=== PATIENT | male | born 1935 | race Caucasian/White ===

== ENCOUNTER → 2017-06-16 | Outpatient (REF) | payer MEDICARE, BC, OTHER | LOC: M LAB REF 13:49 | DX: R19.7 Diarrhea, unspecified (principal) | CPT/HCPCS: 87507 ==

== ENCOUNTER 2017-07-08 13:47 | Emergency (ER) | payer MEDICARE, BC, OTHER | END 2017-07-08 15:24 | disposition home or self-care (01) | LOC: M ED 13:47 | DX: M17.0 Bilateral primary osteoarthritis of knee (principal); I10 Essential (primary) hypertension; Z79.899 Other long term (current) drug therapy; Z87.891 Personal history of nicotine dependence | CPT/HCPCS: 99282 ==

== ENCOUNTER 2017-09-06 06:32 | Day surgery (SDC) | payer MEDICARE, BC, OTHER ==
[2017-09-06] MEDS: LR 1,000 ML IV (06:45)
[2017-09-06] MEDS ORDERED: PROPOFOL 200 MG/20 ML VIAL As Ordered (07:43)
[2017-09-06] MEDS ORDERED: LIDOCAINE 2% INJ 100 MG/5 ML SDV (FOR ANES.) As Ordered (07:43)
[2017-09-06 07:45] LABS: BEDSIDE GLUCOSE 112 MG/DL (83-110)
[2017-09-06] MEDS ORDERED: ePHEDrine SULFATE 25 MG/5 ML(5MG/ML) SYRINGE As Ordered (08:28)
== END 2017-09-06 09:29 | disposition home or self-care (01) ==
LOC: M OPP 06:32
DX: R19.7 Diarrhea, unspecified (principal); R19.4 Change in bowel habit; Z85.038 Personal history of other malignant neoplasm of large intestine; Z98.0 Intestinal bypass and anastomosis status; K57.30 Diverticulosis of large intestine without perforation or abscess without bleeding; I10 Essential (primary) hypertension; E78.5 Hyperlipidemia, unspecified; E11.9 Type 2 diabetes mellitus without complications; K44.9 Diaphragmatic hernia without obstruction or gangrene; K21.9 Gastro-esophageal reflux disease without esophagitis; R23.3 Spontaneous ecchymoses; M19.90 Unspecified osteoarthritis, unspecified site; G62.9 Polyneuropathy, unspecified; N40.1 Benign prostatic hyperplasia with lower urinary tract symptoms; Z92.21 Personal history of antineoplastic chemotherapy; Z87.891 Personal history of nicotine dependence; Z79.82 Long term (current) use of aspirin; Z79.84 Long term (current) use of oral hypoglycemic drugs; Z79.899 Other long term (current) drug therapy
CPT/HCPCS: 45380

== ENCOUNTER → 2018-11-13 | Outpatient (REF) | payer MEDICARE, OTHER ==
[~2018-11-13] MED LIST: ACET65TA OR; ASPI81TA26 PO; CAPS0.1C2 EX; CENTRUM SILVER OR; CO Q10 OR; GLIP5TAB2 OR; GLUC500T OR; GLUCTAB2 OR; MYLATAB OR; OMEGA FISH OIL OR; PRAV20TA2 OR; PROPYLTHIOURACIL OR; SUPETAB25 PO; VALS1TAB66; VALS40TA OR; VICO5TAB OR; VITA100067 PO; VITACAP31 OR
[2018-11-13 21:16] LABS: FOLATE > 24.0 NG/ML; VITAMIN B12 LEVEL 918 PG/ML
== END ==
LOC: M LAB REF 17:15
PROVIDERS: ATTEND Nurse Practitioner Family
DX: R41.3 Other amnesia (principal)

== ENCOUNTER → 2019-02-27 | Outpatient (REF) | payer MEDICARE, OTHER | LOC: M LAB REF 12:47 | PROVIDERS: ATTEND Nurse Practitioner Family | DX: R19.7 Diarrhea, unspecified (principal) ==

== ENCOUNTER 2019-03-29 13:12 | Emergency (ER) | payer MEDICARE, BC, OTHER ==
[~2019-03-29] VITALS: Ht 177.8 cm; Wt 88.7 kg
[~2019-03-29 13:12] MED LIST changes: -GLIP5TAB2 OR; +GLIP5TAB2 PO; -PRAV20TA2 OR; +PRAV20TA2 PO
[2019-03-29] MEDS ORDERED: NS 1,000 ML IV SCH (13:32)
[2019-03-29] MEDS ORDERED: METH25TAB PO (13:33)
[2019-03-29] MEDS ORDERED: GLIP10TA PO (13:33)
[2019-03-29] MEDS ORDERED: PRESCAP PO (13:36)
[2019-03-29] MEDS ORDERED: METF500T13 PO (13:36)
[2019-03-29] MEDS ORDERED: METF-839 PO (13:36)
[2019-03-29] MEDS ORDERED: LOSA50TA88 PO (13:36)
[2019-03-29] MEDS ORDERED: DONE10TA90 PO (13:36)
--- NOTE | 2019-03-29 14:03 | ECGEPIP ---
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
[2019-03-29 14:08] LABS: BASO % 0.3 % (0.0-1.0); EOS # 0.1 10^3/uL (0.0-0.5); HEMOGLOBIN 16.5 g/dl (13.5-17.5); LYMPH # 2.9 10^3/uL (1.5-5.0); LYMPH % 24.5 % (24.0-44.0); MEAN CORPUSCULAR HEMOGLOBIN 28.3 pg (27.0-33.0); MEAN CORPUSCULAR VOLUME 85.8 fl (80.0-96.0); MONO # 0.8 10^3/uL (0.0-0.8); MONO % 6.8 % (0.0-5.0); NEUTROPHILS # 7.9 10^3/uL (1.5-8.5); NEUTROPHILS % 67.1 % (36.0-66.0); PLATELET COUNT, AUTOMATED 332 10^3/uL (150-450); RED BLOOD COUNT 5.83 10^6/uL (4.30-6.10); WHITE BLOOD COUNT 11.8 10^3/uL (4.0-10.0)
[2019-03-29 14:37] LABS: ALBUMIN 3.5 GM/DL (3.2-5.2); BILIRUBIN,DIRECT 0.4 MG/DL (0.0-0.2); BILIRUBIN,TOTAL 2.7 MG/DL (0.2-1.0); TOTAL PROTEIN 6.7 GM/DL (6.4-8.2)
[2019-03-29] MEDS ORDERED: NS 500 ML IV ONE (14:45)
--- NOTE | 2019-03-29 14:48 | REP ---
Clinical: Abdominal pain. Technique: Axial noncontrast images from the lung bases to the pubic symphysis with coronal and sagittal re-formations. Comparison: None. Findings: Lung bases are clear. Atherosclerotic changes to the eighth thoracic aorta and coronary arteries noted without cardiomegaly. Liver, spleen, pancreas, bilateral adrenal glands are normal for noncontrast evaluation. Symmetric age-related changes to the kidneys noted without hydronephrosis. The enteric system is without obstruction or acute inflammatory process. Colonic and sigmoid diverticulosis noted without acute diverticulitis. Pelvis demonstrates normal bladder and moderately prominent prostate gland. No ascites. No free air. No adenopathy. Atherosclerotic changes of the aorta and vasculature noted without aneurysm. Musculoskeletal structures demonstrate degenerative changes without focal abnormality. Impression: 1. No acute abdominopelvic pathology appreciated. No ascites. No adenopathy. No focal inflammatory stranding. 2. Diverticulosis without acute diverticulitis. 3. Further chronic nonacute findings as above. Electronically Signed by Monroe Mcpherson MD 03/29/2019 02:39 P
[2019-03-29] MEDS ORDERED: ELIQ5TAB PO (15:35)
[2019-03-29] MEDS ORDERED: APIXABAN 2.5 MG TAB (ELIQUIS) PO ONE (15:45)
[2019-03-29 15:47] VITALS: BP 153/64
== END 2019-03-29 15:56 | disposition home or self-care (01) ==
LOC: M ED 13:12
DX: I48.91 Unspecified atrial fibrillation (principal); N18.9 Chronic kidney disease, unspecified; E11.9 Type 2 diabetes mellitus without complications; I12.9 Hypertensive chronic kidney disease with stage 1 through stage 4 chronic kidney disease, or unspecified chronic kidney disease; E07.9 Disorder of thyroid, unspecified; E78.5 Hyperlipidemia, unspecified; G62.9 Polyneuropathy, unspecified; Z85.038 Personal history of other malignant neoplasm of large intestine

== ENCOUNTER → 2019-04-20 | Outpatient (REF) | payer MEDICARE, OTHER ==
[~2019-04-20] MED LIST changes: +DONE10TA90 PO; +ELIQ5TAB PO; +GLIP10TA PO; +LOSA50TA88 PO; +METF-839 PO; +METF500T13 PO; +METH25TAB PO; +PRESCAP PO
== END ==
LOC: M LAB REF 17:06
PROVIDERS: ATTEND Nurse Practitioner Family
DX: E04.9 Nontoxic goiter, unspecified (principal)

== ENCOUNTER 2019-05-05 10:08 | Emergency (ER) | payer MEDICARE, OTHER, BC ==
[~2019-05-05] VITALS: Ht 175.3 cm; Wt 88.2 kg
[2019-05-05] MEDS ORDERED: ALBUTEROL SULFATE 2.5 MG/0.5 ML INH NEB SOLN INH ONE (10:45)
--- NOTE | 2019-05-05 11:14 | REP ---
Chest x-ray: Two views. Comparison study : January 21, 2010. History: Wheezing. Findings: The lungs are symmetrically aerated and free of infiltrate. Pleural angles are sharp. There are degenerative changes in the thoracic spine. The heart is not enlarged. There are clips in right upper quadrant of the abdomen. Pulmonary vasculature is not increased. There is some shift of the trachea to the right at the thoracic inlet consistent with enlargement of the left thyroid. This is unchanged from the 2010 study. Impression: No acute disease. Electronically Signed by Choco River MD 05/05/2019 11:04 A
[2019-05-05 11:21] LABS: BASO # 0.1 10^3/uL (0.0-0.2); BASO % 0.6 % (0.0-1.0); EOS # 0.8 10^3/uL (0.0-0.5); EOS % 7.5 % (0.0-3.0); HEMATOCRIT 46.8 % (42.0-52.0); HEMOGLOBIN 14.7 g/dl (13.5-17.5); LYMPH # 3.2 10^3/uL (1.5-5.0); LYMPH % 29.6 % (24.0-44.0); MEAN CORPUSCULAR HEMOGLOBIN 27.9 pg (27.0-33.0); MEAN CORPUSCULAR HGB CONC 31.4 g/dl (32.0-36.5); MONO # 0.9 10^3/uL (0.0-0.8); MONO % 8.2 % (0.0-5.0); NEUTROPHILS # 5.8 10^3/uL (1.5-8.5); PLATELET COUNT, AUTOMATED 292 10^3/uL (150-450); RED BLOOD COUNT 5.26 10^6/uL (4.30-6.10); WHITE BLOOD COUNT 10.9 10^3/uL (4.0-10.0)
[2019-05-05 11:45] LABS: CK-MB VALUE MASS 1.7 NG/ML (<3.6); CPK CREATINE PHOSPHOKINASE 36 U/L (39-308); MB/CK RELATIVE INDEX 4.72 (< OR =4); TROPONIN I < 0.02 NG/ML (< 0.10)
[2019-05-05 11:52] LABS: CALCIUM LEVEL 8.9 MG/DL (8.8-10.2); CREATININE FOR GFR 1.66 MG/DL (0.70-1.30); GLOMERULAR FILTRATION RATE 42.4 (>35); POTASSIUM SERUM 4.2 MEQ/L (3.5-5.1); THYROID STIMULATING HORMONE 1.33 uIU/ML (0.358-3.740); THYROXINE (T4) 7.8 UG/DL (4.5-12.0)
[2019-05-05] MEDS ORDERED: PRED10TA2 PO (12:51)
[2019-05-05] MEDS ORDERED: predniSONE 20 MG TAB PO STA (12:54)
[2019-05-05 13:07] VITALS: BP 167/76
--- NOTE | 2019-05-06 05:51 | ECGEPIP ---
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
== END 2019-05-05 13:27 | disposition home or self-care (01) ==
LOC: M ED 10:08
DX: J45.909 Unspecified asthma, uncomplicated (principal); I48.91 Unspecified atrial fibrillation; R00.1 Bradycardia, unspecified; I44.0 Atrioventricular block, first degree; I45.89 Other specified conduction disorders; R06.2 Wheezing; E11.9 Type 2 diabetes mellitus without complications; I10 Essential (primary) hypertension; E07.9 Disorder of thyroid, unspecified; Z85.038 Personal history of other malignant neoplasm of large intestine; Z90.49 Acquired absence of other specified parts of digestive tract; Z79.01 Long term (current) use of anticoagulants; Z79.84 Long term (current) use of oral hypoglycemic drugs; Z79.899 Other long term (current) drug therapy

== ENCOUNTER → 2019-05-24 | Outpatient (REF) | payer MEDICARE, OTHER ==
[~2019-05-24] MED LIST changes: +PRED10TA2 PO
[2019-05-24 18:00] LABS: TOTAL PROTEIN 5.9 GM/DL (6.4-8.2)
[2019-05-24 18:06] LABS: FOLATE > 24.0 NG/ML; VITAMIN B12 LEVEL 718 PG/ML
== END ==
LOC: M LAB REF 16:16
PROVIDERS: ATTEND Internal Medicine
DX: E11.40 Type 2 diabetes mellitus with diabetic neuropathy, unspecified (principal); E07.9 Disorder of thyroid, unspecified

== ENCOUNTER → 2019-05-30 | Outpatient (CLI) | payer MEDICARE, OTHER ==
[2019-05-30 12:25] LABS: BASO % 0.6 % (0.0-1.0); EOS # 0.4 10^3/uL (0.0-0.5); EOS % 5.6 % (0.0-3.0); HEMATOCRIT 43.1 % (42.0-52.0); HEMOGLOBIN 13.4 g/dl (13.5-17.5); LYMPH # 2.1 10^3/uL (1.5-5.0); LYMPH % 33.9 % (24.0-44.0); MEAN CORPUSCULAR HEMOGLOBIN 27.9 pg (27.0-33.0); MEAN CORPUSCULAR HGB CONC 31.1 g/dl (32.0-36.5); MEAN CORPUSCULAR VOLUME 89.8 fl (80.0-96.0); MONO # 0.5 10^3/uL (0.0-0.8); MONO % 7.4 % (0.0-5.0); NEUTROPHILS # 3.3 10^3/uL (1.5-8.5); NEUTROPHILS % 52.2 % (36.0-66.0); PLATELET COUNT, AUTOMATED 248 10^3/uL (150-450); WHITE BLOOD COUNT 6.2 10^3/uL (4.0-10.0)
[2019-05-30 13:04] LABS: ALBUMIN 3.4 GM/DL (3.2-5.2); BILIRUBIN,TOTAL 1.3 MG/DL (0.2-1.0); CALCIUM LEVEL 8.8 MG/DL (8.8-10.2); CREATININE FOR GFR 1.5 MG/DL (0.70-1.30); FREE T4 0.93 NG/DL (0.76-1.46); GLOMERULAR FILTRATION RATE 47.7 (>35); POTASSIUM SERUM 4.2 MEQ/L (3.5-5.1); THYROID STIMULATING HORMONE 1.7 uIU/ML (0.358-3.740)
== END ==
LOC: M LAB 10:31
PROVIDERS: ATTEND Internal Medicine Gastroenterology
DX: R19.7 Diarrhea, unspecified (principal)

== ENCOUNTER → 2019-06-01 | Outpatient (REF) | payer MEDICARE, OTHER | LOC: M LAB REF 15:08 | PROVIDERS: ATTEND Internal Medicine Gastroenterology | DX: R19.7 Diarrhea, unspecified (principal) ==

== ENCOUNTER → 2020-03-19 | Outpatient (CLI) | payer MEDICARE, BC, OTHER ==
[2020-03-19 13:18] LABS: CREATININE FOR GFR 1.94 MG/DL (0.70-1.30); GLOMERULAR FILTRATION RATE 35.4 (>35)
== END ==
LOC: M LAB 12:03
PROVIDERS: ATTEND Otolaryngology
DX: E04.9 Nontoxic goiter, unspecified (principal)

== ENCOUNTER → 2020-03-24 | Outpatient (CLI) | payer MEDICARE, BC, OTHER ==
[~2020-03-24] MED LIST changes: +ISOVUE-370 76% 100ML VIAL As Ordered ONE
--- NOTE | 2020-03-24 10:23 | REPVR ---
PROCEDURE INFORMATION: Exam: CT Neck With Contrast Exam date and time: 03/24/2020 9:45 AM Age: 84 years old Clinical indication: Condition or disease; Other: Large goiter TECHNIQUE: Imaging protocol: Computed tomography images of the neck with intravenous contrast. Radiation optimization: All CT scans at this facility use at least one of these dose optimization techniques: automated exposure control; mA and/or kV adjustment per patient size (includes targeted exams where dose is matched to clinical indication); or iterative reconstruction. Contrast material: ISOVUE 370; Contrast volume: 50 ml; Contrast route: INTRAVENOUS (IV); COMPARISON: No relevant prior studies available. FINDINGS: Nasopharynx: Unremarkable. Oropharynx: Unremarkable. No significant tonsillar enlargement. Hypopharynx: Unremarkable. Larynx: Unremarkable. Normal epiglottis. Retropharyngeal space: Unremarkable. Submandibular/Parotid glands: Normal. Glands are normal in size. Thyroid: There is diffuse, masslike enlargement of the thyroid gland, with superior submandibular and inferior substernal extension. It appears heterogeneous, with ill-defined hypodensities and scattered calcifications. This measures up to 11.4 x 6.2 x 11 cm. There is mass effect upon the trachea and esophagus, both of which are displaced to the right. Lymph nodes: Unremarkable. No lymphadenopathy. Trachea: Visualized trachea is unremarkable. Lungs: Unremarkable as visualized. Bones/joints: Unremarkable. No acute fracture. Soft tissues: IMPRESSION: Markedly enlarged thyroid gland, compatible with goiter, with submandibular and substernal extension. Electronically signed by: Jasmin Ace On 03/24/2020 10:23:56 AM
== END ==
LOC: M RAD 08:59
PROVIDERS: ATTEND Otolaryngology
DX: E05.00 Thyrotoxicosis with diffuse goiter without thyrotoxic crisis or storm (principal)
CPT/HCPCS: 70491; Q9967

== ENCOUNTER → 2020-05-15 | Outpatient (REF) | payer MEDICARE, OTHER ==
[~2020-05-15] MED LIST changes: -ISOVUE-370 76% 100ML VIAL As Ordered ONE
== END ==
LOC: M LAB REF 09:06
PROVIDERS: ATTEND Dermatology
DX: L90.5 Scar conditions and fibrosis of skin (principal)

== ENCOUNTER → 2021-02-10 | Outpatient (REF) | payer MEDICARE, OTHER | LOC: M LAB REF 16:23 | PROVIDERS: ATTEND Internal Medicine | DX: C18.9 Malignant neoplasm of colon, unspecified (principal) ==

== ENCOUNTER 2021-02-14 16:49 | Emergency (ER) | payer MEDICARE, OTHER ==
[~2021-02-14] VITALS: Ht 182.9 cm; Wt 102.3 kg
[2021-02-14] MEDS ORDERED: DERMABOND TOPICAL SKIN ADHESIVE TOP ONE (17:40)
--- OUTSIDE RECORDS SUMMARY | 2021-02-14 17:41 | CCD | Continuity of Care Document ---
Author Author [facility] Organization Unknown Address [address] [place] [address] Phone [phone] Care Team Providers Care Junior Loan Processor Name Role Phone Tanika Zamora M.D. AUTM [phone] Problems Active Problems Provider Date Numbness Umberto Ross M.D. Onset: 05/24/2019 Memory impairment Umberto Ross M.D. Onset: 05/24/2019 Social History Type Date Description Comments Sex Unknown Tobacco Use Start: Unknown Patient has never smoked Allergies, Adverse Reactions, Alerts Description No Known Drug Allergies Medications Active Medications SIG Qnty Indications Ordering Provide r Date Memantine HCL 10mg Tablets take 1/2 tab twice a day for 2 weeks then take1 by mouth twice a day 60tabs Umberto Ross M.D. 05/24/2019 Donepezil HCL 10mg Tablets take one tablet by mouth every day at bedtime 30tabs Yara Bower Eliquis 2.5mg Tablets pt takes twice a day Umberto Ross M.D. Immunizations Description No Information Available Vital Signs Date Vital Result Comment 12/01/2020 12:13pm Respiratory Rate 12 /min Height 70.5 inches 5'10.50" Weight 204.00 lb BMI (Body Mass Index) 28.9 kg/m2 [place] Body Weight 166 lb 03/13/2020 10:47am Respiratory Rate 12 /min Height 70.5 inches 5'10.50" Weight 204.00 lb BMI (Body Mass Index) 28.9 kg/m2 [place] Body Weight 166 lb Results Description No Information Available Procedures Date Code Description Status 01/09/2021 30582 Sympathetic Skin Responses Compl eted 01/09/2021 77335 Test Autonomic Nervous System, C ardiovagal Innervation Completed 01/09/2021 63710 Artery Study Extremity Mult Leve ls Bilateral Completed 01/08/2021 30529 EEG Recording Awake & Asleep Com pleted 12/01/2020 05640 Office/Outpatient Established Mo d MDM 30-39 Min Completed 12/01/2020 3288F Fall Risk Assessment Documented Completed Medical Devices Description No Information Available Encounters Type Date Location Provider Dx Diagnosis Office Visit 12/01/2020 11:45a [facility] Umberto chen M.D. 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 01/09/2021 E11.40 Type 2 diabetes brandi itus with diabetic neuropathy, unspecified Ans/VS 01/09/2021 E11.59 Type 2 diabetes mellitus with ot her circulatory complications Ans/VS 01/08/2021 R41.82 Altered mental status, unspecifi ed EEG 12/01/2020 F01.50 Vascular dementia without behavi oral disturbance Umberto Ross M.D. Plan of Treatment Future Appointment(s):* 2021 11:00 am - Umberto Ross M.D. at [facility] Functional Status Description No Information Available Mental Status Description No Information Available Referrals Description No Information Available
--- OUTSIDE RECORDS SUMMARY | 2021-02-14 17:41 | CCD | Continuity of Care Document ---
Author Author Jones Loving M.D. Organization Unknown Address [address] [place] [address] [address] [place] [address] Phone [phone] Care Team Providers Care Inclusion Internship Name Role Phone Tanika Loving MD AUTM [phone] Scott Deluca MD AUTM [phone] Adriana Ferrara [employer] AUTM [phone] Tavo Tesfaye MD AUTM [phone] [facility] - Ortho AUTM Harika Burns MD AUTM [phone] Jay Kirkpatrick DO AUTM [phone] Problems Active Problems Provider Date Toxic diffuse goiter with no crisis Criss Weber,CECIL Onse t: 11/13/2019 Cough Tanika Loving M.D. Onset: 0 Indigestion Tanika Loving M.D. Onset: 0 Type 2 diabetes mellitus with diabetic neuropathy, uns pecified Tanika Loving M.D. Onset: 11/13/2019 Pure hypercholesterolemia Tanika Loving M.D. Onset: Hypertensive chronic kidney disease with stage 1 through stage 4 chronic kidney disease, or unspecified chronic kidney disease Tanika Loving M.D. Onset: 11/13/2019 Chronic kidney disease stage 3 Tanika Loving M.D. Onset : 11/13/2019 Paroxysmal atrial fibrillation Tanika Loving M.D. Onset : 11/13/2019 Long-term current use of anticoagulant David Villalobos Onset: 11/13/2019 Allergic rhinitis Tanika Loving M.D. Onset: 0 Diarrhea Tanika Loving M.D. Onset: 0 Social History Type Date Description Comments Sex Unknown ETOH Use Currently consumes alcohol 3 per week Tobacco Use Start: Unknown End: Unknown Patient is a former smoker X20YRS 1 PACK A WEEK. QUIT AT AGE 36. Allergies and adverse reactions Description No Known Drug Allergies Medications Active Medications SIG Qnty Indications Ordering Provide r Date Hydralazine HCL 10mg Tablets 1 by mouth bid Tanika Loving M.D. 10/09/19 21 Hydrochlorothiazide 25mg Tablets 1 by mouth every day Tanika Loving M.D. 10/09/19 21 Glipizide 5mg Tablets Take 1 Tablets By Mouth Twice A Day 180tabs Tanika Loving M.D. 2020 Vitamin B Complex-C Capsules 1 by mouth every day Tanika Loving M.D. 05/27/19 21 Centrum Silver 50+Men 50+Men Table ts 1 by mouth every day Tanika Loving M.D. 05/27/19 21 Preservision Areds 2 Areds 2 Capsu les 1 by mouth twice a day Tanika Loving M.D. 2020 Total Memory & Focus Formula Tablets qd Tanika Loving M.D. 05/27/2020 Gabapentin 100mg Capsules 1 by mouth bid Neuro Tanika Loving M.D. 03/06/2020 Microspacer Misc as precribed dx copd/sob/cough 2units Tanika Loving M.D. 03/06/20 20 Duloxetine HCL 20[address] C[address] Part Take One Capsule By Mouth Every Day 90caps David Villalobos 02/05/2020 Memantine HCL 10mg Tablets Take One Tablet By Mouth Twice A Day 180tabs Tanika Loving M.D. Losartan Potassium 100mg Tablets Take One Tablet By Mouth qhs Tanika Loving M.D. 10/30 Tradjenta 5mg Tablets 1 by mouth every morning 90tabs Tanika Loving M.D. 09/18/19 [address] Take One Capsule By Mouth Every Day 90caps David Villalobos 05/30/2019 Benzonatate 200mg Capsules Take One Capsule By Mouth Three Times A Day as Needed For Cough 60caps Tanika Loving M.D. 05/14/2019 Proair HFA 108(90Base) mcg/Act Aer osol 2 puffs up to four times daily as needed for cough or shortness of breath 8.500gm R06.2 Tanika Loving M.D. 04/11/2019 Fluticasone Propionate Nasal Preston Aller gy Relief 24- Hour 50mcg/Act Suspension 2 sprays each nostril daily x 2 weeks then as needed 15.800ml Criss Weber FNP 01/29/2019 Donepezil HCL 10mg Tablets Take One Tablet By Mouth Every Day 30tabs Tanika Loving M.D. 01/29 Timolol Maleate 0.5% Solution Instill One Drop Into Each Eye Two Times A Day 15units Tanika meyer M.D. 11/13/2018 Ge100 Blood Glucose Test Strips S trips Test Once Daily E11.9 100units Criss Weber FNP 10/02 Methimazole 5mg Tablets take one tablet ,w,, tuesday 60tabs Tanika Loving M.D. 018 Accu-Chek Compact Plus Care Kit K it Use bid E11.9 1brandon Loving M.D. 06/23/19 17 Accu Chek Compact Plus Kit test bid or as directed e11.9 1unCriss Ordoñez FNP 05/19/2016 Pravastatin Sodium 40mg Tablets Take One Tablet By Mouth Every Day 90tabs Nemesio Villalobos Eliquis 2.5mg Tablets 1 by mouth twice a day Unknown Colesevelam HCL 625mg Tablets Take One To Two Tablets By Mouth Three Times A Day 180tabs Tanika Loving M.D. Calcitriol 0.25mcg Capsules 1 by mouth every day Unknown Medications Administered in Office Medication SIG Qnty Indications Ordering Provider Date Covid-19 vaccine, Unspecified Inj ection Unknown 05/19/2020 Immunizations CPT Code Status Date Vaccine Lot # U-Flu Given 01/17/2020 Influenza,Unspecified U-Flu Given 02/20/2019 Influenza,Unspecified [id number] Given 05/16/2018 Pneumovax 23 [id number] U-Flu Given 02/28/2018 Influenza,Unspecified U-PneuC Given 02/24/2016 Prevnar 13 [id number] Refused 05/16/2018 Shingrix Zoster Vaccine (HZV), Recombinant, Subunit, Adjuvanted 36410 Refused 05/16/2018 Zoster Vaccine [id number] Refused 05/16/2018 Tetanus/Diptheria(Td)Toxoids Preservative Free Vital Signs Date Vital Result Comment 02/10/2021 9:30am BP Systolic 140 mmHg BP Diastolic 80 mmHg BP Systolic Recheck 144 mmHg BP Diastolic Recheck 80 mmHg Heart Rate 56 /min Height 70.5 inches 5'10.50" Weight 212.00 lb BMI (Body Mass Index) 30.0 kg/m2 10/08/2020 1:32pm BP Systolic 150 mmHg BP Diastolic 80 mmHg BP Systolic Recheck 144 mmHg BP Diastolic Recheck 80 mmHg Heart Rate 54 /min Height 70.5 inches 5'10.50" Weight 210.00 lb BMI (Body Mass Index) 29.7 kg/m2 Results Test Acquired Date Facility Test Result H/L Range Note Laboratory test finding 02/10/2021 [facility] [address] [place] [address] [phone] Carcinoembryonic Antigen 2.5 NG/ML Normal <2.5 1 Complete Blood Count 02/10/2021 [facility] Machine Operator: [place] [address] [phone] WBC 8.1 x10*3/UL 4.1 - 10.9 RBC 5.04 x10*6/UL 4.20 - 6.30 Hemoglobin 14.3 g/dL 12.0 - 18.0 Hematocrit 43.1 % 37.0 - 51.0 MCV 85.5 fL 80.0 - 97.0 MCH 28.4 pg 26.0 - 32.0 MCHC 33.3 g/dL 31.0 - 38.0 RDW 12.9 % 11.6 - 13.7 PLT 215 x10*3/UL 140 - 440 MPV 8.6 FL 7.8 - 11.0 Lymph % 28.3 % 10.0 - 58.5 Mid % 6.7 % 1.7 - 9.3 Neut % 65.0 % 37.0 - 92.0 Lymph # 2.3 x10*3/UL 0.6 - 4.1 Mid # 0.5 x10*3/UL 0.1 - 0.6 Neut # 5.3 x10*3/UL 2.0 - 7.8 A1c 02/10/2021 [facility] Machine Operator: Dr Almas Macias [place], [place] [id number] [phone] Hba1c 6.5 % High <5.7 2 Est Avg Glucose 140 mg/dL High 60 - 110 Laboratory test finding 02/10/2021 [facility] [employer] [facility] zoe brice Monogram Machine Operator: Dr Almas Macias [place], [place] [id number] [phone] Magnesium 1.7 mg/dL Low 1.8 - 2.4 Basic Metabolic Panel 02/10/2021 [facility] Machine Operator: Dr Almas Macias [place], [place] [id number] [phone] Glucose 143 mg/dL High 74 - 99 3 BUN 31 mg/dL High 7 - 18 Creatinine 1.9 mg/dL High 0.6 - 1.3 Sodium 141 mEq/L 136 - 145 Potassium 4.4 mEq/L 3.5 - 5.1 Chloride 103 mEq/L 98 - 107 Carbon Dioxide 32 mEq/L 21 - 32 Calcium 9.5 mg/dL 8.5 - 10.1 GFR 34 mL/min Low >60 GFR 41 mL/min Low >60 4 Laboratory test finding 02/10/2021 [facility] [employer] [facility] zoe brice Monogram Machine Operator: Dr Coburn [place] [id number] [phone] Thyroid Stimulating Hormone 0.37 uIU/mL 0.3 6 - 3.74 Complete Blood Count 08/28/2020 [facility] Machine Operator: Dr Almas Macias [place], [place] [id number] [phone] WBC 8.4 x10*3/UL 4.1 - 10.9 RBC 5.01 x10*6/UL 4.20 - 6.30 Hemoglobin 14.2 g/dL 12.0 - 18.0 Hematocrit 42.3 % 37.0 - 51.0 MCV 84.4 fL 80.0 - 97.0 MCH 28.4 pg 26.0 - 32.0 MCHC 33.6 g/dL 31.0 - 38.0 RDW 13.0 % 11.6 - 13.7 PLT 242 x10*3/UL 140 - 440 MPV 8.3 FL 7.8 - 11.0 Lymph % 25.6 % 10.0 - 58.5 Mid % 5.9 % 1.7 - 9.3 Neut % 68.5 % 37.0 - 92.0 Lymph # 2.1 x10*3/UL 0.6 - 4.1 Mid # 0.6 x10*3/UL 0.1 - 0.6 Neut # 5.7 x10*3/UL 2.0 - 7.8 A1c 08/28/2020 [facility] Machine Operator: Dr Almas Macias [place] [id number] [phone] Hba1c 6.6 % High <5.7 5 Est Avg Glucose 143 mg/dL High 60 - 110 Laboratory test finding 08/28/2020 [facility] Monogram Machine Operator: [place] [address] [phone] Magnesium 1.6 mg/dL Low 1.8 - 2.4 Comprehensive Chem Profile 08/28/2020 [facility] Machine Operator: [place] [address] [phone] Glucose 148 mg/dL High 74 - 99 6 BUN 35 mg/dL High 7 - 18 Creatinine 2.0 mg/dL High 0.6 - 1.3 Sodium 142 mEq/L 136 - 145 Potassium 4.2 mEq/L 3.5 - 5.1 Chloride 103 mEq/L 98 - 107 Carbon Dioxide 32 mEq/L 21 - 32 Calcium 9.2 mg/dL 8.5 - 10.1 Alk. Phosphatase 87 mg/dL 46 - 116 Total Bilirubin 1.4 mg/dL High 0.2 - 1.0 Ast (Sgot) 12 U/L Low 15 - 37 Alt (SGPT) 22 U/L 12 - 78 Albumin 3.8 g/dL 3.4 - 5.0 Total Protein 6.8 g/dL 6.4 - 8.2 A/G Ratio 1.27 CALC 1.00 - 1.90 GFR 32 mL/min Low >60 GFR 39 mL/min Low >60 7 Lipid Profile 08/28/[address] [facility] [address] [facility] Machine Operator: [place] [address] [phone] Cholesterol 192 mg/dL 131 - 200 Triglycerides 206 mg/dL High 30 - 150 HDL Cholesterol 54 mg/dL 35 - 60 LDL (Calculated) 97 CALC 50 - 159 Laboratory test finding 08/28/2020 [facility] [employer] [facility] david Monogram Machine Operator: [place] [address] [phone] Thyroid Stimulating Hormone 0.10 uIU/mL Low 0.3 6 - 3.74 Laboratory test finding 08/28/2020 [facility]: [place] [address] [phone] T4 Free 1.34 ng/dL 0.76 - 1.46 1 THE CEA ASSAY IS PERFORMED O N THE [employer] BY CHEMILUMINESCENCE AND SHOULD NOT BE COMPARED INTERCHANGEABLY WITH OTHER METHODS. IT SHOULD NOT BE USED ALONE A SCREENING TEST OR DIAGNOSIS FOR THE PRESENCE OR ABSENCE OF MALIGNANT DISEASE. PREDICTIONS OF DISEASE RECURRENCE SHOULD NOT BE BASED SOLELY ON VALUES OBTAINED FROM SERIAL PATIENT SERUM VALUES. 2 Lab Result Notes: Pre-Diabetes 5.7 - 6.4 % Diabetes = or > 6.5% 3 100-125 mg/dL PRE-DIABET ES/FASTING >126 mg/dL DIABETES/FASTING 4 CHRONIC KIDNEY DISEASE STAGI NG PER NKF STAGE I & II GFR >= 60 NORMAL TO MILDLY DECREASED STAGE III GFR 30-59 MODERATELY DECREASED STAGE IV GFR 15-29 SEVERELY DECREASED STAGE V GFR <15 VERY LITTLE GFR LEFT ESRD GFR <15 ON PHARMACEUTICAL LABORATORY TECHNICIAN 5 Lab Result Notes: Pre-Diabetes 5.7 - 6.4 % Diabetes = or > 6.5% 6 100-125 mg/dL PRE-DIABET ES/FASTING >126 mg/dL DIABETES/FASTING 7 CHRONIC KIDNEY DISEASE STAGI NG PER NKF STAGE I & II GFR >= 60 NORMAL TO MILDLY DECREASED STAGE III GFR 30-59 MODERATELY DECREASED STAGE IV GFR 15-29 SEVERELY DECREASED STAGE V GFR <15 VERY LITTLE GFR LEFT ESRD GFR <15 ON PHARMACEUTICAL LABORATORY TECHNICIAN Procedures Date Code Description Status 01/22/2021 666671197 Diabetic Retinal Eye Exam Comple mitch 10/08/2020 84758 Office/Outpatient Established Mo d MDM 30-39 Min Completed 08/28/2020 28191 Office/Outpatient Established Mo d MDM 30-39 Min Completed 09/16/2017 [id number] Diabetic Retinal Eye Exam Comple mitch 09/06/2017 10283770 Colonoscopy Completed 11/22/2016 [id number] Diabetic Retinal Eye Exam Comple mitch 01/14/2015 [id number] Colonoscopy Completed Medical Devices Description No Information Available Encounters Type Date Location Provider Dx Diagnosis Office Visit 10/08/2020 1:30p Mark Morales P.CN[facility]olas Loving M.D. 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 in oth diseases cla ssd elswhr w/o behavrl disturb I12.9 Hypertensive chronic kidney disease w stg 1-4/unsp chr kdny N18.30 Chronic kidney disease, stag e 3 unspecified E11.22 Type 2 diabetes mellitus w d iabetic chronic kidney disease G62.9 Polyneuropathy, unspecified R19.7 Diarrhea, unspecified C18.9 Malignant neoplasm of colon, unspecified E04.2 Nontoxic multinodular goiter J45.909 Unspecified asthma, uncompli cated K44.9 Diaphragmatic hernia without obstruction or gangrene M15.9 Polyosteoarthritis, unspecif ied I48.0 Paroxysmal atrial fibrillati on 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 Adam Loving M.D. 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 02/10/2021 I12.9 Hypertensive chronic kidney disease with stage 1 through stage 4 chronic kidney disease, or unspecified chronic kidney disease Tanika Loving M.D. 02/10/2021 N18.30 Chronic kidney disease, stage 3 unspecified Tanika Loving M.D. 02/10/2021 E11.22 Type 2 diabetes mellitus with di abetic chronic kidney disease Tanika Loving M.D. 02/10/2021 G62.9 Polyneuropathy, unspecified Celi Loving M.D. 02/10/2021 R19.7 Diarrhea, unspecified Tanika peña M.D. 02/10/2021 C18.9 Malignant neoplasm of colon, uns pecified Tanika Loving M.D. 02/10/2021 E04.2 Nontoxic multinodular goiter Adam Loving M.D. 02/10/2021 J45.909 Unspecified asthma, uncomplicate d Tanika Loving M.D. 02/10/2021 F02.80 Dementia in other di seases classified elsewhere without behavioral disturbance Tanika Loving M.D. 02/10/2021 K44.9 Diaphragmatic hernia without obs truction or gangrene Tanika Loving M.D. 02/10/2021 M19.90 Unspecified osteoarthritis, unsp ecified site Tanika Loving M.D. 02/10/2021 I48.0 Paroxysmal atrial fibrillation Tre Loving M.D. 02/10/2021 Z79.01 automotive accessory installer (current) use of antic oagulants Tanika Loving M.D. 10/08/2020 E05.00 Thyrotoxicosis with diffuse goiter without thyrotoxic crisis or storm Tanika Loving M.D. 10/08/2020 F02.80 Dementia in other di seases classified elsewhere without behavioral disturbance Tanika Loving M.D. 10/08/2020 I12.9 Hypertensive chronic kidney disease with stage 1 through stage 4 chronic kidney disease, or unspecified chronic kidney disease Tanika Loving M.D. 10/08/2020 N18.30 Chronic kidney disease, stage 3 unspecified Tanika Loving M.D. 10/08/2020 E11.22 Type 2 diabetes mellitus with di abetic chronic kidney disease Tanika Loving M.D. 10/08/2020 G62.9 Polyneuropathy, unspecified Celi Loving M.D. 10/08/2020 R19.7 Diarrhea, unspecified Tanika peña M.D. 10/08/2020 C18.9 Malignant neoplasm of colon, uns pecdottie Loving M.D. 10/08/2020 E04.2 Nontoxic multinodular goiter Adam Loving M.D. 10/08/2020 J45.909 Unspecified asthma, uncomplicate d Tanika Loving M.D. 10/08/2020 K44.9 Diaphragmatic hernia without obs truction or gangrene Tanika Loving M.D. 10/08/2020 M15.9 Polyosteoarthritis, unspecified Tanika Loving M.D. 10/08/2020 I48.0 Paroxysmal atrial fibrillation Tre Loving M.D. 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 08/28/2020 I48.0 Paroxysmal atrial fibrillation Tre Loving M.D. 08/28/2020 Z79.01 FPC (current) use of antic oagulants Tanika Loving M.D. 08/28/2020 I12.9 Hypertensive chronic kidney disease with stage 1 through stage 4 chronic kidney disease, or unspecified chronic kidney disease Tanika Loving M.D. 08/28/2020 N18.30 Chronic kidney disease, stage 3 unspecified Tanika Loving M.D. 08/28/2020 E11.22 Type 2 diabetes mellitus with di abetic chronic kidney disease Tanika Loving M.D. 08/28/2020 G62.9 Polyneuropathy, unspecified Celi Loving M.D. 08/28/2020 E78.00 Pure hypercholesterolemia, unspe cified Tanika Loving M.D. 08/28/2020 R19.7 Diarrhea, unspecified Tanika peña M.D. 08/28/2020 E04.2 Nontoxic multinodular goiter Adam Loving M.D. Plan of Treatment Future Appointment(s):* 05/14/2021 9:30 am - [facility] 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 * I12.9 Hypertensive chronic kidney disease with stage 1 through stage 4 chronic kidney disease, or unspecified chronic kidney disease * N18.30 Chronic kidney disease, stage 3 unspecified * E11.22 Type 2 diabetes mellitus with diabetic chronic kidney disease * G62.9 Polyneuropathy, unspecified * R19.7 Diarrhea, unspecified * C18.9 Malignant neoplasm of colon, unspecified * E04.2 Nontoxic multinodular goiter * J45.909 Unspecified asthma, uncomplicated * F02.80 Dementia in other diseases classified elsewhere without behavioral disturbance * K44.9 Diaphragmatic hernia without obstruction or gangrene * M19.90 Unspecified osteoarthritis, unspecified site * I48.0 Paroxysmal atrial fibrillation * 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 They have had the flu shot and the COVID vaccine, waiting for booster to be approved. Functional Status Description No Information Available Mental Status Description No Information Available Referrals Description No Information Available
--- OUTSIDE RECORDS SUMMARY | 2021-02-14 17:41 | CCD | Continuity of Care Document ---
Author Author Reema/Jones SYED Organization Unknown Address [address] [place] [address] Phone [phone] Care Team Providers Care Rubber Down Name Role Phone Tanika Zamora M.D. AUTM [phone] Problems Active Problems Provider Date Numbness Umberto [...] lb BMI (Body Mass Index) 28.9 kg/m2 Vowinckel Body Weight 166 lb 03/13/2020 10:47am Respiratory Rate 12 /min Height 70.5 inches 5'10.50" Weight 204.00 lb BMI (Body Mass Index) 28.9 kg/m2 Vowinckel Body Weight 166 lb Results Description No Information Available Procedures Date Code Description Status 01/08/2021 76647 EEG Recording Awake & Asleep Com pleted 12/01/2020 00480 Office/Outpatient Established Mo d MDM 30-39 Min Completed 12/01/2020 3288F Fall Risk Assessment Documented Completed Medical Devices Description No Information Available Encounters Type Date Location Provider Dx Diagnosis Office Visit 12/01/2020 11:45a [facility] office - [place] Umberto chen M.D. F01.50 Vascular dementia without behavioral dis turbance Assessments Date Code Description Provider 01/08/2021 R41.82 Altered mental status, unspecifi ed EEG 12/01/2020 F01.50 Vascular dementia without behavi oral disturbance Umberto Ross M.D. Plan of Treatment Future Appointment(s):* 2021 11:00 am - Umberto Ross M.D. at [facility] Functional Status Description No Information Available Mental Status Description No Information Available Referrals Description No Information Available
--- OUTSIDE RECORDS SUMMARY | 2021-02-14 17:41 | CCD | Continuity of Care Document ---
Author Jones Cardoso M.D. Organization Unknown Address [address] [place] [address] Phone [phone] Care Team Providers Care Power System Electrical Engineer Name Role Phone Tanika Zamora M.D. AUTM [phone] Problems Active Problems Provider Date Numbness Umberto [...] lb BMI (Body Mass Index) 28.9 kg/m2 Stephan Body Weight 166 lb 03/13/2020 10:47am Respiratory Rate 12 /min Height 70.5 inches 5'10.50" Weight 204.00 lb BMI (Body Mass Index) 28.9 kg/m2 Stephan Body Weight 166 lb Results Description No Information Available Procedures Date Code Description Status 12/01/2020 36750 Office/Outpatient Established Mo d MDM 30-39 Min Completed 12/01/2020 3288F Fall Risk Assessment Documented Completed Medical Devices Description No Information Available Encounters Type Date Location Provider Dx Diagnosis Office Visit 12/01/2020 11:45a [facility] Umberto chen M.D. 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 Plan of Treatment Future Appointment(s):* 01/08/2021 8:15 am - EEG at [facility] * 01/09/2021 11:00 am - Ans/VS at [facility] * 2021 11:00 am - Umberto Ross M.D. at [facility] Functional Status Description No Information Available Mental Status Description No Information Available Referrals Description No Information Available
--- OUTSIDE RECORDS SUMMARY | 2021-02-14 17:41 | CCD | Continuity of Care Document ---
Author Author Jones COATES DPM Organization Unknown Address [address] [place] [address], [facility] [address] [place] [address] Phone [phone] Care Team Providers Care [place] Marshal Name Role Phone Criss MathurM [phone] Problems Active Problems Provider Date Onychomycosis Jj Coates DPM Onset: 02/14/2019 Type 1 diabetes mellitus with diabetic polyneuropathy Jj Coates DPM Onset: 02/14/2019 Social History Type Date Description Comments Sex Unknown ETOH Use Negative For Occasionally consum es beer Tobacco Use Start: Unknown End: Unknown Patient is a former smoker hx smoking 20 years 1ppd, quit 1966 Allergies, Adverse Reactions, Alerts Description No Known Drug Allergies Medications Active Medications SIG Qnty Indications Ordering Provide r Date Metanx 3-90.314-2-35mg Capsules take 1 capsule twice daily 180caps Jj Coates DPM 016 Fluorouracil 2.5GM/50ML Solution Unknown Alpha Lipoic Acid 250 Unknown Nerve Support Formula Fo R.Neuropathy Unknown Neomycin Sulfate 500mg Tablets Stephan Martinez M.D. Prochlorperazine Maleate 10mg Tablets Unknown Loperamide HCL 2mg Capsules Unknown Celebrex 200mg Capsules Alok Martinez,Tee Metronidazole 0.75% Gel Alok Martinez,Tee Fluorouracil 5GM/100ML Solution Unknown Cephalexin 500mg Capsules Luna Gibbs RPA Propylthiouracil 50mg Tablets Unknown Glipizide 5mg Tablets Alok Martinez,Roann Metformin HCL ER 500mg Tablets ER 24HR Alok Martinez,Roann Pravastatin Sodium 40mg Tablets Alok Martinez,Tee Diovan 80mg Tablets Alok Martinez,Roann Timolol Maleate Ophthalmic Gel Forming 0.5% GFS Unknown Vitamin D 13889Srkv Capsules Alok Martinez,Roann Immunizations Description No Information Available Vital Signs Date Vital Result Comment 09/14/2016 2:46pm Height 71 inches 5'11" Weight 210.00 lb BP Systolic 128 mmHg BP Diastolic 62 mmHg Heart Rate 68 /min BMI (Body Mass Index) 29.3 kg/m2 08/16/2014 9:27am Pain Level 0 Results Description No Information Available Procedures Date Code Description Status 12/19/2020 46151 Debridement 6-10 Nails Electric Completed 10/03/2020 56879 Debridement 6-10 Nails Electric Completed 07/25/2020 16571 Debridement 6-10 Nails Electric Completed Medical Devices Description No Information Available Encounters Description No Information Available Assessments Date Code Description Provider 12/19/2020 B35.1 Tinea unguium Jj Coates, SAMMY 12/19/2020 E10.42 Type 1 diabetes mellitus with di abetic polyneuropathy Jj Coates, SAMMY 10/03/2020 B35.1 Tinea unguium Jj Coates, YECENIAM 10/03/2020 E10.42 Type 1 diabetes mellitus with di abetic polyneuropathy Jj Coates DPM 07/25/2020 B35.1 Tinea unguium Jj Coates, DPM 07/25/2020 E10.42 Type 1 diabetes mellitus with di abetic polyneuropathy Jj Coates DPM Plan of Treatment Future Appointment(s):* 02/18/2021 2:45 pm - Jj Coates DPM at [place] [facility] Functional Status Description No Information Available Mental Status Description No Information Available Referrals Description No Information Available
--- OUTSIDE RECORDS SUMMARY | 2021-02-14 17:41 | CCD | Continuity of Care Document ---
Author Jones Cardoso M.D. Organization Unknown Address [address] [place] [address] Phone [phone] Care Team Providers Care Hand Expansion Envelope Maker Name Role Phone Tanika Zamora M.D. AUTM [phone] Problems Active Problems Provider Date Numbness Umberto [...] lb BMI (Body Mass Index) 28.9 kg/m2 [place] Body Weight 166 lb 03/13/2020 10:47am Respiratory Rate 12 /min Height 70.5 inches 5'10.50" Weight 204.00 lb BMI (Body Mass Index) 28.9 kg/m2 [place] Body Weight 166 lb Results Description No Information Available Procedures Description No Information Available Medical Devices Description No Information Available Encounters Description No Information Available Assessments Date Code Description Provider 12/01/2020 F01.50 Vascular dementia without behavi oral disturbance Umberto Ross M.D. Plan of Treatment No Information Available Functional Status Description No Information Available Mental Status Description No Information Available Referrals Description No Information Available
--- OUTSIDE RECORDS SUMMARY | 2021-02-14 17:41 | CCD | Continuity of Care Document ---
Author Author Jones Loving M.D. Organization Unknown Address [address] [place] [address] [address] [place] [address] Phone [phone] Care Team Providers Care Rn Gastroenterology Name Role Phone Tanika Loving MD AUTM [phone] Scott Deulca MD AUTM [phone] Adriana Ferrara SENIOR SERVICE AIDE AUTM [phone] Tavo Tesfaye MD AUTM [phone] [facility] Orthoped[facility] - Ortho AUTM Harika Burns MD AUTM [phone] Jay Kirkpatrick DO AUTM [phone] Problems Active Problems Provider Date Toxic diffuse [...] Tanika Loving M.D. 04/11/2019 Fluticasone Propionate Nasal [place] Aller gy Relief 24- Hour 50mcg/Act Suspension [...] Given 01/17/2020 Influenza,Unspecified U-Flu Given 02/20/2019 Influenza,Unspecified 85576 Given 05/16/2018 Pneumovax 23 [id number] U-Flu Given 02/28/2018 Influenza,Unspecified U-PneuC Given 02/24/2016 Prevnar 13 22660 Refused 05/16/2018 Shingrix Zoster Vaccine (HZV), Recombinant, Subunit, Adjuvanted 15164 Refused 05/16/2018 Zoster Vaccine 94644 Refused 05/16/2018 Tetanus/Diptheria(Td)Toxoids Preservative Free Vital Signs [...] H/L Range Note Laboratory test finding 02/10/2021 [facility] [address] [place] [address] [phone] Carcinoembryonic Antigen <pending> Complete Blood Count 02/10/2021 [facility] Safety Management Consultant zoe berrios [place] Tier: [place] [address] [phone] WBC 8.1 x10*3/UL 4.1 - 10.9 RBC [...] 5.3 x10*3/UL 2.0 - 7.8 A1c 02/10/2021 [facility] [place] [facility]: Dr Almas Macias [place] [id number] [phone] Hba1c 6.5 % High <5.7 1 Est Avg Glucose 140 mg/dL High 60 - 110 Laboratory test finding 02/10/2021 [facility] Plant Production Manager babs, zoe [place] Tier: [place] [address] [phone] Magnesium 1.7 mg/dL Low 1.8 - 2.4 Basic Metabolic Panel 02/10/2021 [facility] [place]: [place] [address] [phone] Glucose 143 mg/dL High 74 - 99 2 BUN 31 mg/dL High 7 - 18 Creatinine 1.9 mg/dL High 0.6 - 1.3 Sodium 141 mEq/L 136 - 145 Potassium 4.4 mEq/L 3.5 - 5.1 Chloride 103 mEq/L 98 - 107 Carbon Dioxide 32 mEq/L 21 - 32 Calcium 9.5 mg/dL 8.5 - 10.1 GFR 34 mL/min Low >60 GFR 41 mL/min Low >60 3 Laboratory test finding 02/10/2021 [facility] [employer] [facility] [place] Tier: [place] [address] [phone] Thyroid Stimulating Hormone 0.37 uIU/mL 0.3 6 - 3.74 Complete Blood Count 08/28/2020 [facility] [place] Tier: [place] [address] [phone] WBC 8.4 x10*3/UL 4.1 - 10.9 RBC [...] 5.7 x10*3/UL 2.0 - 7.8 A1c 08/28/2020 [facility] [place]: [place] [address] [phone] Hba1c 6.6 % High <5.7 4 Est Avg Glucose 143 mg/dL High 60 - 110 Laboratory test finding 08/28/2020 [facility] Production [facility] ists, pc [place] Tier: [place] [address] [phone] Magnesium 1.6 mg/dL Low 1.8 - 2.4 Comprehensive Chem Profile 08/28/2020 [facility] [place] Tier: [place] [address] [phone] Glucose 148 mg/dL High 74 - 99 5 BUN 35 mg/dL High 7 - 18 [...] Low >60 GFR 39 mL/min Low >60 6 Lipid Profile 08/28/2020 [facility] [place] Tier: Dr Almas Macias [place], [place] [id number] [phone] Cholesterol 192 mg/dL 131 - 200 Triglycerides 206 mg/dL High 30 - 150 HDL Cholesterol 54 mg/dL 35 - 60 LDL (Calculated) 97 CALC 50 - 159 Laboratory test finding 08/28/2020 [facility] Production Manager babs [place] Tier: [place] [address] [phone] Thyroid Stimulating Hormone 0.10 uIU/mL Low 0.3 6 - 3.74 Laboratory test finding 08/28/2020 [facility] Plant Production Manager babs [place] Tier: Dr Almas Macias [place], [place] [id number] [phone] T4 Free 1.34 ng/dL 0.76 - 1.46 1 Lab Result Notes: Pre-Diabetes 5.7 - 6.4 % Diabetes = or > 6.5% 2 100-125 mg/dL PRE-DIABET ES/FASTING >126 mg/dL DIABETES/FASTING 3 CHRONIC KIDNEY DISEASE STAGI NG PER NKF STAGE I & II GFR >= 60 NORMAL TO MILDLY DECREASED STAGE III GFR 30-59 MODERATELY DECREASED STAGE IV GFR 15-29 SEVERELY DECREASED STAGE V GFR <15 VERY LITTLE GFR LEFT ESRD GFR <15 ON CORPORATE GENERAL MANAGER 4 Lab Result Notes: Pre-Diabetes 5.7 - 6.4 % Diabetes = or > 6.5% 5 100-125 mg/dL PRE-DIABET ES/FASTING >126 mg/dL DIABETES/FASTING 6 CHRONIC KIDNEY DISEASE STAGI NG PER NKF STAGE I & II GFR >= 60 NORMAL TO MILDLY DECREASED STAGE III GFR 30-59 MODERATELY DECREASED STAGE IV GFR 15-29 SEVERELY DECREASED STAGE V GFR <15 VERY LITTLE GFR LEFT ESRD GFR <15 ON CORPORATE GENERAL MANAGER Procedures Date Code Description Status 01/22/2021 880366189 Diabetic Retinal Eye Exam Comple mitch 10/08/2020 48520 Office/Outpatient Established Mo d MDM 30-39 Min Completed 08/28/2020 26698 Office/Outpatient Established Mo d MDM 30-39 Min Completed 09/16/2017 [id number] Diabetic Retinal Eye Exam Comple mitch 09/06/2017 [id number] Colonoscopy Completed 11/22/2016 [id number] Diabetic Retinal Eye Exam Comple mitch 01/14/2015 90155885 Colonoscopy Completed Medical Devices Description No Information Available Encounters Type Date Location Provider Dx Diagnosis Office Visit 10/08/2020 1:30p [facility] InternGarland brice M.D. E05.00 Thyro[address]osis w diffuse goi ter [...] ied I48.0 Paroxysmal atrial fibrillati on Z79.01 [facility] (current) use of a nticoagulants Office Visit 08/28/2020 10:45a [facility] Intern[facility]land brice M.D. I48.0 Paroxysmal atrial fibrillati on Z79.01 [facility] (current) use of a nticoagulants I12.9 Hypertensive [...] atrial fibrillation Tre Loving M.D. 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 10/08/2020 E04.2 Nontoxic multinodular goiter Adam Loving M.D. 10/08/2020 J45.909 Unspecified asthma, uncomplicate d Tanika Loving M.D. 10/08/2020 K44.9 Diaphragmatic hernia without obs truction or gangrene Tanika Loving M.D. 10/08/2020 M15.9 Polyosteoarthritis, unspecified Tanika Loving M.D. 10/08/2020 I48.0 Paroxysmal atrial fibrillation Tre Loving M.D. 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 08/28/2020 I48.0 Paroxysmal atrial fibrillation Tre Loving M.D. 08/28/2020 Z79.01 [facility] (current) use of antic oagulants Tanika Loving [...] 9:30 am - [facility] 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 They have had the flu shot and the COVID vaccine, waiting for booster to be approved. Functional Status Description No Information Available Mental Status Description No Information Available Referrals Description No Information Available
--- OUTSIDE RECORDS SUMMARY | 2021-02-14 17:41 | CCD | Continuity of Care Document ---
Author Author Jones PERAZA Organization Unknown Address [address] [place] [address] Phone [phone] Care Team Providers Care Biomedical Specialist Name Role Phone Tanika Zamora M.D. AUTM [phone] Problems Active Problems Provider Date Numbness Umberto [...] lb BMI (Body Mass Index) 28.9 kg/m2 [place] Body Weight 166 lb 03/13/2020 10:47am Respiratory Rate 12 /min Height 70.5 inches 5'10.50" Weight 204.00 lb BMI (Body Mass Index) 28.9 kg/m2 [place] Body Weight 166 lb Results Description No Information Available Procedures Date Code Description Status 01/09/2021 65274 Sympathetic Skin Responses Compl eted 01/09/2021 64879 Test Autonomic Nervous System, C ardiovagal Innervation Completed 01/09/2021 09125 Artery Study Extremity Mult Leve ls Bilateral Completed 01/08/2021 71294 EEG Recording Awake & Asleep Com pleted 01/08/2021 39977 EEG Recording Awake & Asleep Com pleted 12/01/2020 60550 Office/Outpatient Established Mo d MDM 30-39 Min Completed 12/01/2020 3288F Fall Risk Assessment Documented Completed Medical Devices Description No Information Available Encounters Type Date Location Provider Dx Diagnosis Office Visit 12/01/2020 11:45a [facility] Umberto chen M.D. 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 01/08/2021 R41.82 Altered mental status, unspecifi ed EEG 12/01/2020 F01.50 Vascular dementia without behavi oral disturbance Umberto Ross M.D. Plan of Treatment Future Appointment(s):* 2021 11:00 am - Umberto Ross M.D. at [facility] Functional Status Description No Information Available Mental Status Description No Information Available Referrals Description No Information Available
--- OUTSIDE RECORDS SUMMARY | 2021-02-14 17:41 | CCD | Continuity of Care Document ---
Author Author Jones PERAZA Organization Unknown Address [address] [place] [address] Phone [phone] Care Team Providers Care Cashier Ticket Selling Name Role Phone Tanika Zamora M.D. AUTM [phone] Problems Active Problems Provider Date Numbness Umberto [...] lb BMI (Body Mass Index) 28.9 kg/m2 [place] Body Weight 166 lb 03/13/2020 10:47am Respiratory Rate 12 /min Height 70.5 inches 5'10.50" Weight 204.00 lb BMI (Body Mass Index) 28.9 kg/m2 [place] Body Weight 166 lb Results Description No Information Available Procedures Date Code Description Status 12/01/2020 70095 Office/Outpatient Established Mo d MDM 30-39 Min Completed 12/01/2020 3288F Fall Risk Assessment Documented Completed Medical Devices Description No Information Available Encounters Type Date Location Provider Dx Diagnosis Office Visit 12/01/2020 11:45a [facility] Umberto chen M.D. 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 Plan of Treatment Future Appointment(s):* 01/09/2021 11:00 am - Ans/VS at [facility] * 2021 11:00 am - Umberto Ross M.D. at [facility] Functional Status Description No Information Available Mental Status Description No Information Available Referrals Description No Information Available
--- OUTSIDE RECORDS SUMMARY | 2021-02-14 17:41 | CCD | Continuity of Care Document ---
Author Author Jones Loving M.D. Organization Unknown Address [address] [place] [address] [address] [place] [address] Phone [phone] Care Team Providers Care Welfare Case Worker Name Role Phone Tanika Loving MD AUTM [phone] Scott Deluca MD AUTM [phone] Adriana Ferrara FAIRING WORKER AUTM [phone] Tavo Tesfaye MD AUTM [phone] [facility] Orthopedi - Ortho AUTM Harika Burns MD AUTM [phone] Jay Kirkpatrick DO AUTM [phone] Problems Active Problems Provider Date Toxic diffuse [...] Tanika Loving M.D. 04/11/2019 Fluticasone Propionate Nasal [place] Aller gy Relief 24- Hour 50mcg/Act Suspension [...] Given 01/17/2020 Influenza,Unspecified U-Flu Given 02/20/2019 Influenza,Unspecified 04299 Given 05/16/2018 Pneumovax 23 [id number] U-Flu Given 02/28/2018 Influenza,Unspecified U-PneuC Given 02/24/2016 Prevnar 13 97550 Refused 05/16/2018 Shingrix Zoster Vaccine (HZV), Recombinant, Subunit, Adjuvanted 27636 Refused 05/16/2018 Zoster Vaccine 26140 Refused 05/16/2018 Tetanus/Diptheria(Td)Toxoids Preservative Free Vital Signs [...] H/L Range Note Laboratory test finding 02/10/2021 [facility] [address] [place] [address] [phone] Carcinoembryonic Antigen <pending> Laboratory test finding 02/10/2021 [facility] [employer] Kitchen Supervisor zoe brice Drive In Teller: [place] [address] [phone] A1c <pending> Magnesium, Serum <pending> Laboratory test finding 02/10/2021 [facility] [employer] Kitchen Supervisor zoe brice Drive In Teller: [place] [address] [phone] TSH <pending> Complete Blood Count 08/28/2020 [facility], pc Drive In Teller: [place] Almas [place] [address] [phone] WBC 8.4 x10*3/UL 4.1 - 10.9 RBC [...] 5.7 x10*3/UL 2.0 - 7.8 A1c 08/28/2020 [facility] Drive In Teller: [place] [address] [phone] Hba1c 6.6 % High <5.7 1 Est Avg Glucose 143 mg/dL High 60 - 110 Laboratory test finding 08/28/2020 [facility] [employer] Kitchen Supervisor [facility], pc Drive In Teller: Dr Almas [place] [address] [phone] Magnesium 1.6 mg/dL Low 1.8 - 2.4 Comprehensive Chem Profile 08/28/2020 [facility], Drive In Teller: [place] [address] [phone] Glucose 148 mg/dL High 74 - 99 2 BUN 35 mg/dL High 7 - 18 [...] Low >60 GFR 39 mL/min Low >60 3 Lipid Profile 08/28/2020 [facility] , Drive In Teller: Dr Almas Macias [place], [place] [id number] [phone] Cholesterol 192 mg/dL 131 - 200 Triglycerides 206 mg/dL High 30 - 150 HDL Cholesterol 54 mg/dL 35 - 60 LDL (Calculated) 97 CALC 50 - 159 Laboratory test finding 08/28/2020 [place] [employer] Kitchen Supervisor babs Drive In Teller: Dr Almas [place] [address] [phone] Thyroid Stimulating Hormone 0.10 uIU/mL Low 0.3 6 - 3.74 Laboratory test finding 08/28/2020 [place] Ban[employer] Kitchen Supervisor babs Drive In Teller: Dr [place]mas [place] [address] [phone] T4 Free 1.34 ng/dL 0.76 - 1.46 [...] LITTLE GFR LEFT ESRD GFR <15 ON SCIENTIST ENGINEER Procedures Date Code Description Status 01/22/2021 [id number] Diabetic Retinal Eye Exam Comple mitch 10/08/2020 58968 Office/Outpatient Established Mo d MDM 30-39 Min Completed 08/28/2020 02630 Office/Outpatient Established Mo d MDM 30-39 Min Completed 09/16/2017 [id number] Diabetic Retinal Eye Exam Comple mitch 09/06/2017 38819083 Colonoscopy Completed 11/22/2016 348711893 Diabetic Retinal Eye Exam Comple mitch 01/14/2015 56232116 Colonoscopy Completed Medical Devices Description No Information Available Encounters Type Date Location Provider Dx Diagnosis Office Visit 10/08/2020 1:30p [facility] Intern[facility] brice M.D. 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 I48.0 Paroxysmal atrial fibrillati on Z79.01 longterm (current) use of a nticoagulants I12.9 Hypertensive [...] hernia without obs truction or gangrene Tanika Lovnig M.D. 02/10/2021 M19.90 Unspecified osteoarthritis, unsp ecified site Tanika Loving M.D. 02/10/2021 I48.0 Paroxysmal atrial fibrillation Tre Loving M.D. 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 10/08/2020 F02.80 Dementia in other di seases classified elsewhere without behavioral disturbance Tainka Loving M.D. 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 08/28/2020 I48.0 Paroxysmal atrial fibrillation Tre Loving M.D. 08/28/2020 Z79.01 longterm (current) use of antic oagulants Tanika Loving [...] goiter Adam Loving M.D. Plan of Treatment No Information Available Functional Status Description No Information Available Mental Status Description No Information Available Referrals Description No Information Available
--- OUTSIDE RECORDS SUMMARY | 2021-02-14 17:41 | CCD | Continuity of Care Document ---
Author Author Jones COATES DPM Organization Unknown Address [address] [place] [address], [facility] [address] [place] [address] Phone [phone] Care Team Providers Care Fisheries Technical Officer Name Role Phone Criss MathurM [phone] Problems Active Problems Provider Date Onychomycosis Jj [...] 50mg Tablets Unknown Glipizide 5mg Tablets Alok Martinez,[place] Metformin HCL ER 500mg Tablets ER 24HR Alok Martinez,[place] Pravastatin Sodium 40mg Tablets Alok [place] Diovan 80mg Tablets Alok Martinez,[place] Timolol Maleate Ophthalmic Gel Forming 0.5% GFS Unknown Vitamin D 73194Eqft Capsules Alok Martinez,[place] Immunizations Description No Information Available Vital Signs Date Vital Result Comment 09/14/2016 2:46pm Height 71 inches 5'11" Weight 210.00 lb BP Systolic 128 mmHg BP Diastolic 62 mmHg Heart Rate 68 /min BMI (Body Mass Index) 29.3 kg/m2 08/16/2014 9:27am Pain Level 0 Results Description No Information Available Procedures Date Code Description Status 10/03/2020 73825 Debridement 6-10 Nails Electric Completed 07/25/2020 42797 Debridement 6-10 Nails Electric Completed Medical Devices Description No Information Available Encounters Description No Information Available Assessments Date Code Description Provider 10/03/2020 B35.1 Tinea unguium Jj Coates DPM 10/03/2020 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
--- OUTSIDE RECORDS SUMMARY | 2021-02-14 17:41 | CCD | Continuity of Care Document ---
Author Author Jones Loving M.D. Organization Unknown Address [address] [place] [address] [address] [place] [address] Phone [phone] Care Team Providers Care Aeronautical Inspector Name Role Phone Tanika Loving MD AUTM [phone] Scott Deluca MD AUTM [phone] Adriana Ferrara TIRE WRAPPER AUTM [phone] Tavo Tesfaye MD AUTM [phone] [facility] - Ortho AUTM [phone] Harika Burns MD AUTM [phone] Jay Kirkpatrick DO AUTM [phone] Problems Active Problems Provider Date Toxic diffuse [...] Tanika Loving M.D. 04/11/2019 Fluticasone Propionate Nasal [place] [facility] 24- Hour 50mcg/Act Suspension [...] Given 01/17/2020 Influenza,Unspecified U-Flu Given 02/20/2019 Influenza,Unspecified [id number] Given 05/16/2018 Pneumovax 23 [id number] U-Flu Given 02/28/2018 Influenza,Unspecified U-PneuC Given 02/24/2016 Prevnar 13 [id number] Refused 05/16/2018 Shingrix Zoster Vaccine (HZV), Recombinant, Subunit, Adjuvanted [id number] Refused 05/16/2018 Zoster Vaccine [id number] Refused 05/16/2018 Tetanus/Diptheria(Td)Toxoids Preservative Free Vital Signs [...] H/L Range Note Laboratory test finding 02/10/2021 [facility] [address] [place] [address] [phone] Carcinoembryonic Antigen 2.5 NG/ML Normal <2.5 1 Complete Blood Count 02/10/2021 [facility] Transcribing Operators Supervisor: [place] [address] [phone] WBC 8.1 x10*3/UL 4.1 - 10.9 RBC [...] 5.3 x10*3/UL 2.0 - 7.8 A1c 02/10/2021 [facility] Trans[facility] Operators Supervisor: Dr Almas Macias [place], [place] [id number] [phone] Hba1c 6.5 % High <5.7 2 Est Avg Glucose 140 mg/dL High 60 - 110 Laboratory test finding 02/10/2021 [facility] Trans[facility] Operators Supervisor: Dr Almas Macias [place], [place] [id number] [phone] Magnesium 1.7 mg/dL Low 1.8 - 2.4 Basic Metabolic Panel 02/10/2021 [facility] Trans[facility] Operators Supervisor: Dr Almas Macias [place], [place] [id number] [phone] Glucose 143 mg/dL High 74 - 99 [...] Low >60 4 Laboratory test finding 02/10/2021 [facility] Trans[facility] Operators Supervisor: Dr Coburn [place] [id number] [phone] Thyroid Stimulating Hormone 0.37 uIU/mL 0.3 6 - 3.74 Complete Blood Count 08/28/2020 [facility] Trans[facility] Operators Supervisor: Dr Almas Macias [place], [place] [id number] [phone] WBC 8.4 x10*3/UL 4.1 - 10.9 RBC [...] 5.7 x10*3/UL 2.0 - 7.8 A1c 08/28/2020 [facility] Transcribing Operators Supervisor: Dr Almas Macias [place] [id number] [phone] Hba1c 6.6 % High <5.7 5 Est Avg Glucose 143 mg/dL High 60 - 110 Laboratory test finding 08/28/2020 [facility] Transcribing Operators Supervisor: [place] [address] [phone] Magnesium 1.6 mg/dL Low 1.8 - 2.4 Comprehensive Chem Profile 08/28/2020 [facility] Trans[facility] Operators Supervisor: [place] [address] [phone] Glucose 148 mg/dL High 74 - 99 [...] mL/min Low >60 7 Lipid Profile 08/28/2020 [facility] Trans[facility] Operators Supervisor: [place] [address] [phone] Cholesterol 192 mg/dL 131 - 200 Triglycerides 206 mg/dL High 30 - 150 HDL Cholesterol 54 mg/dL 35 - 60 LDL (Calculated) 97 CALC 50 - 159 Laboratory test finding 08/28/2020 [facility] Transcribing Operators Supervisor: [place] [address] [phone] Thyroid Stimulating Hormone 0.10 uIU/mL Low 0.3 6 - 3.74 Laboratory test finding 08/28/2020 [facility] Trans[facility] Operators Supervisor: [place] [address] [phone] T4 Free 1.34 ng/dL 0.76 - 1.46 1 THE CEA ASSAY IS PERFORMED O N THE [employer] GROUPAUR BY CHEMILUMINESCENCE AND SHOULD NOT BE COMPARED [...] LITTLE GFR LEFT ESRD GFR <15 ON CLINICAL APPEALS SPECIALIST 5 Lab Result Notes: Pre-Diabetes 5.7 - [...] LITTLE GFR LEFT ESRD GFR <15 ON CLINICAL APPEALS SPECIALIST Procedures Date Code Description Status 02/10/2021 53765 Office/Outpatient Established Mo d MDM 30-39 Min Completed 01/22/2021 [id number] Diabetic Retinal Eye Exam Comple [facility] 10/08/2020 44306 Office/Outpatient Established Mo d MDM 30-39 Min Completed 08/28/2020 23144 Office/Outpatient Established Mo d MDM 30-39 Min Completed 09/16/2017 [id number] Diabetic Retinal Eye Exam Comple [facility] 09/06/2017 [id number] Colonoscopy Completed 11/22/2016 [id number] Diabetic Retinal Eye Exam Comple [facility] 01/14/2015 [id number] Colonoscopy Completed Medical Devices Description No Information Available Encounters Type Date Location Provider Dx Diagnosis Office Visit 02/10/2021 9:30a [facility] Adam Loving M.D. 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 E05.00 Thyrotoxicosis w diffuse [...] ied I48.0 Paroxysmal atrial fibrillati on Z79.01 half-way (current) use of a nticoagulants Office Visit 08/28/2020 10:45a [facility] I48.0 Paroxysmal atrial fibrillati on Z79.01 adjunct faculty for medical terminology (current) use of a nticoagulants I12.9 Hypertensive [...] asthma, uncomplicate d Tanika Loving M.D. 02/10/2021 F03.90 Unspecified dementia without beh avioral disturbance Tanika Loving M.D. 02/10/2021 K44.9 Diaphragmatic hernia without obs truction or gangrene Tanika Loving M.D. 02/10/2021 M19.90 Unspecified osteoarthritis, unsp ecified site Tanika Loving M.D. 02/10/2021 I48.0 Paroxysmal atrial fibrillation J riaz Loving M.D. 02/10/2021 Z79.01 half-way (current) use of antic oagulants Tanika Loving [...] atrial fibrillation Tre Loving M.D. 10/08/2020 Z79.01 half-way (current) use of antic oagulants Tanika Loving M.D. 08/28/2020 I48.0 Paroxysmal atrial fibrillation Tre Loving M.D. 08/28/2020 Z79.01 half-way (current) use of antic oagulants Tanika Loving M.D. 08/28/2020 I12.9 Hypertensive chronic kidney disease with stage 1 through stage 4 chronic kidney disease, or unspecified chronic kidney disease Tanika Loving M.D. 08/28/2020 N18.30 Chronic kidney disease, stage 3 augustoified Tanika Loving M.D. 08/28/2020 E11.22 Type 2 diabetes mellitus with di abetic chronic kidney disease Tanika Loving M.D. 08/28/2020 G62.9 Polyneuropathy, unspecified Celi Loving M.D. 08/28/2020 E78.00 Pure hypercholesterolemia, unspe cified Tanika Loving M.D. 08/28/2020 R19.7 Diarrhea, unspecified Tanika peña M.D. 08/28/2020 E04.2 Nontoxic multinodular goiter Adam Loving M.D. Plan of Treatment Future Appointment(s):* 05/14/2021 9:30 am - [facility] 02/10/2021 - Tanika Loving M.D.* E05.00 Thyrotoxicosis [...] goiter * J45.909 Unspecified asthma, uncomplicated * F03.90 Unspecified dementia without behavioral disturbance * K44.9 Diaphragmatic hernia without obstruction or gangrene * M19.90 Unspecified osteoarthritis, unspecified site * I48.0 Paroxysmal atrial fibrillation * Z79.01 adjunct faculty for medical terminology (current) use of anticoagulants * All * Comments:* Health Maintenance. They have had the flu shot and the COVID vaccine, waiting for booster to be approved. Functional Status Description No Information Available Mental Status Description No Information Available Referrals Description No Information Available
--- OUTSIDE RECORDS SUMMARY | 2021-02-14 17:43 | CCD ---
Author Author [facility] Organization [facility] Address Unknown Phone Unavailable Care Team Providers Care Range Feeder Name Role Phone LePine, M Adriana WOODENWARE ASSEMBLER Unavailable Unavailable LePine, M Adriana WOODENWARE ASSEMBLER Unavailable Unavailable LePine, M Adriana WOODENWARE ASSEMBLER Unavailable Unavailable LePine, M Adriana WOODENWARE ASSEMBLER Unavailable Unavailable LePine, M Adriana WOODENWARE ASSEMBLER Unavailable Unavailable LePine, M Adriana WOODENWARE ASSEMBLER Unavailable Unavailable LePine, M Adriana WOODENWARE ASSEMBLER Unavailable Unavailable LePine, M Adriana WOODENWARE ASSEMBLER Unavailable Unavailable LePine, M Adriana WOODENWARE ASSEMBLER Unavailable Unavailable LePine, M Adriana WOODENWARE ASSEMBLER Unavailable Unavailable LePine, M Adriana WOODENWARE ASSEMBLER Unavailable Unavailable LePine, M Adriana WOODENWARE ASSEMBLER Unavailable Unavailable LePine, M Adriana WOODENWARE ASSEMBLER Unavailable Unavailable LePine, M Adriana WOODENWARE ASSEMBLER Unavailable Unavailable LePine, M Adriana WOODENWARE ASSEMBLER Unavailable Unavailable LePine, M Adriana WOODENWARE ASSEMBLER Unavailable Unavailable LePine, M Adriana WOODENWARE ASSEMBLER Unavailable Unavailable LePine, M Adriana WOODENWARE ASSEMBLER Unavailable Unavailable LePine, M Adriana WOODENWARE ASSEMBLER Unavailable Unavailable LePine, M Adriana WOODENWARE ASSEMBLER Unavailable Unavailable LePine, M Adriana WOODENWARE ASSEMBLER Unavailable Unavailable LePine, M Adriana WOODENWARE ASSEMBLER Unavailable Unavailable LePine, M Adriana WOODENWARE ASSEMBLER Unavailable Unavailable LePine, M Adriana WOODENWARE ASSEMBLER Unavailable Unavailable LePine, M Adriana WOODENWARE ASSEMBLER Unavailable Unavailable LePine, M Adriana WOODENWARE ASSEMBLER Unavailable Unavailable LePine, M Adriana WOODENWARE ASSEMBLER Unavailable Unavailable LePine, M Adriana WOODENWARE ASSEMBLER Unavailable Unavailable LePine, M Adriana WOODENWARE ASSEMBLER Unavailable Unavailable LePine, M Adriana WOODENWARE ASSEMBLER Unavailable Unavailable LePine, M Adriana WOODENWARE ASSEMBLER Unavailable Unavailable LePine, M Adriana WOODENWARE ASSEMBLER Unavailable Unavailable LePine, M Adriana WOODENWARE ASSEMBLER Unavailable Unavailable LePine, M Adriana WOODENWARE ASSEMBLER Unavailable Unavailable LePine, M Adriana WOODENWARE ASSEMBLER Unavailable Unavailable LePine, M Adriana WOODENWARE ASSEMBLER Unavailable Unavailable LePine, M Adriana WOODENWARE ASSEMBLER Unavailable Unavailable LePine, M Adriana WOODENWARE ASSEMBLER Unavailable Unavailable LePine, M Adriana WOODENWARE ASSEMBLER Unavailable Unavailable LePine, M Adriana WOODENWARE ASSEMBLER Unavailable Unavailable LePine, M Adriana WOODENWARE ASSEMBLER Unavailable Unavailable LePine, M Adriana WOODENWARE ASSEMBLER Unavailable Unavailable LePine, M Adriana WOODENWARE ASSEMBLER Unavailable Unavailable LePine, M Adriana WOODENWARE ASSEMBLER Unavailable Unavailable LePine, M Adriana WOODENWARE ASSEMBLER Unavailable Unavailable LePine, M Adriana WOODENWARE ASSEMBLER Unavailable Unavailable LePine, M Adriana WOODENWARE ASSEMBLER Unavailable Unavailable LePine, M Adriana WOODENWARE ASSEMBLER Unavailable Unavailable LePine, M Adriana WOODENWARE ASSEMBLER Unavailable Unavailable LePine, M Adriana WOODENWARE ASSEMBLER Unavailable Unavailable LePine, M Adriana WOODENWARE ASSEMBLER Unavailable Unavailable LePine, M Adriana WOODENWARE ASSEMBLER Unavailable Unavailable LePine, M Adriana WOODENWARE ASSEMBLER Unavailable Unavailable LePine, M Adriana WOODENWARE ASSEMBLER Unavailable Unavailable LePine, M Adriana WOODENWARE ASSEMBLER Unavailable Unavailable LePine, M Adriana WOODENWARE ASSEMBLER Unavailable Unavailable Charlebois, A Naya RPA C Unavailable Unavailable Charlebois, A Naya RPA C Unavailable Unavailable Charlebois, A Naya RPA C Unavailable Unavailable Charlebois, A Naya RPA C Unavailable Unavailable Charlebois, A Naya RPA C Unavailable Unavailable Charlebois, A Naya RPA C Unavailable Unavailable Charlebois, A Naya RPA C Unavailable Unavailable Charlebois, A Naya RPA C Unavailable Unavailable Charlebois, A Naya RPA C Unavailable Unavailable Charlebois, A Naya RPA C Unavailable Unavailable Charlebois, A Naya RPA C Unavailable Unavailable Charlebois, A Naya RPA C Unavailable Unavailable Charlebois, A Naya RPA C Unavailable Unavailable Charlebois, A Naya RPA C Unavailable Unavailable Charlebois, A Naya RPA C Unavailable Unavailable Charlebois, A Naya RPA C Unavailable Unavailable Charlebois, A Naya RPA C Unavailable Unavailable Charlebois, A Naya RPA C Unavailable Unavailable Charlebois, A Naya RPA C Unavailable Unavailable Charlebois, A Naya RPA C Unavailable Unavailable Charlebois, A Naya RPA C Unavailable Unavailable Charlebois, A Naya RPA C Unavailable Unavailable Charlebois, A Naya RPA C Unavailable Unavailable Charlebois, A Naya RPA C Unavailable Unavailable Charlebois, A Naya RPA C Unavailable Unavailable Charlebois, A Naya RPA C Unavailable Unavailable Charlebois, A Naya RPA C Unavailable Unavailable Charlebois, A Naya RPA C Unavailable Unavailable Charlebois, A Naya RPA C Unavailable Unavailable Charlebois, A Naya RPA C Unavailable Unavailable Charlebois, A Naya RPA C Unavailable Unavailable Charlebois, A Naya RPA C Unavailable Unavailable Charlebois, A Naya RPA C Unavailable Unavailable MCELHERAN, NORA PA Unavailable Unavailable MCELHERAN, NORA PA Unavailable Unavailable MCELHERAN, NORA PA Unavailable Unavailable MCELHERAN, NORA PA Unavailable Unavailable MCELHERAN, NORA PA Unavailable Unavailable MCELHERAN, NORA PA Unavailable Unavailable MCELHERAN, NORA PA Unavailable Unavailable MCELHERAN, NORA PA Unavailable Unavailable MCELHERAN, NORA PA Unavailable Unavailable MCELHERAN, NORA PA Unavailable Unavailable MCELHERAN, NORA PA Unavailable Unavailable MCELHERAN, NORA PA Unavailable Unavailable MCELHERAN, NORA PA Unavailable Unavailable MCELHERAN, NORA PA Unavailable Unavailable MCELHERAN, NORA PA Unavailable Unavailable MCELHERAN, NORA PA Unavailable Unavailable MCELHERAN, NORA PA Unavailable Unavailable MCELHERAN, NORA PA Unavailable Unavailable MCELHERAN, NORA PA Unavailable Unavailable MCELHERAN, NORA PA Unavailable Unavailable MCELHERAN, NORA PA Unavailable Unavailable MCELHERAN, NORA PA Unavailable Unavailable MCELHERAN, NORA PA Unavailable Unavailable MCELHERAN, NORA PA Unavailable Unavailable MCELHERAN, NORA PA Unavailable Unavailable MCELHERAN, NORA PA Unavailable Unavailable MCELHERAN, NORA PA Unavailable Unavailable MCELHERAN, NORA PA Unavailable Unavailable MCELHERAN, NORA PA Unavailable Unavailable Yara Loving MD Unavailable Unavailable Yara Loving MD Unavailable Unavailable Yara Loving MD Unavailable Unavailable Yara Loving MD Unavailable Unavailable Yara Loving MD Unavailable Unavailable Yara Loving MD Unavailable Unavailable Yara Loving MD Unavailable Unavailable Yara Loving MD Unavailable Unavailable Yara Loving MD Unavailable Unavailable Yara Loving MD Unavailable Unavailable Yara Loving MD Unavailable Unavailable Yara Loving MD Unavailable Unavailable Yara Loving MD Unavailable Unavailable Yara Loving MD Unavailable Unavailable Yara Loving MD Unavailable Unavailable Yara Loving MD Unavailable Unavailable Yara Loving MD Unavailable Unavailable Yara Loving MD Unavailable Unavailable FabienneYara galvan MD Unavailable Unavailable FabienneYara MD Unavailable Unavailable FabienneYara galvan MD Unavailable Unavailable FabienneYara MD Unavailable Unavailable FabienneYara MD Unavailable Unavailable FabienneYara MD Unavailable Unavailable FabienneYara MD Unavailable Unavailable Yara Loving MD Unavailable Unavailable FabienneYara MD Unavailable Unavailable FabienneYara MD Unavailable Unavailable FabienneYara MD Unavailable Unavailable FabienneYara MD Unavailable Unavailable FabienneYara MD Unavailable Unavailable FabienneYara MD Unavailable Unavailable FabienneYara MD Unavailable Unavailable FabienneYara MD Unavailable Unavailable FabienneYara MD Unavailable Unavailable FabienneYara menard MD Unavailable Unavailable FabienneYara galvan MD Unavailable Unavailable Yara Loving MD Unavailable Unavailable Yara Loving MD Unavailable Unavailable Yara Loving MD Unavailable Unavailable Yara Loving MD Unavailable Unavailable Yara Loving MD Unavailable Unavailable Yara Loving MD Unavailable Unavailable Yara Loving MD Unavailable Unavailable Yara Loving MD Unavailable Unavailable Yara Loving MD Unavailable Unavailable Yara Loving MD Unavailable Unavailable Yara Loving MD Unavailable Unavailable Yara Loving MD Unavailable Unavailable Yara Loving MD Unavailable Unavailable Yara Loving MD Unavailable Unavailable Yara Loving MD Unavailable Unavailable Yara Loving MD Unavailable Unavailable Yara Loving MD Unavailable Unavailable Yara Loving MD Unavailable Unavailable Yara Loving MD Unavailable Unavailable Yara Loving MD Unavailable Unavailable Yara Loving MD Unavailable Unavailable Yara Loving MD Unavailable Unavailable Yara Loving MD Unavailable Unavailable Yara Loving MD Unavailable Unavailable Yara Loving MD Unavailable Unavailable Yara Loving MD Unavailable Unavailable Yara Loving MD Unavailable Unavailable Yara Loving MD Unavailable Unavailable Yara Loving MD Unavailable Unavailable FabienneYara MD Unavailable Unavailable Yara Loving MD Unavailable Unavailable Fabienne, Yara Sagastume MD Unavailable Unavailable Fabienne, Yara Sagastume MD Unavailable Unavailable Fabienne, Yara Sagastume MD Unavailable Unavailable Fabienne, Yara Sagastume MD Unavailable Unavailable Fabienne, Yara Sagastume MD Unavailable Unavailable Fabienne, Yara Sagastume MD Unavailable Unavailable Fabienne, Yara Sagastume MD Unavailable Unavailable Fabienne, Yara Sagastume MD Unavailable Unavailable Fabienne, Yara Sagastume MD Unavailable Unavailable Fabienne, Yara Sagastume MD Unavailable Unavailable Fabienne, Yara Sagastume MD Unavailable Unavailable Fabienne, Yara Sagastume MD Unavailable Unavailable Fabienne, Yara Sagastume MD Unavailable Unavailable Fabienne, Yara Sagastume MD Unavailable Unavailable Fabienne, Yara Sagastume MD Unavailable Unavailable Fabienne, Yara Sagastume MD Unavailable Unavailable SEARS, A MERE DO Unavailable Unavailable SEARS, A MERE DO Unavailable Unavailable SEARS, A MERE DO Unavailable Unavailable SEARS, A MERE DO Unavailable Unavailable SEARS, A MERE DO Unavailable Unavailable SEARS, A MERE DO Unavailable Unavailable SEARS, A MERE DO Unavailable Unavailable SEARS, A MERE DO Unavailable Unavailable SEARS, A MERE DO Unavailable Unavailable SEARS, A MERE DO Unavailable Unavailable SEARS, A MERE DO Unavailable Unavailable SEARS, A MERE DO Unavailable Unavailable SEARS, A MERE DO Unavailable Unavailable SEARS, A MERE DO Unavailable Unavailable SEARS, A MERE DO Unavailable Unavailable SEARS, A MERE DO Unavailable Unavailable SEARS, A MERE DO Unavailable Unavailable SEARS, A MERE DO Unavailable Unavailable SEARS, A MERE DO Unavailable Unavailable SEARS, A MERE DO Unavailable Unavailable SEARS, A MERE DO Unavailable Unavailable SEARS, A MERE DO Unavailable Unavailable SEARS, A MERE DO Unavailable Unavailable SEARS, A MERE DO Unavailable Unavailable SEARS, A MERE DO Unavailable Unavailable SEARS, A MERE DO Unavailable Unavailable SEARS, A MERE DO Unavailable Unavailable SEARS, A MERE DO Unavailable Unavailable SEARS, A MERE DO Unavailable Unavailable SEARS, A MERE DO Unavailable Unavailable SEARS, A MERE DO Unavailable Unavailable SEARS, A MERE DO Unavailable Unavailable SEARS, A MERE DO Unavailable Unavailable SEARS, A MERE DO Unavailable Unavailable SEARS, A MERE DO Unavailable Unavailable SEARS, A MERE DO Unavailable Unavailable SEARS, A MERE DO Unavailable Unavailable SEARS, A MERE DO Unavailable Unavailable SEARS, A MERE DO Unavailable Unavailable SEARS, A MERE DO Unavailable Unavailable SEARS, A MERE DO Unavailable Unavailable SEARS, A MERE DO Unavailable Unavailable SEARS, A MERE DO Unavailable Unavailable SEARS, A MERE DO Unavailable Unavailable SEARS, A MERE DO Unavailable Unavailable SEARS, A MERE DO Unavailable Unavailable SEARS, A MERE DO Unavailable Unavailable SEARS, A MERE DO Unavailable Unavailable Drummond, Deepika MD ALLERGY IMMUNOLOGY Unavailable Unavailable Drummond, Deepika MD ALLERGY IMMUNOLOGY Unavailable Unavailable Drummond, Deepika MD ALLERGY IMMUNOLOGY Unavailable Unavailable Drummond, Deepika MD ALLERGY IMMUNOLOGY Unavailable Unavailable Drummond, Deepika MD ALLERGY IMMUNOLOGY Unavailable Unavailable Drummond, Deepika MD ALLERGY IMMUNOLOGY Unavailable Unavailable Drummond, Deepiak MD ALLERGY IMMUNOLOGY Unavailable Unavailable Drummond, Deepika MD ALLERGY IMMUNOLOGY Unavailable Unavailable Drummond, Deepika MD ALLERGY IMMUNOLOGY Unavailable Unavailable Drummond, Deepika MD ALLERGY IMMUNOLOGY Unavailable Unavailable Drummond, Deepika MD ALLERGY IMMUNOLOGY Unavailable Unavailable Drummond, Deepika MD ALLERGY IMMUNOLOGY Unavailable Unavailable Drummond, Deepika MD ALLERGY IMMUNOLOGY Unavailable Unavailable Drummond, Deepika MD ALLERGY IMMUNOLOGY Unavailable Unavailable Drummond, Deepika MD ALLERGY IMMUNOLOGY Unavailable Unavailable Drummond, Deepika MD ALLERGY IMMUNOLOGY Unavailable Unavailable Drummond, Deepika MD ALLERGY IMMUNOLOGY Unavailable Unavailable Drummond, Deepika MD ALLERGY IMMUNOLOGY Unavailable Unavailable Drummond, Deepika MD ALLERGY IMMUNOLOGY Unavailable Unavailable Drummond, Deepika MD ALLERGY IMMUNOLOGY Unavailable Unavailable Drummond, Deepika MD ALLERGY IMMUNOLOGY Unavailable Unavailable Drummond, Deepika MD ALLERGY IMMUNOLOGY Unavailable Unavailable Drummond, Deepika MD ALLERGY IMMUNOLOGY Unavailable Unavailable Drummond, Deepika MD ALLERGY IMMUNOLOGY Unavailable Unavailable Drummond, Deepika MD ALLERGY IMMUNOLOGY Unavailable Unavailable Drummond, Deepika MD ALLERGY IMMUNOLOGY Unavailable Unavailable Drummond, Deepika MD ALLERGY IMMUNOLOGY Unavailable Unavailable Drummond, Deepika MD ALLERGY IMMUNOLOGY Unavailable Unavailable Drummond, Deepika MD ALLERGY IMMUNOLOGY Unavailable Unavailable Drummond, Deepika MD ALLERGY IMMUNOLOGY Unavailable Unavailable Drummond, Deepika MD ALLERGY IMMUNOLOGY Unavailable Unavailable Drummond, Deepika MD ALLERGY IMMUNOLOGY Unavailable Unavailable Drummond, Deepika MD ALLERGY IMMUNOLOGY Unavailable Unavailable Drummond, Deepika MD ALLERGY IMMUNOLOGY Unavailable Unavailable Drummond, Deepika MD ALLERGY IMMUNOLOGY Unavailable Unavailable Drummond, Deepika MD ALLERGY IMMUNOLOGY Unavailable Unavailable Fish, Tessy Crump MD Unavailable Unavailable Fish, Tessy Crump MD Unavailable Unavailable Fish, Tessy Crump MD Unavailable Unavailable Fish, Tessy Crump MD Unavailable Unavailable Fish, Tessy Crump MD Unavailable Unavailable Fish, Tessy Crump MD Unavailable Unavailable Fish, Tessy Crump MD Unavailable Unavailable Fish, Tessy Crump MD Unavailable Unavailable Fish, Tessy Crump MD Unavailable Unavailable Fish, Tessy Crump MD Unavailable Unavailable Fish, Tessy Crump MD Unavailable Unavailable Fish, Tessy Crump MD Unavailable Unavailable Fish, Tessy Crump MD Unavailable Unavailable Fish, Tessy Crump MD Unavailable Unavailable Fish, Tessy Crump MD Unavailable Unavailable Fish, Tessy Crump MD Unavailable Unavailable Fish, Tessy Crump MD Unavailable Unavailable Fish, Tessy Crump MD Unavailable Unavailable Fish, Tessy Crump MD Unavailable Unavailable Fish, Tessy Crump MD Unavailable Unavailable Fish, Tessy Crump MD Unavailable Unavailable Fish, Tessy Crump MD Unavailable Unavailable Fish, Tessy Crump MD Unavailable Unavailable FishTessy MD Unavailable Unavailable FishTessy MD Unavailable Unavailable FishTessy MD Unavailable Unavailable FishTessy MD Unavailable Unavailable Fish, Tessy Crump MD Unavailable Unavailable Fish, Tessy Crump MD Unavailable Unavailable Fish, Tessy Crump MD Unavailable Unavailable Fish, Tessy Crump MD Unavailable Unavailable Fish, Tessy Crump MD Unavailable Unavailable Fish, Tessy Crump MD Unavailable Unavailable Fish, Tessy Crump MD Unavailable Unavailable Fish, Tessy Crump MD Unavailable Unavailable Fish, Tessy Crump MD Unavailable Unavailable Fish, Tessy Crump MD Unavailable Unavailable Fish, Tessy Crump MD Unavailable Unavailable Fish, Tessy Crump MD Unavailable Unavailable FishTessy MD Unavailable Unavailable FishTessy MD Unavailable Unavailable FishTessy MD Unavailable Unavailable FishTessy MD Unavailable Unavailable Fish, Tessy Crump MD Unavailable Unavailable Fish, Tessy Crump MD Unavailable Unavailable Fish, Tessy Crump MD Unavailable Unavailable Fish, Tessy Crump MD Unavailable Unavailable Fish, Tessy Crump MD Unavailable Unavailable Fish, Tessy Crump MD Unavailable Unavailable Fish, Tessy Crump MD Unavailable Unavailable Fish, Tessy Crump MD Unavailable Unavailable Fish, Tessy Crump MD Unavailable Unavailable Fish, Tessy Crump MD Unavailable Unavailable Fish, Tessy Crump MD Unavailable Unavailable Fish, Tessy Crump MD Unavailable Unavailable Tessy Frankel MD Unavailable Unavailable Tessy Frankel MD Unavailable Unavailable FishTessy MD Unavailable Unavailable Tessy Frankel MD Unavailable Unavailable Fish, Tessy Crump MD Unavailable Unavailable Fish, Tessy Crump MD Unavailable Unavailable Fish, Tessy Crump MD Unavailable Unavailable Fish, Tessy Crump MD Unavailable Unavailable FishTessy MD Unavailable Unavailable Fish, Tessy Crump MD Unavailable Unavailable Lacie Ross MD Unavailable Unavailable Lacie Ross MD Unavailable Unavailable Lacie Ross MD Unavailable Unavailable Lacie Ross MD Unavailable Unavailable Lacie Ross MD Unavailable Unavailable Lacie Ross MD Unavailable Unavailable Lacie Ross MD Unavailable Unavailable Lacie Ross MD Unavailable Unavailable Lacie Ross MD Unavailable Unavailable Lacie Ross MD Unavailable Unavailable Lacie Ross MD Unavailable Unavailable Lacie Ross MD Unavailable Unavailable Lacie Ross MD Unavailable Unavailable Lacie Ross MD Unavailable Unavailable Lacie Ross MD Unavailable Unavailable Lacie Ross MD Unavailable Unavailable Lacie Ross MD Unavailable Unavailable Lacie Ross MD Unavailable Unavailable Lacei Ross MD Unavailable Unavailable Lacie Ross MD Unavailable Unavailable Lacie Ross MD Unavailable Unavailable Lacie Ross MD Unavailable Unavailable Lacie Ross MD Unavailable Unavailable Lacie Ross MD Unavailable Unavailable Lacie Ross MD Unavailable Unavailable Lacie Ross MD Unavailable Unavailable Lacie Ross MD Unavailable Unavailable Lacie Ross MD Unavailable Unavailable Lacie Ross MD Unavailable Unavailable Lacie Ross MD Unavailable Unavailable Lacie Ross MD Unavailable Unavailable Lacie Ross MD Unavailable Unavailable Lacie Ross MD Unavailable Unavailable Lacie Ross MD Unavailable Unavailable Lacie Ross MD Unavailable Unavailable Lacie Ross MD Unavailable Unavailable Lacie Ross MD Unavailable Unavailable Lacie Ross MD Unavailable Unavailable Lacie Ross MD Unavailable Unavailable Lacie Ross MD Unavailable Unavailable Lacie Ross MD Unavailable Unavailable Lacie Ross MD Unavailable Unavailable Lacie Ross MD Unavailable Unavailable Lacie Ross MD Unavailable Unavailable Lacie Ross MD Unavailable Unavailable Lacie Ross MD Unavailable Unavailable Lacie Ross MD Unavailable Unavailable Lacie Ross MD Unavailable Unavailable Lacie Ross MD Unavailable Unavailable Lacie Ross MD Unavailable Unavailable Lacie Ross MD Unavailable Unavailable Lacie Ross MD Unavailable Unavailable Lacie Ross MD Unavailable Unavailable Lacie Ross MD Unavailable Unavailable Lacie Ross MD Unavailable Unavailable Lacie Ross MD Unavailable Unavailable Lacie Ross MD Unavailable Unavailable Lacie Ross MD Unavailable Unavailable Lacie Ross MD Unavailable Unavailable Lacie Ross MD Unavailable Unavailable Lacie Ross MD Unavailable Unavailable Lacie Ross MD Unavailable Unavailable Lacie Ross MD Unavailable Unavailable Lacie Ross MD Unavailable Unavailable Lacie Ross MD Unavailable Unavailable Lacie Ross MD Unavailable Unavailable Lacie Ross MD Unavailable Unavailable Lacie Ross MD Unavailable Unavailable Lacie Ross MD Unavailable Unavailable Lacie Ross MD Unavailable Unavailable Lacie Ross MD Unavailable Unavailable Lacie Ross MD Unavailable Unavailable Lacie Ross MD Unavailable Unavailable Lacie Ross MD Unavailable Unavailable Lacie Ross MD Unavailable Unavailable Lacie Ross MD Unavailable Unavailable Lacie Ross MD Unavailable Unavailable Lacie Ross MD Unavailable Unavailable Lacie Ross MD Unavailable Unavailable Fons, M Adriana MD ALLERGY IMMUNOLOGY Unavailable Unavailable Fons, M Adriana MD ALLERGY IMMUNOLOGY Unavailable Unavailable Fons, M Adriana MD ALLERGY IMMUNOLOGY Unavailable Unavailable Fons, M Adriana MD ALLERGY IMMUNOLOGY Unavailable Unavailable Fons, M Adriana MD ALLERGY IMMUNOLOGY Unavailable Unavailable Fons, M Adriana MD ALLERGY IMMUNOLOGY Unavailable Unavailable Fons, M Adriana MD ALLERGY IMMUNOLOGY Unavailable Unavailable Fons, M Adriana MD ALLERGY IMMUNOLOGY Unavailable Unavailable Fons, M Adriana MD ALLERGY IMMUNOLOGY Unavailable Unavailable Fons, M Adriana MD ALLERGY IMMUNOLOGY Unavailable Unavailable Fons, M Adriana MD ALLERGY IMMUNOLOGY Unavailable Unavailable Fons, M Adriana MD ALLERGY IMMUNOLOGY Unavailable Unavailable Fons, M Adriana MD ALLERGY IMMUNOLOGY Unavailable Unavailable Fons, M Adriana MD ALLERGY IMMUNOLOGY Unavailable Unavailable Fons, M Adriana MD ALLERGY IMMUNOLOGY Unavailable Unavailable Fons, M Adriana MD ALLERGY IMMUNOLOGY Unavailable Unavailable Fons, M Adriana MD ALLERGY IMMUNOLOGY Unavailable Unavailable Fons, M Adriana MD ALLERGY IMMUNOLOGY Unavailable Unavailable Fons, M Adriana MD ALLERGY IMMUNOLOGY Unavailable Unavailable Fons, M Adriana MD ALLERGY IMMUNOLOGY Unavailable Unavailable Fons, M Adriana MD ALLERGY IMMUNOLOGY Unavailable Unavailable Fons, M Adriana MD ALLERGY IMMUNOLOGY Unavailable Unavailable Fons, M Adriana MD ALLERGY IMMUNOLOGY Unavailable Unavailable Fons, M Adriana MD ALLERGY IMMUNOLOGY Unavailable Unavailable Fons, M Adriana MD ALLERGY IMMUNOLOGY Unavailable Unavailable Fons, M Adriana MD ALLERGY IMMUNOLOGY Unavailable Unavailable Fons, M Adriana MD ALLERGY IMMUNOLOGY Unavailable Unavailable Fons, M Adriana MD ALLERGY IMMUNOLOGY Unavailable Unavailable Fons, M Adriana MD ALLERGY IMMUNOLOGY Unavailable Unavailable Fons, M Adriana MD ALLERGY IMMUNOLOGY Unavailable Unavailable Fons, M Adriana MD ALLERGY IMMUNOLOGY Unavailable Unavailable Fons, M Adriana MD ALLERGY IMMUNOLOGY Unavailable Unavailable Fons, M Adriana MD ALLERGY IMMUNOLOGY Unavailable Unavailable Fons, M Adriana MD ALLERGY IMMUNOLOGY Unavailable Unavailable Fons, M Adriana MD ALLERGY IMMUNOLOGY Unavailable Unavailable Fons, M Adriana MD ALLERGY IMMUNOLOGY Unavailable Unavailable Fons, M Adriana MD ALLERGY IMMUNOLOGY Unavailable Unavailable Fons, M Adriana MD ALLERGY IMMUNOLOGY Unavailable Unavailable Fons, M Adriana MD ALLERGY IMMUNOLOGY Unavailable Unavailable Fons, M Adriana MD ALLERGY IMMUNOLOGY Unavailable Unavailable Fons, M Adriana MD ALLERGY IMMUNOLOGY Unavailable Unavailable Fons, M Adriana MD ALLERGY IMMUNOLOGY Unavailable Unavailable Fons, M Adriana MD ALLERGY IMMUNOLOGY Unavailable Unavailable Fons, M Adriana MD ALLERGY IMMUNOLOGY Unavailable Unavailable Fons, M Adriana MD ALLERGY IMMUNOLOGY Unavailable Unavailable Fons, M Adriana MD ALLERGY IMMUNOLOGY Unavailable Unavailable Fons, M Adriana MD ALLERGY IMMUNOLOGY Unavailable Unavailable Fons, M Adriana MD ALLERGY IMMUNOLOGY Unavailable Unavailable Fons, M Adriana MD ALLERGY IMMUNOLOGY Unavailable Unavailable Fons, M Adriana MD ALLERGY IMMUNOLOGY Unavailable Unavailable Fons, M Adriana MD ALLERGY IMMUNOLOGY Unavailable Unavailable Fons, M Adriana MD ALLERGY IMMUNOLOGY Unavailable Unavailable Fons, M Adriana MD ALLERGY IMMUNOLOGY Unavailable Unavailable [place] EAS[place] MD Unavailable Unavailable [place] MD Unavailable Unavailable [place] MD Unavailable Unavailable [place] MD Unavailable Unavailable [place] E[place] MD Unavailable Unavailable [place] E[place] MD Unavailable Unavailable [place] EASON MD Unavailable Unavailable EBONY, C BRANDY MD Unavailable Unavailable EBONY, C BRANDY MD Unavailable Unavailable EBONY, C BRANDY MD Unavailable Unavailable EBONY, C BRANDY MD Unavailable Unavailable EBONY, C BRANDY MD Unavailable Unavailable EBONY, C BRANDY MD Unavailable Unavailable EBONY, C BRANDY MD Unavailable Unavailable EBONY, C BRANDY MD Unavailable Unavailable EBONY, C BRANDY MD Unavailable Unavailable EBONY, C BRANDY MD Unavailable Unavailable EBONY, C BRANDY MD Unavailable Unavailable EBONY, C BRANDY MD Unavailable Unavailable EBONY, C BRANDY MD Unavailable Unavailable EBONY, C BRANDY MD Unavailable Unavailable EBONY, C BRANDY MD Unavailable Unavailable EBONY, C BRANDY MD Unavailable Unavailable EBONY, C BRANDY MD Unavailable Unavailable EBONY, C BRANDY MD Unavailable Unavailable EBONY, C BRANDY MD Unavailable Unavailable EBONY, C BRANDY MD Unavailable Unavailable EBONY, C BRANDY MD Unavailable Unavailable EBONY, C BRANDY MD Unavailable Unavailable EBONY, C BRANDY MD Unavailable Unavailable EBONY, C BRANDY MD Unavailable Unavailable EBONY, C BRANDY MD Unavailable Unavailable EBONY, C BRANDY MD Unavailable Unavailable EBONY, C BRANDY MD Unavailable Unavailable Re-disclosure Warning The records that you are about to access may contain information from federally-assisted alcohol or drug abuse programs. If such information is present, then the following federally mandated warning applies: This information has been disclosed to you from records protected by federal confidentiality rules (42 CFR part 2). The federal rules prohibit you from making any further disclosure of this information unless further disclosure is expressly permitted by the written consent of the person to whom it pertains or as otherwise permitted by 42 CFR part 2. A general authorization for the release of medical or other information is NOT sufficient for this purpose. The Federal rules restrict any use of the information to criminally investigate or prosecute any alcohol or drug abuse patient.The records that you are about to access may contain highly sensitive health information, the redisclosure of which is protected by Article 27-F of the [facility] Public Health law. If you continue you may have access to information: Regarding HIV / AIDS; Provided by facilities licensed or operated by the [facility] Office of Mental Health; or Provided by the [facility] Office for People With Developmental Disabilities. If such information is present, then the following [facility] mandated warning applies: This information has been disclosed to you from confidential records which are protected by state law. State law prohibits you from making any further disclosure of this information without the specific written consent of the person to whom it pertains, or as otherwise permitted by law. Any unauthorized further disclosure in violation of state law may result in a fine or snf sentence or both. A general authorization for the release of medical or other information is NOT sufficient authorization for further disc losure. Family History Family Member Name Family Member Gender Family Member Status Date o f Status Description Data Source(s) Unknown Unknown Problem [facility] ([facility]) Unknown Female Problem [facility] ([facility]) Unknown Female Problem [facility] ([facility] Encounters Encounter Providers Location Date Indications Data Source(s ) Outpatient Attender: Tanika Reeves 09:30:00 AM EDT MED[facility] ([facility] ) Outpatient Attender: Umberto Ross MD Main office [facility] 12/01/2020 11:45:00 AM EDT [facility] ([facility]) Outpatient Attender: Teri Montalvo [facility] Main Office 10/22/2020 10:45:00 AM EDT [facility] Outpatient Attender: Tanika Reeves 01:30:00 PM EDT MED[facility] ([facility] ) Outpatient Attender: Tanika Reeves 10:45:00 AM EDT MED[facility] ([facility] ) Outpatient Attender: Alisia Frankel MD Physical Therapy 07/25 12:00:00 PM EDT MED[facility] ([facility]) Outpatient Attender: MERE Jeffrey/Dana/Noé/Mera 06/25/2020 08:00:00 AM EST [facility] ([facility] Outpatient [address] [place] [address] 05/29/2020 12:00:00 AM EST eCW1 ([facility]) Office Visit Attender: Tanika Reeves 08:30:00 AM EST MED[facility] ([facility] ) Outpatient Attender: Alisia Frankel MD Physical Therapy 05/22 02:15:00 PM EST [facility] ([facility]) Outpatient [address] [facility] [place] [address] 05/22/2020 12:00:00 AM EST [facility] ([facility]) Mohs [address] [facility] [facility] [place] [address] 05/15/2020 12:00:00 AM EST [facility]CW1 [facility]) Office Visit Attender: NORA SHELTON Physical Therapy 05/01/2020 08:15:00 AM EST MED[facility] ([facility]) Office Visit Attender: NORA SHELTON Physical Therapy 04/23/2020 11:45:00 AM EST MED[facility] ([facility]) Outpatient Attender: BRANDY Eason/Dana/Noé/Reind l 04/21/2020 09:00:00 AM EST [facility] ([facility]) Office Visit Attender: NORA SHELTON Physical Therapy 04/16/2020 08:15:00 AM EST MED[facility] ([facility]) Outpatient Attender: Naya Eason/Barlow/A meera/Reindl 04/14/2020 12:00:00 PM EST [facility] ([facility] Outpatient Attender: NORA SHELTON Physical Therapy 03/20/2020 02:30:00 PM EST MED[facility] ([facility]) Office Visit Attender: Umberto Ross MD Main office - [facility] 03/13/2020 09:00:00 AM EST [facility] ([facility]) Outpatient Attender: MERE Jeffrey/Barlow/Noé/Reindl 03/12/2020 01:30:00 PM EST MED[facility] ([facility]) Outpatient Attender: Tanika Reeves 08:30:00 AM EST MED[facility] ([facility] ) Outpatient Attender: MERE Jeffrey/Dana/Noé/Reindl 03/04/2020 12:00:00 PM EST [facility] ([facility] Outpatient Attender: Adriana Reeves 02/17 09:00:00 AM EDT MED[facility] ([facility] ) Outpatient Attender: Tanika Reeves 10:15:00 AM EDT MED[facility] ([facility] ) Outpatient Referrer: Adriana JACOB SJP.TORI-SJP.TORI 01/02/2020 12:00:[address] [facility] Office Visit Attender: NORA SHELTON Physical Therapy 12/24/2019 01:45:00 PM EDT [facility] Attender: Adriana JACOB SJP.TORI-SJP.TORI 0 12:00:00 AM EDT - 12/05/2019 09:50:03 AM EDT [facility] Immunizations Vaccine Date Status Description Data Source(s) COVID-19 VACCINE Moderna 06/16/2020 12:00:00 AM EST completed [facility] Vaccine Series Complete: YESThis Data wa s Submitted to [facility]. COVID-19 VACCINE Moderna 05/19/2020 12:00:00 AM EST completed [facility] Vaccine Series Complete: NOThis Data was Submitted to [facility] [employer]. New in 2011. IIV4 02/06/2020 02:47:00 PM EDT completed MED[facility] ([facility]) This CVX code allows reporting of a vacc ination when formulation is unknown (for example, when recording a Influenza vaccination when noted on a vaccination card) 01/17/2020 09:10:00 AM EDT completed MEDEN T ([facility]) Medications Medication Brand Name Start Date Product Form Dose Route Admi nistrative Instructions Pharmacy Instructions Status Indications Reaction Description Data Source(s) Hydralazine Hydrochloride 10 MG Oral Tablet Hydralazine HCL 10/08/2020 12:00:00 AM EDT ORAL active MED[facility] ([facility]) Hydrochlorothiazide 25 MG Oral Tablet Hydrochlorothiazide 12:00:00 AM EDT ORAL active MED[facility] ([facility]) Glipizide 5 MG Oral Tablet Glipizide 08/28/2020 12:00:00 AM EDT active MEDENT ([facility]) Centrum Silver 50+Men 05/27/2020 12:00:00 AM EST ORAL active MED[facility] ([facility]) Glipizide 5 MG Oral Tablet Glipizide 05/27/2020 12:00:00 AM EST completed MED[facility] ([facility]) Preservision Areds 2 05/27/2020 12:00:00 AM EST ORAL active [facility] ([facility]) Total Memory & Focus Formula 05/27/2020 12:00:00 AM EST active [facility] ([facility]) Vitamin B Complex-C 05/27/2020 12:00:00 AM EST ORAL active MED[facility] ([facility]) 30 ACTUAT fluticasone furoate 0.1 MG/ACT UAT / vilanterol 0.025 MG/ACTUAT Dry Powder Inhaler [Breo] Breo Ellipta 05/22/2020 12:00:00 AM EST active MED[facility] ([facility]) Covid-19 vaccine, Unspecified 05/19/2020 12:00:00 AM EST completed [facility]) Medication administered onsite 30 ACTUAT fluticasone furoate 0.2 MG/ACT UAT / vilanterol 0.025 MG/ACTUAT Dry Powder Inhaler [Breo] Breo Ellipta 03/12/2020 12:00:00 AM EST OR AL active MEDENT ([facility] ) 200 ACTUAT Albuterol 0.09 MG/ACTUAT Metered Dose Inhal er [Ventolin] Ventolin HFA 03/12/2020 12:00:00 AM EST RESPIRATORY active MED[facility] ([facility] ) Microspacer 03/06/2020 12:00:00 AM EST active [facility] ([facility]) gabapentin 100 MG Oral Capsule Gabapentin 03/06/2020 12:00:00 AM EST ORAL active [facility] ([facility]) duloxetine 20 MG Delayed Release Oral Capsule Duloxetine HCL 02/05/2020 12:00:00 AM EDT active [facility] ([facility]) Insurance Providers Payer name Policy type / Coverage type Policy ID Covered alliance party ID Covered alliance party's relationship to melissa Policy Melissa Plan Information [facility] Part B [id number] Self [id number] [facility] Part B [id number] Self [id number] [facility] Part B [id number] Self 1 [id number] [facility] Part B [id number] Self [facility] Part B [id number] Self 1 [id number] [facility] Part B [id number] Self 1 [id number] [facility] Part B [id number]91.19243.0 Self [id number] [facility] Part B [id number] 2.840.1.727171.3.227.99.991.72438.0 Self [id number] [facility] Part B [id number] 2.840.1.62[id number] Self [id number] [facility] Part B [id number] 2.840.1.368692.3.227.99.991.34809.0 Self [id number] [facility] Part B [id number] 2.16.840.1.618503.3.227.99.991.67731.0 Self [id number] [facility] Part B [id number]9.991.11739.0 Self [id number] [facility] Part B [id number] Self [id number] [facility] Part B [id number] 2.160.1.56[id number] Self [id number] MEDICARE [id number] Nichol [id number] R47 MEDICARE [id number] SP [id number] [id number] MEDICARE [id number] SP [id number] A Medicare Medicare Primary [id number] Self [id number] Medicare Natl Govt Servic Medicare Primary [id number] Self [id number] Medicare Medicare Primary [id number] Self [id number] Medicare Medicare Primary [id number] 2.0.1.332904.3.227. 99.936.2973.0 Self [id number] Medicare Natl Govt Servic Medicare Primary [id number] 2.840.1.271537.3.227.99.4595.50065.0 Self [id number] Medicare Medicare Primary [id number] 2.0.1.667792.3.227.99.936 .2973.0 Self [id number] Medicare Medicare Primary [id number] 2.16.840.1.708440.3.227.99.936 .2973.0 Self [id number] Medicare Medicare Primary [id number] 2.16.840.1.833005.3.227.99.936 .2973.0 Self [id number] Medicare Natl Govt Servic Medicare Primary [id number] 2.16840.1.677675.3.227.99.4595.49607.0 Self [id number] Medicare Medicare Primary [id number] 2.16.840.1.641087.3.227.99.936 .2973.0 Self [id number] Medicare Medicare Primary [id number] 2.16840.1.316416.3.227.99.936 .2973.0 Self [id number] MEDICARE [id number] SP [id number] A Medicare Natl Govt Servic Medicare Primary [id number] 2.16840.1.236685.3.227.99.4595.79805.0 Self [id number] Medicare Medicare Primary [id number] 2.16840.1.904065.3.227.99.936 .2973.0 Self [id number] Medicare Medicare Primary [id number] 2.16840.1.225874.3.227.99.936 .2973.0 Self [id number] Medicare Medicare Primary [id number] 2.16840.1.991708.3.227.99.936 .2973.0 Self [id number] Medicare Medicare Primary [id number] 2.16840.1.416425.3.227.99.936 .2973.0 Self [id number] Medicare Natl Govt Servic Medicare Primary [id number] 2.16840.1.499212.3.227.99.4595.13850.0 Self [id number] Medicare Natl Govt Servic Medicare Primary [id number].4595.07460.0 Self Medicare Medicare Primary [id number] Self Medicare [place] Primary .1.914133.3. 227.99.991.883097.0 Self [id number] A BCBS E[place]IRE LETI DIV [id number] SP [id number] BCBS EMPIRE LETI DIV [id number] SP [id number] BCBS EMPIRE LETI DIV [id number] SP [id number] BCBS EMPIRE LETI DIV [id number] SP [id number] Medicare [place] Medicare Primary [id number] .[id number] Self 1 [id number] Medicare [place] Medicare Primary [id number] .[id number] Self 1 [id number] Medicare [place] Medicare Primary [id number] .[id number]1.0 Self 1 [id number] Medicare [place] Medicare Primary [id number] .[id number]1.0 Self 1 [id number] Medicare [place] Medicare Primary [id number] .1.941640.3.227.99.991.68557.0 Self 1 [id number] Medicare [place] Medicare Primary [id number] .1.609894.3.227.99.991.79432.0 Self 1 [id number] Medicare [place] Medicare Primary [id number] .[id number]46.0 Self 1 [id number] Medicare [place] Medicare Primary [id number] .[id number].0 Self 1 [id number] Medicare [place] Medicare Primary .1.506007.3.227. 99.991.07550.0 Self EXCELLUS BCBS [id number] Nichol YLS [id number] [facility] Medigap Part B [id number] Self [facility] Medigap Part B [id number] 883.3.227.99.936.2973.0 Self [id number] [facility] O [id number] S [id number] [facility] Medigap Part B [id number] 2.0.1.113 883.3.227.99.936.2973.0 Self [id number] BCBS EMPIRE LETI DIV [facility] Medigap Part B [id number] 2.0.1.113 883.3.227.99.936.2973.0 Self [id number] [facility] Medigap Part B [id number] Self [id number] Medicare [place] Medicare Primary [id number] 2.0.1.613583.3.227.99.991.09936.0 Self [id number] [facility] Medigap Part B [id number] Self [id number] Medicare [place] Medicare Primary [id number] 2.840.1.114574.3.227.99.991.51680.0 Self [id number] [facility] Medigap Part B [id number] 2.0.1.113 883.3.227.99.936.2973.0 Self [id number] [facility] Medigap Part B [id number] 2.0.1.113 883.3.227.99.936.2973.0 Self [id number] [facility] Medigap Part B [id number] Self [id number] Medicare [place] Medicare Primary [id number] 2.0.1.311352.3.227.99.991.38049.0 Self [id number] MEDICARE [id number] SP [id number] [id number] Medicare [place] Medicare Primary [id number] 2.0.1.220405.3.227.99.991.14806.0 Self [id number] [facility] Medigap Part B [id number] .0.1.113 883.3.227.99.936.2973.0 Self [id number] [facility] Medigap Part B [id number] ..1.113 [id number] Self [id number] [facility] Medigap Part B .[id number] Self [id number] [id number] SP [id number] EMPIRE ([facility]) O [id number] S [id number] [employer] [id number] SP [id number] [facility] Medigap Part B [id number] [id number] Self [id number] [facility] Medigap Part B [id number] .0.1.113 [id number] Self [id number] [facility] Medigap Part B Self [facility] Medigap Part B [id number] [id number] Self [id number] [employer] [id number] SP [id number] MEDICARE C [id number] S [id number] Medicare [place] Medicare Primary [id number] Self [id number] Problems, Conditions, and Diagnoses Code Display Name Description Problem Type Effective Dates Data Source(s) E04.9 Mass of thyroid gland Mass of thyroid gland Problem 06/25/2020 12:00:00 AM EST MED[facility] ([facility], ) C44.41 [id number] Basal cell carcinoma of scalp Problem 05/15/2020 12:00:00 AM EST [facility] E04.9 Mass of thyroid gland Mass of thyroid gland Problem 04/21/2020 12:00:00 AM EST MED[facility] ([facility], ) [id number] Allergic asthma without status asthmatic us Allergic asthma without status asthmaticus Problem 04/14/2020 12:00:00 AM EST MED[facility] ([facility] ) E04.9 Mass of thyroid gland Mass of thyroid gland Problem 03/18/2020 12:00:00 AM EST MED[facility] ([facility], ) E04.9 Mass of thyroid gland Mass of thyroid gland Problem 03/12/2020 12:00:00 AM EST MED[facility] ([facility]) J45.40 Uncomplicated moderate persistent asthma Uncomplicated moderate persistent asthma Problem 03/12/2020 12:00:00 AM EST MED[facility] ([facility]) Z87.891 Ex-smoker Ex-smoker Problem 03/04/2020 12:00:00 AM ES T MED[facility] ([facility], ) R91.8 Abnormal findings on diagnostic imaging of lung Abnormal findings on diagnostic imaging of lung Problem 03/04/2020 12:00:00 AM EST MED[facility] ([facility]) E04.9 Mass of thyroid gland Mass of thyroid gland Problem 03/04/2020 12:00:00 AM EST [facility] ([facility]) R06.00 Dyspnea Dyspnea Problem 03/04/2020 12:00:00 AM ES T MED[facility] ([facility]) Surgeries/Procedures Procedure Description Date Indications Data Source(s) OFFICE OUTPATIENT VISIT 25 MINUTES 02/10/2021 12:00:00 AM EDT MED[facility] ([facility]) Diabetic Retinal Eye Exam 01/22/2021 12:00:00 AM EDT [facility] NON-INVASIVE PHYSIOLOGIC STUDY EXTREMITY 3 LEVLS 01/09 12:00:00 AM EDT MED[facility] ([facility] ) TSTG ANS FUNCJ CARDIOVAGAL INNERVAJ PARASYMP 12:00:00 AM EDT MED[facility] ([facility], ) TESTING AUTONOMIC NERVOUS SYSTEM FUNCTION 01/09/2021 1 2:00:00 AM EDT MEDENT ([facility]) ELECTROENCEPHALOGRAM W/REC AWAKE&ASLEEP 01/08/2021 12: 00:00 AM EDT MED[facility] ([facility]) ELECTROENCEPHALOGRAM W/REC AWAKE&ASLEEP 01/08/2021 12: 00:00 AM EDT MED[facility] ([facility]) DEBRIDEMENT NAIL ANY METHOD 12/19/2020 12:00:00 AM EDT [facility] ([facility] FALLS RISK ASSESSMENT DOCUMENTED 12/01/2020 12:00:00 A M EDT MED[facility] ([facility], ) OFFICE OUTPATIENT VISIT 25 MINUTES 12/01/2020 12:00:00 AM EDT MED[facility] ([facility]) Shave Biopsy Of Skin, Single Lesion 10/22/2020 12:00:0 0 AM EDT MED[facility] ([facility]) DESTRUCTION BENIGN LESIONS UP TO 14 10/22/2020 12:00:0 0 AM EDT MED[facility] ([facility]) OFFICE OUTPATIENT VISIT 25 MINUTES 10/22/2020 12:00:00 AM EDT MED[facility] ([facility]) OFFICE OUTPATIENT VISIT 25 MINUTES 10/08/2020 12:00:00 AM EDT MED[facility] ([facility]) DEBRIDEMENT NAIL ANY METHOD 10/03/2020 12:00:00 AM EDT [facility] OFFICE OUTPATIENT VISIT 25 MINUTES 08/28/2020 12:00:00 AM EDT MED[facility] ([facility]) DEBRIDEMENT NAIL ANY METHOD 07/25/2020 12:00:00 AM EDT [facility] ([facility] Spirometry 06/25/2020 12:00:00 AM EST M EDENT ([facility] ) Staple Removal 05/29/2020 12:00:00 AM EST [facility] ECG ROUTINE ECG W/LEAST 12 LDS W/I&R 05/27/2020 12:00: 00 AM EST MED[facility] ([facility]) Suture Removal 05/22/2020 12:00:00 AM EST [facility]CW1 [facility]) DEBRIDEMENT NAIL ANY METHOD 05/16/2020 12:00:00 AM EST [facility] ARTHROCENTESIS ASPIR&/INJECTION MAJOR JT/BURSA 12:00:00 AM EST MED[facility] ([facility]) ARTHROCENTESIS ASPIR&/INJECTION MAJOR JT/BURSA 12:00:00 AM EST MED[facility] ([facility]) ARTHROCENTESIS ASPIR&/INJECTION MAJOR JT/BURSA 020 12:00:00 AM EST MED[facility] ([facility]) ARTHROCENTESIS ASPIR&/INJECTION MAJOR JT/BURSA 020 12:00:00 AM EST MED[facility] ([facility]) Aerosol Or Vapor Inhalations 03/12/2020 12:00:00 AM ES T MED[facility] ([facility] ) Bronchospasm Evaluation 03/10/2020 12:00:00 AM EST [facility] ([facility], ) Maximum Breathing Capacity, Maximal Voluntary Ventilation 03/10/2020 12:00:00 AM EST MED[facility] ([facility] ) Plethysmography Determination Lung Volumes & Per Airway Resi st 03/10/2020 12:00:00 AM EST MED[facility] ([facility] ) DIFFUSING CAPACITY 03/10/2020 12:00:00 AM EST MED[facility] ([facility] ) DEBRIDEMENT NAIL ANY METHOD 03/07/2020 12:00:00 AM EST [facility] Spirometry 03/04/2020 12:00:00 AM [facility] RADIOLOGIC EXAM KNEE COMPLETE 4/MORE VIEWS 12/24/2019 12:00:00 AM EDT MED[facility] ([facility]) DEBRIDEMENT NAIL ANY METHOD 6/> 12/21/2019 12:00:00 AM EDT [facility] ([facility] Results ID Date Data Source [id number] 02/10/2021 10:11:00 AM EDT MED[facility] ([facility]) Name Value Range Interpretation Code Description Data Jeri rce(s) Supporting Document(s) Carcinoembryonic Ag [Mass/volume] in Serum or Plasma 2.5 ng/mL [facility] THE CEA ASSAY IS PERFORMED ON THE [employer]UR BY CHEMILUMINESCENCE AND SHOULD NOT BE COMPARED INTERCHANGEABLY WITH OTHER METHODS. IT SHOULD NOT BE USED ALONE A SCREENING TEST OR DIAGNOSIS FOR THE PRESENCE OR ABSENCE OF MALIGNANT DISEASE. PREDICTIONS OF DISEASE RECURRENCE SHOULD NOT BE BASED SOLELY ON VALUES OBTAINED FROM SERIAL PATIENT SERUM VALUES. ID Date Data Source [id number] 02/10/2021 10:06:00 AM EDT [facility] Name Value Range Interpretation Code Description Data Jeri rce(s) Supporting Document(s) Thyrotropin [Units/volume] in Serum or Plasma by Detec tion limit <= 0.05 mIU/L 0.37 uIU/mL 0.36-3.74 [facility] ([facility] ) ID Date Data Source [id number] 02/10/2021 10:06:00 AM EDT [facility] Name Value Range Interpretation Code Description Data Jeri rce(s) Supporting Document(s) Urea nitrogen [Mass/volume] in Serum or Plasma 31 mg/dL 7-18 [facility] ([facility]) Glucose [Mass/volume] in Serum or Plasma 143 mg/dL 74-99 [facility] ([facility]) 100-125 mg/dL PRE-DIABETES/FASTING >126 mg/dL DIABETES/FASTING Sodium [Moles/volume] in Serum or Plasma 141 meq/L 136-145 [facility] ([facility]) Creatinine 1.9 mg/dL 0.6-1.3 [facility] Potassium [Moles/volume] in Serum or Plasma 4.4 meq/L 3.5-5.1 [facility] ([facility]) Chloride [Moles/volume] in Serum or Plasma 103 meq/L 98-107 [facility] ([facility]) Carbon dioxide, total [Moles/volume] in Serum or Plasma 32 meq/L 21 -32 [facility] ([facility]) Calcium [Mass/volume] in Serum or Plasma 9.5 mg/dL 8.5-10.1 [facility] ([facility]) Glomerular filtration rate/1.73 sq M pre dicted among non-blacks [Volume Rate/Area] in Serum or Plasma by Creatinine-based formula (MDRD) 34 mL/min [facility] ([facility]) Glomerular filtration rate/1.73 sq M pre dicted among blacks [Volume Rate/Area] in Serum or Plasma by Creatinine-based formula (MDRD) 41 mL/min [facility] <content>CHRONIC KIDNEY DISEASE STAGING PER NKF</content>
<content></content>
<content>STAGE I & II GFR >= 60 NORMAL TO MILDLY DECREASED</content>
<content>STAGE III GFR 30-59 MODERATELY DECREASED</content>
<content>STAGE IV GFR 15-29 SEVERELY DECREASED</content>
<content>STAGE V GFR <15 VERY LITTLE GFR LEFT</content>
<content>ESRD GFR <15 ON ENGINEER TECHNICIAN</content>
<content></content> ID Date Data Source [id number] 02/10/2021 10:06:00 AM EDT [facility] ([facility]) Name Value Range Interpretation Code Description Data Jeri rce(s) Supporting Document(s) Magnesium 1.7 mg/dL 1.8-2.4 [facility]) ID Date Data Source [id number] 02/10/2021 10:06:00 AM EDT [facility] ([facility]) Name Value Range Interpretation Code Description Data Jeri rce(s) Supporting Document(s) Hemoglobin A1c/Hemoglobin.total in Blood 6.5 % [facility] Lab Result Notes: Pre-Diabetes 5.7 - 6.4 % Diabetes = or > 6.5% Glucose mean value [Mass/volume] in Blood Estimated fr om glycated hemoglobin 140 mg/dL 60-110 [facility] ([facility] ID Date Data Source [id number] 02/10/2021 10:06:00 AM EDT [facility] ([facility]) Name Value Range Interpretation Code Description Data Jeri rce(s) Supporting Document(s) Leukocytes [#/volume] in Blood by Automated count 8.1 x10*3/UL 4.1-10 .9 [facility] ([facility]) Erythrocytes [#/volume] in Blood by Automated count 5.04 x10*6/UL 4.2 0-6.30 [facility] ([facility]) Hemoglobin [Mass/volume] in Blood 14.3 g/dL 12.0-18.0 [facility] ([facility]) MCV 85.5 fL 80.0-97.0 [facility] ([facility]) Hematocrit [Volume Fraction] of Blood by Automated count 43.1 % 3 7.0-51.0 [facility] ([facility]) MCH 28.4 pg 26.0-32.0 [facility] ([facility]) Platelets [#/volume] in Blood by Automated count 215 x10*3/UL 140-440 [facility] ([facility]) MCHC 33.3 g/dL 31.0-38.0 [facility] ([facility]) Erythrocyte distribution width [Ratio] by Automated count 12.9 % 11.6-13.7 [facility] ([facility]) Lymph % 28.3 % 10.0-58.5 [facility] ([facility]) MPV 8.6 FL 7.8-11.0 [facility] ([facility]) Mid % 6.7 % 1.7-9.3 [facility] ([facility]) Lymph # 2.3 x10*3/UL 0.6-4.1 [facility] ([facility]) Mid # 0.5 x10*3/UL 0.1-0.6 [facility]) Neut % 65.0 % 37.0-92.0 [facility]) Neut # 5.3 x10*3/UL 2.0-7.8 [facility] ([facility]) ID Date Data Source [id number] 02/10/2021 10:06:00 AM EDT [facility] ([facility]) Name Value Range Interpretation Code Description Data Jeri rce(s) Supporting Document(s) Magnesium, Serum Laboratory test result [facility] ([facility]) Hemoglobin A1c/Hemoglobin.total in Blood Laboratory test result [facility] ([facility]) ID Date Data Source [id number] 10/22/2020 11:02:00 AM EDT [facility] ([facility]) Name Value Range Interpretation Code Description Data Jeri rce(s) Supporting Document(s) Laboratory test finding (navigational concept) Laboratory test result [facility] ([facility]) No further treatment necessary Laboratory test finding (navigational concept) Laboratory test result [facility] ([facility]) No further treatment necessary ID Date Data Source [id number] 10/22/2020 11:02:00 AM EDT [facility] ([facility]) Name Value Range Interpretation Code Description Data Jeri rce(s) Supporting Document(s) Laboratory test finding (navigational concept) Laboratory test result [facility] ([facility]) ID Date Data Source [id number] 08/28/2020 11:27:00 AM EDT [facility] ([facility]) Name Value Range Interpretation Code Description Data Jeri rce(s) Supporting Document(s) Thyrotropin [Units/volume] in Serum or Plasma by Detec tion limit <= 0.05 mIU/L 0.10 uIU/mL 0.36-3.74 [facility] ([facility] ) ID Date Data Source [id number] 08/28/2020 11:27:00 AM EDT [facility] ([facility]) Name Value Range Interpretation Code Description Data Jeri rce(s) Supporting Document(s) Cholesterol [Mass/volume] in Serum or Plasma 192 mg/dL 131-200 [facility]) Cholesterol in HDL [Mass/volume] in Serum or Plasma 54 mg/dL 35-60 [facility] ([facility]) Triglyceride [Mass/volume] in Serum or Plasma 206 mg/dL 30-150 [facility] ([facility]) Cholesterol in LDL [Mass/volume] in Serum or Plasma by calcu lation 97 CALC 50-159 [facility] ([facility]) ID Date Data Source [id number] 08/28/2020 11:27:00 AM EDT [facility] ([facility]) Name Value Range Interpretation Code Description Data Jeri rce(s) Supporting Document(s) Glucose [Mass/volume] in Serum or Plasma 148 mg/dL 74-99 [facility] ([facility]) 100-125 mg/dL PRE-DIABETES/FASTING >126 mg/dL DIABETES/FASTING Sodium [Moles/volume] in Serum or Plasma 142 meq/L 136-145 [facility] ([facility]) Creatinine 2.0 mg/dL 0.6-1.3 [facility] ([facility]) Urea nitrogen [Mass/volume] in Serum or Plasma 35 mg/dL 7-18 [facility] ([facility]) Potassium [Moles/volume] in Serum or Plasma 4.2 meq/L 3.5-5.1 [facility] ([facility]) Carbon dioxide, total [Moles/volume] in Serum or Plasma 32 meq/L 21 -32 [facility] ([facility]) Chloride [Moles/volume] in Serum or Plasma 103 meq/L 98-107 [facility] ([facility]) Calcium [Mass/volume] in Serum or Plasma 9.2 mg/dL 8.5-10.1 [facility] ([facility]) Alkaline phosphatase isoenzyme [Units/volume] in Serum or Pl asma 87 mg/dL 46-116 [facility] ([facility]) Total Bilirubin 1.4 mg/dL 0.2-1.0 [facility] ([facility]) Albumin [Mass/volume] in Serum or Plasma 3.8 g/dL 3.4-5.0 [facility] ([facility]) Aspartate aminotransferase [Enzymatic activity/volume] in Serum or Plasma 12 U/L 15-37 [facility] ([facility] Alanine aminotransferase [Enzymatic activity/volume] in Seru m or Plasma 22 U/L 12-78 [facility] ([facility]) A/G Ratio 1.27 CALC 1.00-1.90 [facility] ([facility]) Proteinase 3 Ab [Units/volume] in Serum 6.8 g/dL 6.4-8.2 [facility] ([facility]) Glomerular filtration rate/1.73 sq M pre dicted among non-blacks [Volume Rate/Area] in Serum or Plasma by Creatinine-based formula (MDRD) 32 mL/min [facility] ([facility]) Glomerular filtration rate/1.73 sq M pre dicted among blacks [Volume Rate/Area] in Serum or Plasma by Creatinine-based formula (MDRD) 39 mL/min [facility] ([facility]) <content>CHRONIC KIDNEY DISEASE STAGING PER NKF</content>
<content></content>
<content>STAGE I & II GFR >= 60 NORMAL TO MILDLY DECREASED</content>
<content>STAGE III GFR 30-59 MODERATELY DECREASED</content>
<content>STAGE IV GFR 15-29 SEVERELY DECREASED</content>
<content>STAGE V GFR <15 VERY LITTLE GFR LEFT</content>
<content>ESRD GFR <15 ON ENGINEER TECHNICIAN</content>
<content></content> ID Date Data Source [id number] 08/28/2020 11:27:00 AM EDT [facility] ([facility]) Name Value Range Interpretation Code Description Data Jeri rce(s) Supporting Document(s) Magnesium 1.6 mg/dL 1.8-2.4 [facility] ([facility]) ID Date Data Source [id number] 08/28/2020 11:27:00 AM EDT [facility] Name Value Range Interpretation Code Description Data Jeri rce(s) Supporting Document(s) Hemoglobin A1c/Hemoglobin.total in Blood 6.6 % [facility] ([facility]) Lab Result Notes: Pre-Diabetes 5.7 - 6.4 % Diabetes = or > 6.5% Glucose mean value [Mass/volume] in Blood Estimated fr om glycated hemoglobin 143 mg/dL 60-110 [facility] ([facility] ) ID Date Data Source [id number] 08/28/2020 11:27:00 AM EDT [facility] ([facility]) Name Value Range Interpretation Code Description Data Jeri rce(s) Supporting Document(s) Leukocytes [#/volume] in Blood by Automated count 8.4 x10*3/UL 4.1-10 .9 [facility] ([facility]) Erythrocytes [#/volume] in Blood by Automated count 5.01 x10*6/UL 4.2 0-6.30 [facility] ([facility]) Hemoglobin [Mass/volume] in Blood 14.2 g/dL 12.0-18.0 [facility] ([facility]) Hematocrit [Volume Fraction] of Blood by Automated count 42.3 % 3 7.0-51.0 [facility] ([facility]) MCH 28.4 pg 26.0-32.0 [facility] MCHC 33.6 g/dL 31.0-38.0 [facility] ([facility]) MCV 84.4 fL 80.0-97.0 [facility] ([facility]) Platelets [#/volume] in Blood by Automated count 242 x10*3/UL 140-440 [facility] ([facility]) Erythrocyte distribution width [Ratio] by Automated count 13.0 % 11.6-13.7 [facility] ([facility]) MPV 8.3 FL 7.8-11.0 [facility] ([facility]) Mid % 5.9 % 1.7-9.3 [facility]) Lymph % 25.6 % 10.0-58.5 [facility]) Neut % 68.5 % 37.0-92.0 [facility]) Mid # 0.6 x10*3/UL 0.1-0.6 [facility] ([facility]) Lymph # 2.1 x10*3/UL 0.6-4.1 [facility] ([facility]) Neut # 5.7 x10*3/UL 2.0-7.8 [facility] ([facility]) ID Date Data Source [id number] 08/28/2020 11:26:00 AM EDT [facility] ([facility]) Name Value Range Interpretation Code Description Data Jeri rce(s) Supporting Document(s) Thyroxine (T4) free [Mass/volume] in Serum or Plasma 1.34 ng/dL 0.76- 1.46 [facility] ([facility]) ID Date Data Source [id number] 07/17/2020 10:04:00 AM EDT [facility] ([facility]) Name Value Range Interpretation Code Description Data Jeri rce(s) Supporting Document(s) Thyrotropin [Units/volume] in Serum or Plasma by Detec tion limit <= 0.05 mIU/L 0.27 uIU/mL 0.36-3.74 [facility] ([facility] ) ID Date Data Source [id number] 07/17/2020 10:04:00 AM EDT [facility] ([facility]) Name Value Range Interpretation Code Description Data Jeri rce(s) Supporting Document(s) Thyrotropin [Units/volume] in Serum or Plasma by Detec tion limit <= 0.05 mIU/L 0.27 uIU/mL 0.36-3.74 [facility] ([facility]) ID Date Data Source [id number] 06/25/2020 08:50:00 AM EST [facility] ([facility], ) Name Value Range Interpretation Code Description Data Jeri rce(s) Supporting Document(s) PDFReport Laboratory test result [facility] ([facility], ) FVC-Pred 3.73 L [facility] ([facility], ) FVC-Pre 2.94 L [facility] ([facility]) Fev1-Pred 2.62 L [facility] ([facility], ) FVC-%Pred-Pre 78 L [facility] ([facility], ) FVC-LLN 2.82 L [facility] ([facility], ) Fev1-LLN 1.85 L [facility] ([facility]) Fev1-Pre 1.99 L [facility] ([facility]) Fev1-%Pred-Pre 75 L [facility] ([facility]) Fev6-Pred 3.46 L [facility] ([facility]) Fev6-Pre 2.92 L [facility] ([facility]) Onq2pbf-Dmtf 71 % [facility] ([facility]) Fev6-LLN 2.58 L [facility] ([facility]) Fev6-%Pred-Pre 84 L [facility] ([facility]) Vhi4emr-Sog 68 % [facility] ([facility]) Xcq0rxa-%Pred-Pre 95 % [facility] ([facility]) Ann8ume-VUQ 61 % [facility] ([facility]) Tyt8hjq-Ixg 99 % [facility] ([facility]) Bnw0taz-Wvtq 93 % [facility] ([facility]) Dyv3cwj-%Pred-Pre 107 % [facility] ([facility]) FEFMax-Pred 6.62 L/E/sec [facility] ([facility]) FEFMax-Pre 4.00 L/E/sec [facility] ([facility]) FEFMax-%Pred-Pre 60 L/E/sec [facility] ([facility]) FEFMax-LLN 4.37 L/E/sec [facility] ([facility]) Dah7586-Lmac 1.73 L/E/sec [facility] ([facility]) Pgy7269-Chv 1.15 L/E/sec [facility] ([facility]) Uyz6742-SQX 0.18 L/E/sec [facility] ([facility]) Qmw9059-%Pred-Pre 66 L/E/sec [facility] ([facility]) ExpTime-Pre 8.07 sec [facility] ([facility], ) Vkk4ucg2-Rdi 68 % [facility] ([facility]) Ted3kfa6-Xrzl 76 % [facility] ([facility]) Dkx9wak5-%Pred-Pre 89 % [facility] ([facility]) Mug1vgq5-ATR 67 % [facility] ([facility]) ID Date Data Source [id number] 05/13/2020 08:26:00 AM EST [facility] ([facility]) Name Value Range Interpretation Code Description Data Jeri rce(s) Supporting Document(s) Thyroxine (T4) free [Mass/volume] in Serum or Plasma 0.85 ng/dL 0.76- 1.46 [facility] ([facility]) ID Date Data Source [id number] 05/13/2020 08:26:00 AM EST [facility] ([facility]) Name Value Range Interpretation Code Description Data Jeri rce(s) Supporting Document(s) Thyroxine (T4) free [Mass/volume] in Serum or Plasma 0.85 ng/dL 0.76- 1.46 [facility] ([facility]) ID Date Data Source [id number] 05/13/2020 08:25:00 AM EST [facility] ([facility]) Name Value Range Interpretation Code Description Data Jeri rce(s) Supporting Document(s) Thyrotropin [Units/volume] in Serum or Plasma by Detec tion limit <= 0.05 mIU/L 4.91 uIU/mL 0.36-3.74 [facility] ([facility] ) ID Date Data Source [id number] 05/13/2020 08:25:00 AM EST [facility] ([facility]) Name Value Range Interpretation Code Description Data Jeri rce(s) Supporting Document(s) Cholesterol [Mass/volume] in Serum or Plasma 213 mg/dL 131-200 [facility] ([facility]) Cholesterol in HDL [Mass/volume] in Serum or Plasma 54 mg/dL 35-60 [facility] ([facility]) Triglyceride [Mass/volume] in Serum or Plasma 249 mg/dL 30-150 [facility] ([facility]) Cholesterol in LDL [Mass/volume] in Serum or Plasma by calcu lation 109 CALC 50-159 [facility] ([facility]) ID Date Data Source [id number] 05/13/2020 08:25:00 AM EST [facility] ([facility]) Name Value Range Interpretation Code Description Data Jeri rce(s) Supporting Document(s) Glucose [Mass/volume] in Serum or Plasma 151 mg/dL 74-99 [facility] ([facility]) 100-125 mg/dL PRE-DIABETES/FASTING >126 mg/dL DIABETES/FASTING Urea nitrogen [Mass/volume] in Serum or Plasma 25 mg/dL 7-18 [facility] ([facility]) Sodium [Moles/volume] in Serum or Plasma 141 meq/L 136-145 [facility] ([facility]) Creatinine 2.0 mg/dL 0.6-1.3 [facility] ([facility]) Potassium [Moles/volume] in Serum or Plasma 4.1 meq/L 3.5-5.1 [facility] ([facility]) Chloride [Moles/volume] in Serum or Plasma 102 meq/L 98-107 [facility] ([facility]) Calcium [Mass/volume] in Serum or Plasma 9.0 mg/dL 8.5-10.1 [facility] ([facility]) Carbon dioxide, total [Moles/volume] in Serum or Plasma 33 meq/L 21 -32 [facility] ([facility]) Alkaline phosphatase isoenzyme [Units/volume] in Serum or Pl asma 85 mg/dL 46-116 [facility] ([facility]) Total Bilirubin 1.2 mg/dL 0.2-1.0 [facility] ([facility]) Aspartate aminotransferase [Enzymatic activity/volume] in Serum or Plasma 11 U/L 15-37 [facility] ([facility] ) Albumin [Mass/volume] in Serum or Plasma 3.6 g/dL 3.4-5.0 [facility] ([facility]) Alanine aminotransferase [Enzymatic activity/volume] in Seru m or Plasma 20 U/L 12-78 [facility] ([facility]) Proteinase 3 Ab [Units/volume] in Serum 6.4 g/dL 6.4-8.2 [facility] ([facility]) A/G Ratio 1.29 CALC 1.00-1.90 [facility] Glomerular filtration rate/1.73 sq M pre dicted among non-blacks [Volume Rate/Area] in Serum or Plasma by Creatinine-based formula (MDRD) 32 mL/min [facility] Glomerular filtration rate/1.73 sq M pre dicted among blacks [Volume Rate/Area] in Serum or Plasma by Creatinine-based formula (MDRD) 39 mL/min [facility] ([facility]) <content>CHRONIC KIDNEY DISEASE STAGING PER NKF</content>
<content></content>
<content>STAGE I & II GFR >= 60 NORMAL TO MILDLY DECREASED</content>
<content>STAGE III GFR 30-59 MODERATELY DECREASED</content>
<content>STAGE IV GFR 15-29 SEVERELY DECREASED</content>
<content>STAGE V GFR <15 VERY LITTLE GFR LEFT</content>
<content>ESRD GFR <15 ON ENGINEER TECHNICIAN</content>
<content></content> ID Date Data Source [id number] 05/13/2020 08:25:00 AM EST [facility] ([facility]) Name Value Range Interpretation Code Description Data Jeri rce(s) Supporting Document(s) Magnesium 1.7 mg/dL 1.8-2.4 [facility] ([facility]) ID Date Data Source [id number] 05/13/2020 08:25:00 AM EST [facility] ([facility]) Name Value Range Interpretation Code Description Data Jeri rce(s) Supporting Document(s) Hemoglobin A1c/Hemoglobin.total in Blood 6.5 % [facility] Lab Result Notes: Pre-Diabetes 5.7 - 6.4 % Diabetes = or > 6.5% Glucose mean value [Mass/volume] in Blood Estimated fr om glycated hemoglobin 140 mg/dL 60-110 [facility] ID Date Data Source [id number] 05/13/2020 08:25:00 AM EST [facility] ([facility]) Name Value Range Interpretation Code Description Data Jeri rce(s) Supporting Document(s) Creatine kinase [Enzymatic activity/volume] in Serum or Plasma 48 U /L 39-308 [facility] ([facility]) ID Date Data Source [id number] 05/13/2020 08:25:00 AM EST [facility] ([facility]) Name Value Range Interpretation Code Description Data Jeri rce(s) Supporting Document(s) Erythrocytes [#/volume] in Blood by Automated count 4.89 x10*6/UL 4.2 0-6.30 [facility] ([facility]) Leukocytes [#/volume] in Blood by Automated count 7.9 x10*3/UL 4.1-10 .9 [facility] ([facility]) Hemoglobin [Mass/volume] in Blood 14.1 g/dL 12.0-18.0 [facility] ([facility]) MCV 84.5 fL 80.0-97.0 [facility] Hematocrit [Volume Fraction] of Blood by Automated count 41.3 % 3 7.0-51.0 [facility] ([facility]) MCHC 34.1 g/dL 31.0-38.0 [facility] MCH 28.8 pg 26.0-32.0 [facility] Erythrocyte distribution width [Ratio] by Automated count 13.1 % 11.6-13.7 [facility] ([facility]) Platelets [#/volume] in Blood by Automated count 241 x10*3/UL 140-440 [facility] ([facility]) MPV 8.3 FL 7.8-11.0 [facility] Lymph % 28.1 % 10.0-58.5 [facility] Neut % 65.7 % 37.0-92.0 [facility] Mid % 6.2 % 1.7-9.3 [facility] Lymph # 2.2 x10*3/UL 0.6-4.1 [facility] ([facility]) Mid # 0.5 x10*3/UL 0.1-0.6 [facility] ([facility]) Neut # 5.2 x10*3/UL 2.0-7.8 [facility] ([facility]) ID Date Data Source [id number] 05/13/2020 08:25:00 AM EST [facility] ([facility]) Name Value Range Interpretation Code Description Data Jeri rce(s) Supporting Document(s) Thyrotropin [Units/volume] in Serum or Plasma by Detec tion limit <= 0.05 mIU/L 4.91 uIU/mL 0.36-3.74 [facility] ([facility]) ID Date Data Source [id number] 05/13/2020 08:25:00 AM EST [facility] ([facility]) Name Value Range Interpretation Code Description Data Jeri rce(s) Supporting Document(s) Cholesterol in HDL [Mass/volume] in Serum or Plasma 54 mg/dL 35-60 [facility] ([facility]) Cholesterol [Mass/volume] in Serum or Plasma 213 mg/dL 131-200 [facility] ([facility]) Triglyceride [Mass/volume] in Serum or Plasma 249 mg/dL 30-150 [facility] ([facility]) Cholesterol in LDL [Mass/volume] in Serum or Plasma by calcu lation 109 CALC 50-159 [facility] ([facility]) ID Date Data Source [id number] 05/13/2020 08:25:00 AM EST [facility] ([facility]) Name Value Range Interpretation Code Description Data Jeri rce(s) Supporting Document(s) Urea nitrogen [Mass/volume] in Serum or Plasma 25 mg/dL 7-18 [facility] ([facility]) Creatinine [Mass/volume] in Serum or Plasma 2.0 mg/dL 0.6-1.3 [facility] ([facility]) Glucose [Mass/volume] in Serum or Plasma 151 mg/dL 74-99 [facility] ([facility]) 100-125 mg/dL PRE-DIABETES/FASTING >126 mg/dL DIABETES/FASTING Potassium [Moles/volume] in Serum or Plasma 4.1 meq/L 3.5-5.1 [facility] ([facility]) Chloride [Moles/volume] in Serum or Plasma 102 meq/L 98-107 [facility] ([facility]) Sodium [Moles/volume] in Serum or Plasma 141 meq/L 136-145 [facility] ([facility]) Alkaline phosphatase isoenzyme [Units/volume] in Serum or Pl asma 85 mg/dL 46-116 [facility] ([facility]) Calcium [Mass/volume] in Serum or Plasma 9.0 mg/dL 8.5-10.1 [facility] ([facility]) Carbon dioxide, total [Moles/volume] in Serum or Plasma 33 meq/L 21 -32 [facility] ([facility]) Total Bilirubin 1.2 mg/dL 0.2-1.0 [facility] ([facility]) Aspartate aminotransferase [Enzymatic activity/volume] in Serum or Plasma 11 U/L 15-37 [facility] ([facility]) Alanine aminotransferase [Enzymatic activity/volume] in Seru m or Plasma 20 U/L 12-78 [facility] ([facility]) Albumin/Globulin [Mass Ratio] in Serum or Plasma 1.29 CALC 1.00-1.90 [facility] ([facility]) Proteinase 3 Ab [Units/volume] in Serum 6.4 g/dL 6.4-8.2 [facility] ([facility]) Albumin [Mass/volume] in Serum or Plasma 3.6 g/dL 3.4-5.0 [facility] ([facility]) Glomerular filtration rate/1.73 sq M pre dicted among blacks [Volume Rate/Area] in Serum or Plasma by Creatinine-based formula (MDRD) 39 mL/min [facility] ([facility]) <content>CHRONIC KIDNEY DISEASE STAGING PER NKF</content>
<content></content>
<content>STAGE I & II GFR >= 60 NORMAL TO MILDLY DECREASED</content>
<content>STAGE III GFR 30-59 MODERATELY DECREASED</content>
<content>STAGE IV GFR 15-29 SEVERELY DECREASED</content>
<content>STAGE V GFR <15 VERY LITTLE GFR LEFT</content>
<content>ESRD GFR <15 ON ENGINEER TECHNICIAN</content>
<content></content>
<content></content> Glomerular filtration rate/1.73 sq M pre dicted among non-blacks [Volume Rate/Area] in Serum or Plasma by Creatinine-based formula (MDRD) 32 mL/min [facility] ([facility]) ID Date Data Source [id number] 05/13/2020 08:25:00 AM EST [facility] ([facility]) Name Value Range Interpretation Code Description Data Jeri rce(s) Supporting Document(s) Magnesium 1.7 mg/dL 1.8-2.4 [facility] ([facility] ID Date Data Source [id number] 05/13/2020 08:25:00 AM EST [facility] ([facility]) Name Value Range Interpretation Code Description Data Jeri rce(s) Supporting Document(s) Creatine kinase [Enzymatic activity/volume] in Serum or Plasma 48 U /L 39-308 [facility] ([facility]) ID Date Data Source [id number] 05/13/2020 08:25:00 AM EST [facility] ([facility]) Name Value Range Interpretation Code Description Data Jeri rce(s) Supporting Document(s) Hemoglobin A1c/Hemoglobin.total in Blood 6.5 % [facility] Lab Result Notes: Pre-Diabetes 5.7 - 6.4 % Diabetes = or > 6.5% Glucose mean value [Mass/volume] in Blood Estimated fr om glycated hemoglobin 140 mg/dL 60-110 [facility] ([facility]) ID Date Data Source [id number] 05/13/2020 08:25:00 AM EST [facility] ([facility]) Name Value Range Interpretation Code Description Data Jeri rce(s) Supporting Document(s) Leukocytes [#/volume] in Blood by Automated count 7.9 x10*3/UL 4.1-10 .9 [facility] ([facility]) Erythrocytes [#/volume] in Blood by Automated count 4.89 x10*6/UL 4.2 0-6.30 [facility] ([facility]) MCV 84.5 fL 80.0-97.0 [facility] ([facility] [facility]) Hematocrit [Volume Fraction] of Blood by Automated count 41.3 % 3 7.0-51.0 [facility] ([facility]) Hemoglobin [Mass/volume] in Blood 14.1 g/dL 12.0-18.0 [facility] ([facility]) Platelets [#/volume] in Blood by Automated count 241 x10*3/UL 140-440 [facility] ([facility]) MCH 28.8 pg 26.0-32.0 [facility] ([facility]) MCHC 34.1 g/dL 31.0-38.0 [facility] ([facility]) Erythrocyte distribution width [Ratio] by Automated count 13.1 % 11.6-13.7 [facility] ([facility]) Mid % 6.2 % 1.7-9.3 [facility] ([facility]) Lymphocytes/100 leukocytes in Blood by Automated count 28.1 % 10. 0-58.5 [facility] ([facility]) Platelet mean volume [Entitic volume] in Blood by Mick 8.3 FL 7.8-11.0 [facility] ([facility]) Lymph # 2.2 x10*3/UL 0.6-4.1 [facility] ([facility]) Neut % 65.7 % 37.0-92.0 [facility] ([facility]) Mid # 0.5 x10*3/UL 0.1-0.6 [facility] ([facility]) Neutrophils [#/volume] in Semen by Manual count 5.2 x10*3/UL 2.0-7.8 [facility] ([facility]) ID Date Data Source [id number] 03/19/2020 12:18:00 PM EST [facility] ([facility]) Name Value Range Interpretation Code Description Data Jeri rce(s) Supporting Document(s) Glomerular Filtration Rate 35.4 MED ENT ([facility]) <content>Units are mL/min/1.73 m2</content>
<content></content>
<content>Chronic Kidney Disease Staging per NKF:</content>
<content></content>
<content>Stage I & II GFR >=60 Normal to Mildly Decreased</content>
<content>Stage III GFR 30- 59 Moderately Decreased</content>
<content>Stage IV GFR 15-29 Severely Decreased</content>
<content>Stage V GFR <15 Very Little GFR Left</content>
<content>ESRD GFR <15 on ENGINEER TECHNICIAN</content>
<content></content> Creatinine For GFR 1.94 mg/dL 0.70-1.30 [facility] ([facility]) ID Date Data Source [id number] 03/19/2020 12:18:00 PM EST [facility] ([facility]) Name Value Range Interpretation Code Description Data Jeri rce(s) Supporting Document(s) Urea nitrogen [Mass/volume] in Serum or Plasma 37 mg/dL 7-18 [facility] ([facility]) ID Date Data Source [id number] 03/19/2020 12:18:00 PM EST MED[facility] ([facility]) Name Value Range Interpretation Code Description Data Jeri rce(s) Supporting Document(s) Creatinine For GFR 1.94 mg/dL 0.70-1.30 Above high normal [facility] ([facility]) Glomerular Filtration Rate 35.4 Normal (applies to n on-numeric results) [facility] ([facility]) <content>Units are mL/min/1.73 m2</content>
<content></content>
<content>Chronic Kidney Disease Staging per NKF:</content>
<content></content>
<content>Stage I & II GFR >=60 Normal to Mildly Decreased</content>
<content>Stage III GFR 30- 59 Moderately Decreased</content>
<content>Stage IV GFR 15-29 Severely Decreased</content>
<content>Stage V GFR <15 Very Little GFR Left</content>
<content>ESRD GFR <15 on ENGINEER TECHNICIAN</content>
<content></content> ID Date Data Source [id number] 03/19/2020 12:18:00 PM EST MED[facility] ([facility]) Name Value Range Interpretation Code Description Data Jeri rce(s) Supporting Document(s) Urea nitrogen [Mass/volume] in Serum or Plasma 37 mg/dL 7-18 Above high normal [facility] ([facility]) ID Date Data Source [id number] 02/12/2020 12:00:[address] [facility] Tanika Loving MD Patient Name: KINGSLEY [id number] [facility] Date of : Floor Date of Exam: 02/12/2020PRATIMA Flores [id number]#: Fax: [phone] EXAM: UGI AIR CONTRAST WITH KUBCLINICAL INFORMATION: Dysphagia.The procedure was performed by David Hutchinson [facility], under the generalsupervision of Dr. Salter. All images were reviewed with Dr. Salter atthe time of this dictation.The funeral arrangement director films shows no organomegaly or pathological masses. There aresurgical clips noted in the right upper quadrant and right abdomen.Liquid barium was given in the erect and prone oblique positions in orderto perform a single contrast upper GI examination.The oral and pharyngeal stages of deglutition appeared unremarkable.Esophageal transport was prompt and efficient and there was no esophagitis,stricture or mucosal ring. There is a sliding-type hiatal hernia. Thereis deviation of the upper esophagus. This is likely due to a markedlyenlarged thyroid which was seen on a previous CT scan dated 09/27/2019.This is unchanged.The stomach schaefer were normally outlined. The rugal folds were smooth andregular. There was no gastritis, neoplasm, or ulcer disease.In the duodenum, there are thickened folds which likely representduodenitis. There is no radha ulcer identified. 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 There is a sliding-type hiatal hernia.2. There are thickened folds in the duodenum which likely representsduodenitis. There is no radha ulcer identified.3. 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 Salter.Fluoroscopy time was minutes 3 seconds at 15 pulses/second. This is equalto 42 seconds continuous fluoroscopy time which is a 33% reduction inradiation.SIMEON Vazquez/[place] you for referring KINGSLEY WOMACK to our office. Electronically Signed - BEVERLY SALTER DO 02/13/20 16:08 Name Value Range Interpretation Code Description Data Jeri rce(s) Supporting Document(s) ID Date Data Source [id number] 02/05/2020 10:23:00 AM EDT [facility]) Name Value Range Interpretation Code Description Data Jeri rce(s) Supporting Document(s) Hemoglobin A1c/Hemoglobin.total in Blood 7.1 % [facility] ([facility]) Lab Result Notes: Pre-Diabetes 5.7 - 6.4 % Diabetes = or > 6.5% Glucose mean value [Mass/volume] in Blood Estimated fr om glycated hemoglobin 157 mg/dL 60-110 [facility] ([facility] ) Procedure Social History Code Duration Value Status Description Data Source(s ) Smoking 06/25/2020 12:00:00 AM EST Patient is a former smoker completed Patient is a former smoker [facility] ([facility], ) Smoking 05/22/2020 12:00:00 AM EST Patient is a former smoker completed Patient is a former smoker [facility] ([facility]) Vital Signs ID Date Data Source UNK Name Value Range Interpretation Code Description Data Source(s) Systolic blood pressure 140 mm[Hg] 140 mm[Hg] M EDENT ([facility]) Heart rate 56 /min 56 /min [facility] ([facility]) Body height 70.5 [in_i] 70.5 [in_i] [facility] ([facility]) 5'10.50" Body weight 212.00 [lb_av] 212.00 [lb_av] MEDEN ([facility]) Body mass index (BMI) [Ratio] 30.0 kg/m2 30.0 k g/m2 [facility] ([facility]) Diastolic blood pressure 80 mm[Hg] 80 mm[Hg] [facility] ([facility]) Diastolic blood pressure 80 mm[Hg] 80 mm[Hg] [facility] ([facility]) Systolic blood pressure 144 mm[Hg] 144 mm[Hg] [facility] Body mass index (BMI) [Ratio] 28.9 kg/m2 28.9 k g/m2 [facility] ([facility] ) [place] body weight 166 [lb_av] 166 [lb_av] MEDEN T ([facility]) Respiratory rate 12 /min 12 /min [facility] ( [facility]) Body height 70.5 [in_i] 70.5 [in_i] [facility] ([facility], ) 50" Body weight 204.00 [lb_av] 204.00 [lb_av] MEDEN T ([facility]) Systolic blood pressure 120 mm[Hg] 120 mm[Hg] [facility] ([facility]) Diastolic blood pressure 72 mm[Hg] 72 mm[Hg] [facility] ([facility]) Body weight 209.00 [lb_av] 209.00 [lb_av] MEDEN T ([facility]) Body height 71 [in_i] 71 [in_i] [facility] ([facility]) 5'11" Body mass index (BMI) [Ratio] 29.1 kg/m2 29.1 k g/m2 [facility] ([facility]) Systolic blood pressure 150 mm[Hg] 150 mm[Hg] [facility] Diastolic blood pressure 80 mm[Hg] 80 mm[Hg] [facility] ([facility]) Systolic blood pressure 144 mm[Hg] 144 mm[Hg] [facility] Body height 70.5 [in_i] 70.5 [in_i] [facility] ([facility]) .50" Diastolic blood pressure 80 mm[Hg] 80 mm[Hg] [facility] ([facility]) Heart rate 54 /min 54 /min [facility] ([facility]) Body weight 210.00 [lb_av] 210.00 [lb_av] MEDEN T ([facility]) Body mass index (BMI) [Ratio] 29.7 kg/m2 29.7 k g/m2 [facility] ([facility]) Diastolic blood pressure 90 mm[Hg] 90 mm[Hg] [facility] ([facility]) Heart rate 48 /min 48 /min [facility] ([facility]) Body weight 210.38 [lb_av] 210.38 [lb_av] MEDEN T ([facility]) Systolic blood pressure 146 mm[Hg] 146 mm[Hg] M EDENT ([facility]) RT Arm Diastolic blood pressure 82 mm[Hg] 82 mm[Hg] [facility] ([facility]) RT Arm Systolic blood pressure 160 mm[Hg] 160 mm[Hg] M EDENT ([facility]) Body height 70.5 [in_i] 70.5 [in_i] [facility] ([facility]) 5'10.50" Body mass index (BMI) [Ratio] 29.8 kg/m2 29.8 k g/m2 [facility] ([facility]) Systolic blood pressure 140 mm[Hg] 140 mm[Hg] M EDENT ([facility] ) Diastolic blood pressure 82 mm[Hg] 82 mm[Hg] [facility] ([facility]) Heart rate 49 /min 49 /min [facility] ([facility] ) Body temperature 97.5 [degF] 97.5 [degF] [facility] ([facility] ) Body height 70 [in_i] 70 [in_i] [facility] ([facility] ) 5'10" Body weight 206.38 [lb_av] 206.38 [lb_av] MEDEN T ([facility] ) Body mass index (BMI) [Ratio] 29.6 kg/m2 29.6 k g/m2 [facility] ([facility] ) Oxygen saturation in Arterial blood by Pulse oximetry 98 % 98 % [facility] ([facility] ) Systolic blood pressure 130 mm[Hg] 130 mm[Hg] M EDENT ([facility], ) Diastolic blood pressure 80 mm[Hg] 80 mm[Hg] [facility] ([facility], ) Heart rate 46 /min 46 /min [facility] ([facility]) Oxygen saturation in Arterial blood by Pulse oximetry 99 % 99 % [facility] ([facility]) Body temperature 95.0 [degF] 95.0 [degF] [facility]) Body height 69 [in_i] 69 [in_i] [facility]) 5'9" Body weight 209.00 [lb_av] 209.00 [lb_av] MEDEN T ([facility]) Body mass index (BMI) [Ratio] 30.9 kg/m2 30.9 k g/m2 [facility] Thorndike body weight 160 [lb_av] 160 [lb_av] MEDEN T ([facility]) Body weight 94.802 kg 94.802 kg [facility] ([facility]) Body surface area Derived from formula 2.11 m2 2.11 m2 [facility] ([facility]) Heart rate 52 /min 52 /min [facility] ([facility]) Body weight 205.50 [lb_av] 205.50 [lb_av] MEDEN T ([facility]) Oxygen saturation in Arterial blood by Pulse oximetry 98 % 98 % [facility] ([facility]) Air Body height 70.5 [in_i] 70.5 [in_i] [facility] ([facility]) 5'10.50" Body mass index (BMI) [Ratio] 29.1 kg/m2 29.1 k g/m2 [facility] ([facility]) Diastolic blood pressure 70 mm[Hg] 70 mm[Hg] [facility] ([facility]) Systolic blood pressure 140 mm[Hg] 140 mm[Hg] M EDENT ([facility]) Systolic blood pressure 120 mm[Hg] 120 mm[Hg] [facility] Diastolic blood pressure 68 mm[Hg] 68 mm[Hg] [facility] Heart rate 54 /min 54 /min [facility] Body temperature 97.0 [degF] 97.0 [degF] [facility] ([facility]) Body height 70 [in_i] 70 [in_i] [facility] ([facility]) 5'10" Body weight 210.00 [lb_av] 210.00 [lb_av] MEDEN T ([facility]) Body mass index (BMI) [Ratio] 30.1 kg/m2 30.1 k g/m2 [facility] ([facility]) Oxygen saturation in Arterial blood by Pulse oximetry 98 % 98 % [facility] ([facility]) Body weight 209.6 [lb_av] 209.6 [lb_av] eCW1 ([facility]) Body height 72 [in_i] 72 [in_i] eCW1 ([facility]) Body mass index (BMI) [Ratio] 28.42 kg/m2 28.42 kg/m2 [facility] Systolic blood pressure 140 mm[Hg] 140 mm[Hg] e CW1 ([facility]) Diastolic blood pressure 80 mm[Hg] 80 mm[Hg] eCW1 ([facility]) Body temperature 96.8 [degF] 96.8 [degF] [facility] ([facility]) Body height 70.5 [in_i] 70.5 [in_i] [facility] ([facility], ) 5'10.50" Body weight 207.00 [lb_av] 207.00 [lb_av] MEDEN T ([facility], ) Body mass index (BMI) [Ratio] 29.3 kg/m2 29.3 k g/m2 [facility] ([facility], ) Thorn[place]ike body weight 166 [lb_av] 166 [lb_av] MEDEN T ([facility], ) Body weight 93.895 kg 93.895 kg [facility] ([facility]) Body surface area Derived from formula 2.13 m2 2.13 m2 [facility] ) Systolic blood pressure 154 mm[Hg] 154 mm[Hg] M EDENT ([facility], ) Body surface area Derived from formula 2.13 m2 2.13 m2 [facility] ([facility], ) Diastolic blood pressure 82 mm[Hg] 82 mm[Hg] [facility] ([facility], ) Body height 70.5 [in_i] 70.5 [in_i] MED[facility] ([facility]) 510.50" Body weight 207.00 [lb_av] 207.00 [lb_av] MEDEN T ([facility]) Body mass index (BMI) [Ratio] 29.3 kg/m2 29.3 k g/m2 [facility] ([facility]) [place] body weight 166 [lb_av] 166 [lb_av] MEDEN T ([facility]) Body weight 93.895 kg 93.895 kg [facility]) Body height 71 [in_i] 71 [in_i] [facility] ([facility]) 5'11" Body weight 212.00 [lb_av] 212.00 [lb_av] MEDEN T ([facility]) Body mass index (BMI) [Ratio] 29.6 kg/m2 29.6 k g/m2 [facility] ([facility]) [place] body weight 172 [lb_av] 172 [lb_av] MEDEN T ([facility]) Body weight 96.163 kg 96.163 kg [facility] ([facility]) Body surface area Derived from formula 2.16 m2 2.16 m2 [facility] ([facility]) Body weight 204.00 [lb_av] 204.00 [lb_av] MEDEN T ([facility]) Respiratory rate 12 /min 12 /min [facility] ( [facility]) Body height 70.5 [in_i] 70.5 [in_i] [facility] ([facility]) 510.50" Body mass index (BMI) [Ratio] 28.9 kg/m2 28.9 k g/m2 [facility] ([facility]) [place] body weight 166 [lb_av] 166 [lb_av] MEDEN T ([facility]) Body weight 95.710 kg 95.710 kg [facility] ([facility]) Body surface area Derived from formula 2.11 m2 2.11 m2 [facility] ([facility]) Systolic blood pressure 160 mm[Hg] 160 mm[Hg] M EDENT ([facility], ) Diastolic blood pressure 90 mm[Hg] 90 mm[Hg] [facility] ([facility]) Heart rate 51 /min 51 /min [facility] Oxygen saturation in Arterial blood by Pulse oximetry 97 % 97 % [facility] Body height 69 [in_i] 69 [in_i] [facility] ([facility]) 5'9" Body weight 211.00 [lb_av] 211.00 [lb_av] MEDEN T ([facility]) Body mass index (BMI) [Ratio] 31.2 kg/m2 31.2 k g/m2 [facility] ([facility]) [place] body weight 160 [lb_av] 160 [lb_av] MEDEN T ([facility]) Heart rate 44 /min 44 /min [facility] ([facility]) Systolic blood pressure 148 mm[Hg] 148 mm[Hg] M EDENT ([facility]) RT Arm Diastolic blood pressure 68 mm[Hg] 68 mm[Hg] [facility] ([facility]) RT Arm Systolic blood pressure 144 mm[Hg] 144 mm[Hg] M EDENT ([facility]) Diastolic blood pressure 60 mm[Hg] 60 mm[Hg] [facility] ([facility]) Body height 70.5 [in_i] 70.5 [in_i] [facility] ([facility]) 5'10.50" Body weight 213.00 [lb_av] 213.00 [lb_av] MEDEN T ([facility]) Body mass index (BMI) [Ratio] 30.1 kg/m2 30.1 k g/m2 [facility] ([facility]) Heart rate 44 /min 44 /min [facility] ([facility]) Oxygen saturation in Arterial blood by Pulse oximetry 98 % 98 % [facility] ([facility]) Body temperature 97.2 [degF] 97.2 [degF] [facility]) Body height 69 [in_i] 69 [in_i] [facility] ([facility]) 5'9" Body mass index (BMI) [Ratio] 30.0 kg/m2 30.0 k g/m2 [facility] ([facility]) [place] body weight 160 [lb_av] 160 [lb_av] MEDEN T ([facility]) Body weight 92.081 kg 92.081 kg [facility] ([facility]) Body weight 203.00 [lb_av] 203.00 [lb_av] MEDEN T ([facility]) Systolic blood pressure 132 mm[Hg] 132 mm[Hg] M [facility] ([facility]) Diastolic blood pressure 70 mm[Hg] 70 mm[Hg] [facility]) Systolic blood pressure 140 mm[Hg] 140 mm[Hg] M [facility] ([facility]) Diastolic blood pressure 70 mm[Hg] 70 mm[Hg] [facility]) Body height 70.5 [in_i] 70.5 [in_i] [facility]) .50" Oxygen saturation in Arterial blood by Pulse oximetry 97 % 97 % [facility] ([facility]) Systolic blood pressure 150 mm[Hg] 150 mm[Hg] M [facility] ([facility]) Diastolic blood pressure 74 mm[Hg] 74 mm[Hg] [facility]) Heart rate 50 /min 50 /min [facility]) Body weight 214.00 [lb_av] 214.00 [lb_av] MEDEN T ([facility]) Body mass index (BMI) [Ratio] 30.3 kg/m2 30.3 k g/m2 [facility] ([facility]) Body weight 214.00 [lb_av] 214.00 [lb_av] MEDEN T ([facility]) Heart rate 50 /min 50 /min [facility] Body height 70.5 [in_i] 70.5 [in_i] [facility] ([facility]) 510.50" Oxygen saturation in Arterial blood by Pulse oximetry 97 % 97 % [facility] ([facility]) Body mass index (BMI) [Ratio] 30.3 kg/m2 30.3 k g/m2 [facility]) Heart rate 53 /min 53 /min [facility] Diastolic blood pressure 64 mm[Hg] 64 mm[Hg] MEDYUE ([facility]) Body weight 211.00 [lb_av] 211.00 [lb_av] LAYLA T ([facility]) Body height 70.5 [in_i] 70.5 [in_i] EVA ([facility]) 5'10.50" Oxygen saturation in Arterial blood by Pulse oximetry 97 % 97 % EVA ([facility]) Body mass index (BMI) [Ratio] 29.8 kg/m2 29.8 k g/m2 [facility] Systolic blood pressure 108 mm[Hg] 108 mm[Hg] M [place] ([facility])
[2021-02-14] MEDS ORDERED: BOOSTRIX/ADACEL VACCINE (DIPHTH/PERTUSS/ACELL/TETANUS) 0.5ML SYR IM ONE (17:55)
--- NOTE | 2021-02-14 17:59 | REPVR ---
PROCEDURE INFORMATION: Exam: CT Head Without Contrast Exam date and time: 02/14/2021 5:01 PM Age: 85 years old Clinical indication: Injury or trauma; Fall; Blunt trauma (contusions or hematomas) TECHNIQUE: Imaging protocol: Computed tomography of the head without contrast. Radiation optimization: All CT scans at this facility use at least one of these dose optimization techniques: automated exposure control; mA and/or kV adjustment per patient size (includes targeted exams where dose is matched to clinical indication); or iterative reconstruction. COMPARISON: CT Spine,cervical w/o contrast 02/14/2021 4:58 PM FINDINGS: Brain: Mild nonspecific hypodensities of the periventricular and deep subcortical white matter, most likely secondary to chronic small vessel ischemic change. No intracranial hemorrhage or extra-axial fluid collection. No evidence of mass effect or midline shift. Clements-white matter differentiation is normal. Cerebral ventricles: Mild prominence of the ventricles and sulci, most likely attributed to parenchymal volume loss. Paranasal sinuses: Visualized sinuses are unremarkable. No fluid levels. Mastoid air cells: Unremarkable. Bones/joints: No acute osseus lesion or fracture. Soft tissues: Unremarkable. IMPRESSION: 1. No acute intracranial pathology. 2. Other chronic findings, as above. Electronically signed by: Heber Brenner On 02/14/2021 17:59:39 PM
--- NOTE | 2021-02-14 18:03 | REPVR ---
PROCEDURE INFORMATION: Exam: CT Cervical Spine Without Contrast Exam date and time: 02/14/2021 5:01 PM Age: 85 years old Clinical indication: Injury or trauma; Fall; Blunt trauma TECHNIQUE: Imaging protocol: Computed tomography images of the cervical spine without contrast. Radiation optimization: All CT scans at this facility use at least one of these dose optimization techniques: automated exposure control; mA and/or kV adjustment per patient size (includes targeted exams where dose is matched to clinical indication); or iterative reconstruction. COMPARISON: CT Neck with contrast 03/24/2020 9:40 AM FINDINGS: Bones/joints: Vertebral body heights are maintained. No locked or perched facets. Multilevel facet arthropathy. No acute cervical spine fracture. The dens is intact. Atlanto-axial intervals are normal. Discs/Spinal canal/Neural foramina: Multilevel degenerative changes with intervertebral disc height loss and osteophyte formation, with multilevel areas of mild canal stenosis. Thyroid: Severe heterogeneous enlargement of the thyroid gland, left greater than right, multiple small calcifications, and associated mass effect and rightward deviation of the adjacent trachea. Lungs: Lung apices are clear. Soft tissues: Unremarkable. IMPRESSION: 1. No acute cervical spine fracture. 2. Severe heterogeneous enlargement of the thyroid gland, left greater than right, multiple small calcifications, and associated mass effect and rightward deviation of the adjacent trachea. Recommend further evaluation with nonemergent thyroid ultrasound. 3. Chronic findings, as above. COMMENTS: Consistent with the [employer]'s Incidental Findings Committee white paper (J Am Tia Radiol 2015): In patients aged 35 years and older with an incidental thyroid nodule equal to or greater than 1.[address], MRI or extrathyroidal US, further evaluation with dedicated thyroid US is recommended for patients with normal life expectancy and without comorbidities. For smaller nodules without suspicious features, no further evaluation or follow up is recommended. Electronically signed by: Heber Brenner On 02/14/2021 18:03:33 PM
[2021-02-14 18:53] VITALS: BP 179/82
== END 2021-02-14 18:55 | disposition home or self-care (01) ==
LOC: EDBD 16:49 → M ED 16:49
DX: S01.81XA Laceration without foreign body of other part of head, initial encounter (principal); S09.90XA Unspecified injury of head, initial encounter; W22.8XXA Striking against or struck by other objects, initial encounter; Y92.009 Unspecified place in unspecified non-institutional (private) residence as the place of occurrence of the external cause; Z23 Encounter for immunization; Y93.9 Activity, unspecified; Y99.9 Unspecified external cause status; I48.91 Unspecified atrial fibrillation; E11.9 Type 2 diabetes mellitus without complications; M25.78 Osteophyte, vertebrae; Z79.01 Long term (current) use of anticoagulants; Z79.899 Other long term (current) drug therapy

== ENCOUNTER → 2021-05-14 | Outpatient (REF) | payer MEDICARE, OTHER ==
[~2021-05-14] MED LIST changes: +LOSA50TA28 PO; -LOSA50TA88 PO
== END ==
LOC: M LAB REF 16:10
PROVIDERS: ATTEND Internal Medicine
DX: C18.0 Malignant neoplasm of cecum (principal)

== ENCOUNTER → 2021-07-27 | Outpatient (CLI) | payer MEDICARE, OTHER | LOC: M RAD 14:41 | PROVIDERS: ATTEND Internal Medicine Pulmonary Disease | DX: R06.00 Dyspnea, unspecified (principal) ==

== ENCOUNTER → 2021-08-12 | Outpatient (REF) | payer MEDICARE, OTHER ==
[2021-08-13 08:10] LABS: LDL DIRECT 120 mg/dL (0-99)
== END ==
LOC: M LAB REF 12:25
PROVIDERS: ATTEND Internal Medicine
DX: E78.00 Pure hypercholesterolemia, unspecified (principal)

== ENCOUNTER → 2021-11-13 | Outpatient (CLI) | payer MEDICARE, BC, OTHER | LOC: M LAB 12:27 | PROVIDERS: ATTEND Psychiatry & Neurology Neurology | DX: M21.379 Foot drop, unspecified foot (principal) ==

== ENCOUNTER → 2021-12-01 | Outpatient (REF) | payer MEDICARE, BC, OTHER | LOC: M LAB REF 12:04 | PROVIDERS: ATTEND Internal Medicine | DX: R06.00 Dyspnea, unspecified (principal) ==

== ENCOUNTER 2021-12-20 23:10 | Emergency (ER) | payer MEDICARE, BC, OTHER ==
[~2021-12-20] VITALS: Ht 180.3 cm; Wt 100.5 kg
[2021-12-20 23:39] LABS: BASO # 0.1 10^3/uL (0.0-0.2); BASO % 0.6 % (0.0-1.0); EOS # 0.1 10^3/uL (0.0-0.5); EOS % 1.7 % (0.0-3.0); HEMATOCRIT 42.3 % (42.0-52.0); HEMOGLOBIN 13.5 g/dl (13.5-17.5); LYMPH # 2.7 10^3/uL (1.5-5.0); LYMPH % 34.8 % (24.0-44.0); MEAN CORPUSCULAR HGB CONC 31.9 g/dl (32.0-36.5); MONO # 0.7 10^3/uL (0.0-0.8); MONO % 8.9 % (2.0-8.0); NEUTROPHILS # 4.1 10^3/uL (1.5-8.5); NEUTROPHILS % 53.6 % (36.0-66.0); PLATELET COUNT, AUTOMATED 221 10^3/uL (150-450); RED BLOOD COUNT 4.65 10^6/uL (4.30-6.10); WHITE BLOOD COUNT 7.7 10^3/uL (4.0-10.0)
[2021-12-20 23:53] LABS: INR 0.96; PROTHROMBIN TIME 13.2 SECONDS (12.7-14.5)
[2021-12-21 00:13] LABS: CK-MB VALUE MASS 3.1 NG/ML (<3.6); MB/CK RELATIVE INDEX 3.23 (< OR =4)
[2021-12-21 00:21] LABS: ALBUMIN 3.3 GM/DL (3.2-5.2); BILIRUBIN,DIRECT 0.2 MG/DL (0.0-0.2); BILIRUBIN,TOTAL 0.6 MG/DL (0.2-1.0); CALCIUM LEVEL 8.9 MG/DL (8.8-10.2); CREATININE FOR GFR 2.17 MG/DL (0.70-1.30); POTASSIUM SERUM 4.1 MEQ/L (3.5-5.1); THYROID STIMULATING HORMONE 0.759 uIU/ML (0.358-3.740); TOTAL PROTEIN 6.6 GM/DL (6.4-8.2)
[2021-12-21] MEDS ORDERED: metFORMIN (GLUCOPHAGE) 1000MG TABLET PO ONE (01:25)
[2021-12-21] MEDS ORDERED: glipiZIDE (GLUCOTROL) 5 MG TAB PO ONE (01:25)
[2021-12-21 01:38] LABS: MB/CK RELATIVE INDEX 3.75 (< OR =4)
[2021-12-21 02:15] VITALS: BP 147/85
== END 2021-12-21 02:56 | disposition home or self-care (01) ==
LOC: M ED 23:10 → EDBD 23:10 → M ED 12-21 02:56
DX: I48.0 Paroxysmal atrial fibrillation (principal); R07.9 Chest pain, unspecified; N17.9 Acute kidney failure, unspecified; E86.0 Dehydration; I44.4 Left anterior fascicular block; E11.9 Type 2 diabetes mellitus without complications; K21.9 Gastro-esophageal reflux disease without esophagitis; I10 Essential (primary) hypertension; E78.5 Hyperlipidemia, unspecified; E03.9 Hypothyroidism, unspecified; Z79.84 Long term (current) use of oral hypoglycemic drugs; Z79.899 Other long term (current) drug therapy

== ENCOUNTER → 2022-01-19 | Outpatient (REF) | payer MEDICARE, BC, OTHER ==
[2022-01-25 19:30] LABS: CREATININE, URINE 77.3 MG/DL; MALB URINE SIEMENS 58.4 MG/L; MAU/CREAT RATIO 75.5 MCG/MG (0.0-30.0)
== END ==
LOC: M LAB REF 16:51
PROVIDERS: ATTEND Internal Medicine Nephrology
DX: E11.22 Type 2 diabetes mellitus with diabetic chronic kidney disease (principal)

== ENCOUNTER → 2022-02-09 | Outpatient (CLI) | payer MEDICARE, BC, OTHER | LOC: M LAB 16:09 | PROVIDERS: ATTEND Internal Medicine Pulmonary Disease | DX: J45.40 Moderate persistent asthma, uncomplicated (principal) ==

== ENCOUNTER 2022-04-02 17:27 | Emergency (ER) | payer MEDICARE, BC, OTHER ==
[~2022-04-02] VITALS: Ht 180.3 cm; Wt 100.0 kg
[2022-04-02 17:49] VITALS: BP 164/80
[2022-04-02 18:24] LABS: BASO % 0.3 % (0.0-1.0); EOS # 0.1 10^3/uL (0.0-0.5); HEMATOCRIT 36.6 % (42.0-52.0); HEMOGLOBIN 11.7 g/dl (13.5-17.5); LYMPH # 1.6 10^3/uL (1.5-5.0); LYMPH % 18.4 % (24.0-44.0); MEAN CORPUSCULAR HEMOGLOBIN 29.6 pg (27.0-33.0); MEAN CORPUSCULAR VOLUME 92.7 fl (80.0-96.0); MONO # 0.6 10^3/uL (0.0-0.8); MONO % 6.8 % (2.0-8.0); NEUTROPHILS # 6.4 10^3/uL (1.5-8.5); PLATELET COUNT, AUTOMATED 176 10^3/uL (150-450); RED BLOOD COUNT 3.95 10^6/uL (4.30-6.10); WHITE BLOOD COUNT 8.7 10^3/uL (4.0-10.0)
[2022-04-02 19:00] LABS: BILIRUBIN,DIRECT < 0.1 MG/DL (<0.4)
[2022-04-02 19:02] LABS: FREE T4 1.23 NG/DL (0.89-1.76)
[2022-04-02 19:03] LABS: THYROID STIMULATING HORMONE 0.219 uIU/ML (0.55-4.78)
[2022-04-02 19:05] LABS: ALBUMIN 3.3 G/DL (3.2-5.2); ALKALINE PHOSPHATASE 74 U/L (46-116); ALT/SGPT 26 U/L (7.0-40); AST/SGOT 40 U/L (<34); BILIRUBIN,TOTAL 0.7 MG/DL (0.3-1.2); BLOOD UREA NITROGEN 51 MG/DL (9-23); CALCIUM LEVEL 8.1 MG/DL (8.3-10.6); CARBON DIOXIDE LEVEL 23 MMOL/L (20-31); CHLORIDE LEVEL 102 MMOL/L (98-107); CK-MB VALUE MASS 3.7 NG/ML (<3.6); CPK CREATINE PHOSPHOKINASE 90 U/L (46-171); CREATININE FOR GFR 1.94 MG/DL (0.70-1.30); GLOMERULAR FILTRATION RATE 35.2 (>35); GLUCOSE, FASTING 397 MG/DL (74-106); LIPASE 68 U/L (12-53); MB/CK RELATIVE INDEX 4.11 (< OR =4); POTASSIUM SERUM 5.1 MMOL/L (3.5-5.1); SODIUM LEVEL 136 MMOL/L (136-145)
[2022-04-02 19:09] LABS: RSV AMPLIFICATION NEGATIVE (NEGATIVE)
[2022-04-02 19:54] LABS: CK-MB VALUE MASS 4.9 NG/ML (<3.6)
[2022-04-02 20:01] LABS: MB/CK RELATIVE INDEX 5.97 (< OR =4)
[2022-04-02] MEDS ORDERED: HEPARIN DRIP 25,000 UNITS in IV 1 EA IV SCH (20:05)
[2022-04-02] MEDS ORDERED: HEPARIN SOD (PORCINE) 5000UNITS/ML 1ML VIAL/SYRINGE IV ONE (20:05)
[2022-04-02 20:42] LABS: PARTIAL THROMBOPLASTIN TIME 26.1 SECONDS (24.8-34.2); PROTHROMBIN TIME 13.4 SECONDS (12.5-14.5)
[2022-04-02] MEDS ORDERED: LOSA100T45 PO (20:42)
[2022-04-02] MEDS ORDERED: HYDR10TAB PO (20:42)
[2022-04-02 22:07] LABS: CK-MB VALUE MASS 5.9 NG/ML (<3.6)
[2022-04-02 22:09] LABS: MB/CK RELATIVE INDEX 5.9 (< OR =4)
== END 2022-04-02 22:11 | disposition short-term general hospital (02) ==
LOC: M ED 17:27
DX: I21.4 Non-ST elevation (NSTEMI) myocardial infarction (principal); I48.0 Paroxysmal atrial fibrillation; I44.4 Left anterior fascicular block; I45.4 Nonspecific intraventricular block; E11.9 Type 2 diabetes mellitus without complications; I10 Essential (primary) hypertension; Z79.01 Long term (current) use of anticoagulants; Z86.79 Personal history of other diseases of the circulatory system; Z79.811 Long term (current) use of aromatase inhibitors; Z79.899 Other long term (current) drug therapy
CPT/HCPCS: 71045; 80048; 80076; 82550; 82553; 83690; 83880; 84439; 84443; 84484; 85025; 85610; 85730; 87631; 93005; 93041; 94760; 96365; 96366; 96375; 99285; J1644

== ENCOUNTER 2022-04-25 17:29 | Inpatient (IN) | payer MEDICARE, BC, OTHER ==
[~2022-04-25 17:29] MED LIST changes: +HYDR10TAB PO; +LOSA100T45 PO
[2022-04-25] MEDS ORDERED: ASPIRIN 81MG CHEW TABLET PO ONE (17:45)
[2022-04-25 17:54] LABS: BASO % 0.4 % (0.0-1.0); EOS # 0.1 10^3/uL (0.0-0.5); EOS % 0.6 % (0.0-3.0); HEMATOCRIT 41.1 % (42.0-52.0); HEMOGLOBIN 13.3 g/dl (13.5-17.5); LYMPH # 1.8 10^3/uL (1.5-5.0); LYMPH % 16.2 % (24.0-44.0); MEAN CORPUSCULAR HEMOGLOBIN 28.7 pg (27.0-33.0); MEAN CORPUSCULAR HGB CONC 32.4 g/dl (32.0-36.5); MEAN CORPUSCULAR VOLUME 88.8 fl (80.0-96.0); MONO # 0.8 10^3/uL (0.0-0.8); MONO % 6.8 % (2.0-8.0); NEUTROPHILS # 8.6 10^3/uL (1.5-8.5); NEUTROPHILS % 75.6 % (36.0-66.0); PLATELET COUNT, AUTOMATED 299 10^3/uL (150-450); RED BLOOD COUNT 4.63 10^6/uL (4.30-6.10); WHITE BLOOD COUNT 11.4 10^3/uL (4.0-10.0)
[2022-04-25] MEDS ORDERED: NITROGLYCERIN 0.4MG SUBL TABLET As Ordered ONE (17:55)
[2022-04-25] MEDS ORDERED: fentaNYL 100 MCG/2 ML INJECTION IV PRN (18:00)
[2022-04-25] MEDS ORDERED: NITROGLYCERIN 0.3MG SUBL TAB SL PRN (18:00)
[2022-04-25] MEDS ORDERED: NS 500 ML IV ONE (18:05)
[2022-04-25] MEDS: NITROGLYCERIN 0.4MG SUBL TABLET SL PRN (18:10)
[2022-04-25 18:36] LABS: ALBUMIN 3.4 G/DL (3.2-5.2); BILIRUBIN,DIRECT 0.1 MG/DL (<0.4); BILIRUBIN,TOTAL 0.5 MG/DL (0.3-1.2); CALCIUM LEVEL 9.6 MG/DL (8.3-10.6); CK-MB VALUE MASS 4.3 NG/ML (<3.6); CREATININE FOR GFR 2.29 MG/DL (0.70-1.30); GLOMERULAR FILTRATION RATE 29.1 (>35); MB/CK RELATIVE INDEX 6.93 (< OR =4); POTASSIUM SERUM 4.1 MMOL/L (3.5-5.1); RSV AMPLIFICATION NEGATIVE (NEGATIVE); TOTAL PROTEIN 6.5 G/DL (5.7-8.2)
[2022-04-25 18:37] LABS: THYROID STIMULATING HORMONE 0.031 uIU/ML (0.55-4.78)
[2022-04-25 18:39] LABS: FREE T4 1.38 NG/DL (0.89-1.76)
[2022-04-25 18:46] LABS: INR 0.97; PROTHROMBIN TIME 13.1 SECONDS (12.5-14.5)
[2022-04-25 18:47] LABS: PARTIAL THROMBOPLASTIN TIME 25.6 SECONDS (24.8-34.2)
[2022-04-25 19:20] LABS: CK-MB VALUE MASS 6.4 NG/ML (<3.6)
[2022-04-25 19:21] LABS: MB/CK RELATIVE INDEX 9.14 (< OR =4)
[2022-04-25] MEDS ORDERED: INSULIN LISPRO (NovoLOG) PER UNIT SC SCH (21:00)
[2022-04-25] MEDS ORDERED: METOPROLOL TART 25 MG TABLET PO ONE (21:15)
[2022-04-25] MEDS ORDERED: ATORVASTATIN 20 MG TAB PO SCH (21:15)
[2022-04-25] MEDS ORDERED: HYDROMORPHONE HCL 0.5 MG/ 0.5 ML SYRINGE (J1170 PER 1) IV PRN (21:15)
[2022-04-25] MEDS ORDERED: NITROGLYCERIN 2% OINT 1 GM *U/D* PKT TOP ONE (21:15)
[2022-04-25] MEDS ORDERED: ACETAMINOPHEN TAB 650MG DOSE (2X325MG) PO PRN (21:15)
[2022-04-25] MEDS ORDERED: GLUCAGON INJ 1MG VIAL SC PRN (21:45)
[2022-04-25] MEDS ORDERED: DEXTROSE 50% 50ML SYRINGE IV PRN (21:45)
[2022-04-25] MEDS ORDERED: GLUCOSE 4GM CHEW TABLET PO PRN (21:45)
[2022-04-25] MEDS ORDERED: GABA-1171 PO (22:06)
[2022-04-25] MEDS ORDERED: ISOS1TAB35 PO (22:06)
[2022-04-25] MEDS ORDERED: PANT40TA29 PO (22:06)
[2022-04-25] MEDS ORDERED: AMLO1TAB24 PO (22:06)
[2022-04-25] MEDS ORDERED: FARX1TAB3 PO (22:06)
[2022-04-25] MEDS ORDERED: PRAV40TA2 PO (22:06)
[2022-04-25] MEDS ORDERED: TIMO0.5S29 OU (22:06)
[2022-04-25] MEDS ORDERED: TRAD5TAB PO (22:06)
[2022-04-25] MEDS ORDERED: CALC1CAP31 PO (22:06)
[2022-04-25] MEDS ORDERED: THERTAB52 PO (22:06)
[2022-04-25] MEDS ORDERED: HYDR-3490 PO (22:06)
[2022-04-25] MEDS ORDERED: DULO1CAP4 PO (22:06)
[2022-04-25] MEDS ORDERED: EQL50TAB2 PO (22:06)
[2022-04-25] MEDS ORDERED: EZET10TA21 PO (22:06)
[2022-04-25] MEDS ORDERED: ALBU8.5H PO (22:06)
[2022-04-25] MEDS ORDERED: BREO1INH3 INH (22:06)
[2022-04-25] MEDS ORDERED: BENZ200C70 PO (22:06)
[2022-04-25] MEDS ORDERED: MAGN400T35 PO (22:06)
[2022-04-25] MEDS ORDERED: COLE625T PO (22:06)
[2022-04-25] MEDS ORDERED: ELIQ2.5T PO (22:06)
[2022-04-25] MEDS ORDERED: CLOP75TA2 PO (22:06)
[2022-04-25] MEDS ORDERED: LISI5TAB11 PO (22:06)
[2022-04-25] MEDS ORDERED: GLIP5TAB8 PO (22:06)
[2022-04-25] MEDS ORDERED: MEMA10TA19 PO (22:06)
[2022-04-25] MEDS ORDERED: HOME MED LIST COMPLETE! XX SCH (22:10)
[2022-04-25 22:32] LABS: CK-MB VALUE MASS 15.2 NG/ML (<3.6)
[2022-04-25 22:38] LABS: MB/CK RELATIVE INDEX 11.09 (< OR =4)
[2022-04-26] MEDS ORDERED: ALBUTEROL 90 MCG/ACT 8GM HFA INHALER INH PRN (06:25)
[2022-04-26 07:34] LABS: ALBUMIN 3.1 G/DL (3.2-5.2); BILIRUBIN,TOTAL 0.7 MG/DL (0.3-1.2); CALCIUM LEVEL 8.8 MG/DL (8.3-10.6); CREATININE FOR GFR 2.12 MG/DL (0.70-1.30); GLOMERULAR FILTRATION RATE 31.8 (>35); POTASSIUM SERUM 4.7 MMOL/L (3.5-5.1); TOTAL PROTEIN 5.6 G/DL (5.7-8.2)
[2022-04-26 08:43] VITALS: BP 134/70
[2022-04-26] MEDS: INSULIN LISPRO (NovoLOG) PER UNIT SC SCH ×2 (08:43→13:15)
[2022-04-26] MEDS: TIMOLOL MALEATE 0.5% OPHTH SOLN 5 ML OU SCH ×2 (08:46→21:05)
[2022-04-26] MEDS ORDERED: ASPIRIN 81MG CHEW TABLET PO SCH (09:00)
[2022-04-26] MEDS ORDERED: GABAPENTIN 100 MG CAP PO SCH (09:00)
[2022-04-26] MEDS ORDERED: lisinopriL 5 MG TAB PO SCH (09:00)
[2022-04-26] MEDS ORDERED: **hydrALAZINE** 10 MG TAB PO SCH (09:00)
[2022-04-26] MEDS ORDERED: DULoxetine 20MG CAP (CYMBALTA) PO SCH (09:00)
[2022-04-26] MEDS ORDERED: COLESEVELAM 625 MG TAB (WELCHOL) PO SCH (09:00)
[2022-04-26] MEDS ORDERED: amLODIPine 5 MG TAB PO SCH (09:00)
[2022-04-26] MEDS ORDERED: PANTOPRAZOLE 40MG TAB (PROTONIX) PO SCH (09:00)
[2022-04-26] MEDS ORDERED: ISOSORBIDE MON. (IMDUR) 30MG XR TAB PO SCH (09:00)
[2022-04-26] MEDS ORDERED: APIXABAN 2.5 MG TAB (ELIQUIS) PO SCH (09:00)
[2022-04-26] MEDS ORDERED: METOPROLOL TART 25 MG TABLET PO SCH (09:00)
[2022-04-26] MEDS ORDERED: DAPAGLIFLOZIN PROPANEDIOL 10MG TABLET (FARXIGA) PO SCH (09:00)
[2022-04-26] MEDS ORDERED: CLOPIDOGREL 75 MG TAB PO SCH (09:00)
[2022-04-26] MEDS ORDERED: PRAVASTATIN 20 MG TAB PO SCH (09:00)
[2022-04-26 09:05] VITALS: BP 134/70
[2022-04-26] MEDS ORDERED: MORPHINE SULFATE ORAL SOLN 10 MG/5 ML UD SL PRN (13:10)
[2022-04-26] MEDS ORDERED: SCOPOLAMINE 1MG TRANSDERMAL PATCH TOP PRN (13:10)
[2022-04-26] MEDS ORDERED: EZETIMIBE 10MG TABLET (ZETIA) PO SCH (21:00)
[2022-04-27] MEDS: MORPHINE SULFATE ORAL SOLN 10 MG/5 ML UD SL PRN (12:31)
[2022-04-27] MEDS: LORazepam 1 MG TAB PO PRN (12:31)
[2022-04-27] MEDS: TIMOLOL MALEATE 0.5% OPHTH SOLN 5 ML OU SCH ×2 (12:47→20:12)
[2022-04-27 13:38] VITALS: BP 134/63
[2022-04-27] MEDS: FLUTICASONE PROP 0.05% NASAL SPRAY 16 GM (FLONASE) NARES SCH (20:12)
[2022-04-27] MEDS: NITROGLYCERIN 0.4MG SUBL TABLET SL PRN (20:44)
[2022-04-27] MEDS ORDERED: MORPHINE 4 MG/ML 1ML VIAL IV ONE (20:45)
[2022-04-27] MEDS ORDERED: NITROGLYCERIN 2% OINT 1 GM *U/D* PKT TOP ONE (20:45)
[2022-04-27] MEDS ORDERED: diphenhydrAMINE 50MG/ML VIAL IV ONE (22:00)
[2022-04-28] MEDS: FLUTICASONE PROP 0.05% NASAL SPRAY 16 GM (FLONASE) NARES SCH ×2 (09:00→21:00)
[2022-04-28] MEDS: TIMOLOL MALEATE 0.5% OPHTH SOLN 5 ML OU SCH ×2 (09:00→21:00)
[2022-04-28] MEDS: diphenhydrAMINE 25MG CAP PO PRN ×2 (11:19→18:35)
[2022-04-28] MEDS: MORPHINE SULFATE ORAL SOLN 10 MG/5 ML UD SL PRN ×2 (14:39→17:04)
[2022-04-28] MEDS: NITROGLYCERIN 0.4MG SUBL TABLET SL PRN ×4 (14:39→18:46)
[2022-04-28] MEDS: LORazepam 1 MG TAB PO PRN (14:39)
[2022-04-28] MEDS ORDERED: NITROGLYCERIN 2% OINT 1 GM *U/D* PKT TOP ONE (14:45)
[2022-04-28] MEDS: MORPHINE 4 MG/ML 1ML VIAL IV PRN ×2 (15:29→18:48)
[2022-04-28] MEDS ORDERED: MOM 30ML SUSPENSION UDC PO PRN (19:55)
[2022-04-28] MEDS: DOCUSATE SODIUM 100MG CAPSULE PO SCH (21:00)
[2022-04-29] MEDS: DOCUSATE SODIUM 100MG CAPSULE PO SCH (09:40)
[2022-04-29] MEDS: TIMOLOL MALEATE 0.5% OPHTH SOLN 5 ML OU SCH (09:41)
[2022-04-29] MEDS: FLUTICASONE PROP 0.05% NASAL SPRAY 16 GM (FLONASE) NARES SCH (09:41)
[2022-04-29] MEDS ORDERED: TRAN1DIS4 TOP ×2 (10:22→15:00)
[2022-04-29] MEDS ORDERED: ATIV1TAB7 PO ×2 (10:22→15:00)
[2022-04-29] MEDS ORDERED: MORP1SOL4 SL ×2 (10:22→15:00)
[2022-04-29] MEDS ORDERED: NITR4TASL SL ×2 (10:23→15:00)
[2022-04-29] MEDS: MORPHINE SULFATE ORAL SOLN 10 MG/5 ML UD SL PRN (13:50)
[2022-04-29] MEDS ORDERED: MEMA10TA19 PO (15:00)
[2022-04-29] MEDS ORDERED: DONE10TA90 PO (15:00)
== END 2022-04-29 13:55 | disposition hospice, inpatient (51) | DRG 281 ==
LOC: EDBD 17:29 → M ED 17:29 → M ED INP 21:12 → M MS5PR 04-27 18:51
PROVIDERS: ADMIT Internal Medicine; ATTEND Internal Medicine
DX: I21.4 Non-ST elevation (NSTEMI) myocardial infarction (principal); N18.4 Chronic kidney disease, stage 4 (severe); I12.9 Hypertensive chronic kidney disease with stage 1 through stage 4 chronic kidney disease, or unspecified chronic kidney disease; E11.22 Type 2 diabetes mellitus with diabetic chronic kidney disease; F03.90 Unspecified dementia, unspecified severity, without behavioral disturbance, psychotic disturbance, mood disturbance, and anxiety; I25.2 Old myocardial infarction; Z79.01 Long term (current) use of anticoagulants; E05.90 Thyrotoxicosis, unspecified without thyrotoxic crisis or storm; Z66 Do not resuscitate; I25.10 Atherosclerotic heart disease of native coronary artery without angina pectoris; I48.91 Unspecified atrial fibrillation; Z51.5 Encounter for palliative care; Z79.899 Other long term (current) drug therapy; Z95.0 Presence of cardiac pacemaker; Z87.891 Personal history of nicotine dependence